=== PATIENT | female | born 1975 | race Caucasian/White ===

== ENCOUNTER → 2018-08-14 11:25 | Outpatient (CLI) | payer OTHER, SELFPAY ==
[2018-08-14 14:08] LABS: Hematocrit 35.5 % (37-47); Hemoglobin 10.6 g/dl (12.0-15.0); Mean Corp Hgb Conc 29.9 g/gl (32-36); Mean Corpuscular Hgb 26.4 pg (27.0-32.0); Mean Corpuscular Volume 88.5 fL (81-99); Mean Platelet Vol. 11.3 fl (6.2-12.0); Platelet Count 327 K/mm3 (150-450); RBC Distribution Width CV 21.3 % (11.6-14.6); RBC Distribution Width SD 66.8 fl (35.1-43.9); Red Blood Count 4.01 M/mm3 (4.2-5.4); White Blood Count 7.4 K/mm3 (4.4-11.0)
[2018-08-14 14:09] LABS: Scan Indicated on CBC? Y/N YES- FLAGS NOTED
[2018-08-14 14:23] LABS: Prothrombin Time (Protime)PT. 13.2 SECONDS (11.7-14.9)
[2018-08-14 14:24] LABS: Partial Thromboplast Time 26.9 Seconds (24.1-36.2)
--- OUTSIDE RECORDS SUMMARY | 2018-10-09 20:22 | XMS RPT_ITS ---
:1975 Author Organization OHIP Care Team Providers Name Role Phone KERI DORANTES) Attending Unavailable SREEKANTH JENSEN Attending Unavailable KERI DORANTES (YODIT) Referring Unavailable DORANTES, AMY (YODIT) Attending Unavailable DORANTES, AMY (YODIT) Referring Unavailable DORANTES, KERI (YODIT) Referring Unavailable DORANTES, KERI (YODIT) Referring Unavailable CEBUL III, BJ A Attending Unavailable KERI DORANTES (YODIT) Attending Unavailable SREEKANTH JENSEN Attending Unavailable KERI DORANTES (YODIT) Referring Unavailable SREEKANTH JENSEN Attending Unavailable SREEKANTH JENSEN Referring Unavailable KERI DORANTES (YODIT) Referring Unavailable SREEKANTH JENSEN Attending Unavailable NEYHART QUEEN, SREEKANTH Attending Unavailable Sheri, Denice Attending Unavailable Cebul III, Bj Primary Care Unavailable Sheri, Denice Attending Unavailable [place], Denice Referring Unavailable Cebul III, Bj Primary Care Unavailable Neyhart-Queen, Sreekanth Attending Unavailable Neyhart-Queen, Sreekanth Referring Unavailable Cebul III, Bj Primary Care Unavailable Neyhart-Queen, Sreekanth Attending Unavailable Neyhart-Queen, Sreekanth Referring Unavailable Cebul III, Bj Primary Care Unavailable PROBLEMS PROBLEMS DATE TYPE CONDITION / CODE ATTENDING STATUS SOURCE 08/15/2018 Unknown G89.18 - Other acute Neyhart-McIntos Active [facility] postprocedural pain h, Sreekanth Community / G89.18(ICD-10) Hospital Repository 08/29/2016 Active Essential (primary) NA Active [facility] hypertension / Clinic Main I10(ICD-10) [place] Repository 06/14/2018 Active Anemia, unspecified NA Active [facility] / D64.9(ICD-10) Clinic Main [place] Repository 05/22/2018 Active Excessive and NA Active [facility] frequent [facility] Main menstruation with [place] regular cycle / Repository N92.0(ICD-10) 10/10/2017 Unknown R92.8 - Other Sheri, Denice Active [facility] abnormal and Community inconclusive Hospital findings on Repository diagnostic imaging of breast / R92.8(ICD-10) 10/09/2017 Unknown Z12.31 - Encounter SheriBenson hydey Active [facility] for screening Community mammogram for Hospital malignant neoplasm Repository of breast / Z12.31(ICD-10) PROCEDURES PROCEDURES No Procedure Records FoundRESULTS RESULTS CNOV Observed: 08/29/2018 Status: COMPLETED Source: [place] 8:20 AM [facility] REPOSITORY Office Visit (WOOB) CLAIRE RICHMOND ([id number]) 1975 F Date Time Provider Department 08/29/18 8:20 AM SREEKANTH JENSEN During your visit today, we recorded the following information about you: Blood pressure Weight 106/68 53.5 kg Sreekanth Eaton MD 08/29/2018 9:03 AM Signed SUBJECTIVE: 42 year old female presents for 2 week post-op exam. Doing well. OBJECTIVE: Incision: Dry and intact, without redness Abdomen: Soft, Non-tender and No palpable masses PLAN: RTO for 6 week check I have reviewed and updated past medical and surgical history, medications and allergies. Sreekanth Eaton MD Referring Provider: SELF [[id number]] Allergies As of Date: 08/29/2018 Noted Allergy Reaction BENTYL (DICYCLOMINE HCL) 04/01/2009 5 - Intolerance Comments: Causes pt. headaches AMOXICILLIN 07/14/2005 PENICILLINS 07/14/2005 Date Reviewed: 08/29/2018 Reviewed by: Raiza Arechiga Ma - Fully Assessed Reason for Visit: Post-Op Visit [1236] Primary Visit Diagnosis:Post-operative state [Z98.890] Prescriptions as of 08/29/2018 Sig: ESCITALOPRAM 20 MG TABLET Take 1 tablet by mouth once d* FERROUS GLUCONATE 324 MG (36 * Take 1 tablet by mouth twice * CENTRUM ORAL Take by mouth once daily. 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 Follow-up and Disposition History Recorded Letter Text Sreekanth Queen MD [facility] [address], [place] [address] 08/29/2018 RE: Claire Richmond : 1975 To Whom It May Concern: Claire has been under my care and may return to work on 09/02/18 with a lifting restriction of [address] until she is 6 weeks post op on 09/26/2018. Sincerely, Sreekanth Queen MD Encounter Status:Closed by SREEKANTH QUEEN MD on 08/29/18 PROGRESS Observed: 08/29/2018 Status: COMPLETED Source: [place] 8:07 AM [facility] HNO ID: [id number] Author: Sreekanth Queen Service: (none) Author Type: Physician Type: Progress Notes Filed: 08/29/2018 9:03 AM Note Text: SUBJECTIVE: 42 year old female presents for 2 week post-op exam. Doing well. OBJECTIVE: Incision: Dry and intact, without redness Abdomen: Soft, Non-tender and No palpable masses PLAN: RTO for 6 week check I have reviewed and updated past medical and surgical history, medications and allergies. Sreekanth Eaton MD DISCHARGE INSTRUCTION Observed: 08/15/2018 Status: F Source: [place] 12:[address] [facility] REPOSITORY [facility] Medical Records Department [address] [place] [address] Instructions for Home/Discharge Instructions 08/15/18 1230 MR#: [id number] Acct: [id number] Name: CLAIRE RICHMOND Rep #: [id number] : 1975 42 From: Sreekanth Queen MD PCP: Bj Angel III, MD Status: REG [facility] Discharge Diet: No Restrictions Discharge Activity: Return to Normal Activity, May Not Drive - while taking narcotic pain medications., May Shower Return to work on:: 09/19/18 May shower in (days): 1 May resume sexual activity in: 6-8 weeks Lifting Restrictions: 20 Call your doctor if your incision/area has: Continuous Slow Oozing, Sudden Increased Bleeding, Increased Pain/ Swelling, Increased Redness, Foul Smelling Discharge Call your doctor if you observe: Fever of 101 or Higher, Inability to urinate, Inability to have a bowel movement, Using more than one pad per hour Cleanse incision/area with: - - do not pick off skin glue- you may shower let soap and water run over incision sites and dab dry. Allergies/Adverse Reactions: Allergies amoxicillin [Amoxicillin] Allergy (Verified 08/09/18 12:59) Rash dicyclomine HCl [From Bentyl] Allergy (Verified 08/09/18 12:59) Other Penicillins Allergy (Verified 08/09/18 12:59) Rash Medications to take at Discharge Multivitamins,Therapeutic [Multivitamin] 1 tablet PO DAILY 07/08/13 Escitalopram Oxalate [Lexapro] 20 mg PO DAILY 08/09/18 Ferrous Gluconate 324 mg PO DAILY 08/09/18 Lisinopril [Zestril] 5 mg PO DAILY 08/09/18 Naproxen Sodium [Aleve] 220 mg PO PRN PRN 08/09/18 Insulin Lispro [Humalog KwikPen] 0 unit SC Q4H PRN PRN insuln.pen 08/15/18 Orders to be completed after discharge: Type AND Screen Time Frame: 08/10/18, Location: None Selected Primary Care Physician: Bj Angel III, MD [Primary Care Provider] - Test Results: Test results from this visit will be discussed in further detail at your follow-up appointment, if applicable. Please Follow Up With: Sreekanth Eaton MD When: as scheduled in 2 weeks 08/15/18 1231 <Electronically signed by Sreekanth Queen MD> Date Sreekanth Eaton MD CC: Bj Angel III, MD OPERATIVE REPORT Observed: 08/15/2018 Status: F Source: [place] 12:[address] [facility] REPOSITORY [facility] Medical Records Department [address] [place] [address] Operative Report 08/15/18 1217 MR#: [id number] Acct: [id number] Name: CLAIRE RICHMOND Rep #: [id number] : 1975 42 From: Sreekanth Queen MD PCP: Jeanne LEE MD,Bj Status: REG [facility] Location: [place] [address] Report of Operation Date of Procedure: 08/15/18 Pre-Operative Diagnosis: fibroid uterus, AUB, Anemia Post-Operative Diagnosis: same Surgery/Procedure Performed:: TLH, Bilateral salpingectomy, Cystoscopy Description of Surgical Findings:: Enlarged Fibroid uterus, normal ovaries bilaterally. Cystoscopy performed good ureteral efflux noted, bladder intact. Uterus weight post op approx 282grams. IUD removed from uterus when Bivalved. leisure studies professor: Marleni Basilio leisure studies professor: Cris Hoyos Type of Anesthesia:: General Special Medications: marcaine .5% Specimen's removed: uterus, cervix, bilateral tubes Drains: Cm Estimated Blood Loss (mL): 60 Fluids Replaced: 800 Description of Procedure: Patient take to OR and prepped and draped in usual sterile fashion in dorsal lithotomy position with her arms tucked in a neurologically safe and neutral position. The uterus sounded to 11 cm. The Vcare uterine manipulator was sutured into place at 3/9:00 position and cm were placed. Attention was turned to the abdomen. All port sites were infiltrated with 0.5% marcaine before the incisions were made. The anterior abdominal wall was tented up with towel clamps and using a direct entry approach a 5 mm supraumbilical port was placed. Intraperitoneal placement was confirmed with the laparoscope and the pneumoperitoneum was created. The patient was placed in Trendelenburg and 5 mm right and left lower quadrant ports were placed under direct visualization. Air seal rapid insufflator was used. The bowel was swept away. Ovaries appeared normal. The mesosalpinx starting at fimbriated end were grasped, clamped, sealed and transected with the Ligasure. The round ligaments were divided. The anterior peritoneum was dissected down to create the bladder flap with blunt dissection and the LigaSure. The uterine arteries were isolated, clamped, sealed and cut. There was minimal back bleeding from the uterus. Straight bites on uterine arteries performed to drop them off the cuff. The Vcare was used as guide to create colpotomy using monopolar tip of ligasure. once specimen was removed attention was turned to vaginal portion. The specimen was handed off. Modified Stokes support stitch placed at uterosacral ligaments through peritoneum using PDS sutrure. The cuff was closed with interrupted 0-vicryl figure of 8 sutures. Cystoscopy was performed bilateral ureters were visualized with good efflux. bladder was intact. cm replaced and sponge stick placed in vagina. The pneumoperitoneum was recreated small oozing from right pedicled- sealed with ligasure and dionne placed- the cuff and pedicles were noted to be hemostatic. trochars removed. The skin incisions were closed with skin glue and 3-0 monocryl in the LLQ port site. The vaginal sweep was completed by me. Grafts/Implants Used: none Grafts/Implants Used: none - Complications none - Admit VTE Documentation VTE Present on Admission: Yes VTE Mechan Device Prophylaxis: SCD's VTE Pharm Prophylaxis ordered?: Yes 08/15/18 1225 <Electronically signed by Sreekanth Queen MD> Date Sreekanth Eaton MD CC: Sreekanth Eaton MD; Bj Angel III, MD Signed ,URINE Collected: 08/15/2018 Status: F Source: [place] 8:[address] [facility] REPOSITORY Order Comment: Reason for Laboratory Test PRE OP TYPE CODE TESTS RESULT OUT OF REFERENCE UNITS RANGE LAB L400.8000 Negative Normal HCGUQUAL Negative Result Comment: Very dilute urine specimens, as indicated by a low specific gravity, may not contain territory representative levels of hCG. If is still suspected, a first morning urine specimen should be collected 48 hours later and tested. Performed By: #### L400.7600 #### [facility] [place] [facility] [address] [place], [address] BEDSIDE GLUCOSE Collected: 08/15/2018 Status: F Source: [place] 8:[address] [facility] REPOSITORY TYPE CODE TESTS RESULT OUT OF RANGE REFERENCE UNITS LAB L501.080 70-110 mg/dL Normal BEDSIDE GLU 92 Result Comment: MANAGEMENT OF PATIENT CARE PER NURSING PROTOCOL Performed By: #### L501.080 #### [facility] [place] [facility] Point of Care [address] [place], [place] [address] CBC-COMPLETE BLOOD CNT Collected: 08/15/2018 Status: F Source: [place] NO DIFF 8:[address] [facility] REPOSITORY TYPE CODE TESTS RESULT OUT OF RANGE REFERENCE UNITS LAB L100.1000 4.4-11.0 K/mm3 Normal WBC 6.8 LAB L100.1200 4.2-5.4 M/mm3 Normal RBC 4.37 LAB L100.1300 12.0-15.0 g/dl Low HGB 11.3 LAB L100.1400 37-47 % Normal HCT 37.8 LAB L100.1500 81-99 fL Normal MCV 86.5 LAB L100.1600 27.0-32.0 pg Low MCH 25.9 LAB L100.1700 32-36 g/gl Low MCHC 29.9 LAB L100.1810 11.6-14.6 % High RDW CV 21.1 LAB L100.1820 35.1-43.9 fl High RDW SD 66.7 LAB L100.1900 150-450 K/mm3 Normal PLT 313 LAB L100.2000 6.2-12.0 fl Normal MPV 9.4 Performed By: #### L100.0500, L100.4500 #### [facility] [place] [facility] [address] [place], [place], [id number] DIFFERENTIAL COMMENT Collected: 08/15/2018 Status: F Source: [place] 8:[address] [facility] REPOSITORY TYPE CODE TESTS RESULT OUT OF RANGE REFERENCE UNITS LAB L100.4500 Normal SMEAR COMMENT SCANNED Result Comment: 1+ ANISOCYTOSIS RARE ELLIPTOCYTES Performed By: #### L100.0500, L100.4500 #### [facility] [place] [facility] [address] [place], [place], [id number] PROTHROMBIN TIME W/INR Collected: 08/15/2018 Status: F Source: [place] 8:[address] [facility] REPOSITORY TYPE CODE TESTS RESULT OUT OF RANGE REFERENCE UNITS LAB L300.4150 11.7-14.9 SECONDS Normal PROTIME 13.3 LAB L300.4200 Normal INR 1.0 Performed By: #### L300.3900, L300.4310 #### [facility] [place] [facility] [address] [place], [address] PARTIAL THROMBOPLAST Collected: 08/15/2018 Status: F Source: [place] TIME 8:[address] [facility] REPOSITORY TYPE CODE TESTS RESULT OUT OF RANGE REFERENCE UNITS LAB L300.4310 24.1-36.2 Seconds Normal PTT 26.0 Performed By: #### L300.3900, L300.4310 #### [facility] [place] [facility] [address] [place], [address] TYPE AND SCREEN Collected: 08/15/2018 Status: F Source: [place] 8:[address] [facility] REPOSITORY Order Comment: Reason for Type AND Screen/Red Cells: SURGERY TYPE CODE TESTS RESULT OUT OF RANGE REFERENCE UNITS LAB B10.0800 A Normal BLOOD TYPE GEL POSITIVE LAB B100.4000 Normal Antibody NEGATIVE Screen Performed By: #### B101.7450 #### [facility] [place] [facility] [address] [place], [address] HYSTERECTOMY SPECIMEN Observed: 08/15/2018 Status: F Source: [place] 12:[address] [facility] REPOSITORY Patient: CLAIRE RICHMOND : 1975 (42/F) Acct Num: [id number] Phys: Angelito BILLINGS,Sreekanth Unit Num: [id number] Loc: [facility] Specimen: [id number] Received: 08/15/18 - 2936 Spec Type: HYSTERECT TISSUES 1 TISSUES: Uterus, NOS GROSS DESCRIPTION Received in fixative is one container labeled with the patient's name and designated uterus, cervix, bilateral fallopian tubes. The specimen consists of a previously opened hysterectomy specimen consisting of uterus with cervix, attached left fallopian tube and detached right fallopian tube. The uterus with cervix weighs 273 gm and measures 12 x 8 x 7 cm. The serosal surface is haynes, glistening. The ectocervical mucosa is unremarkable. The endocervical canal measures 3.5 cm in length and the endocervical mucosa is unremarkable. The endometrial cavity is saucer-shape and measures 5 cm in length and up to 3 cm in width. Sections of the uterine wall reveal multiple intramural and submucosal nodular masses. One of the masses appears to be pedunculated and attached at the level of internal os. The largest mass is pedunculated nodular mass attached at internal os and measures up to 5.5 cm in diameter. Sections of these masses reveal haynes whorled cut surfaces without areas of hemorrhage, necrosis or cystic degeneration. The uninvolved uterine wall measures up to 2.5 cm in thickness. The right fallopian tube measures 5 cm in length and 0.5 cm in diameter. The fimbrial end is identified. The left fallopian tube is similar appearance to right and measures 5 cm in length and 0.6 cm in diameter. Sections of both fallopian tubes reveal unremarkable cut surfaces. Parts Designer sections are submitted in 11 cassettes as follows: 1 - anterior cervix, 2 - posterior cervix, 3 AND 4 - anterior uterine wall, 5 AND 6 - posterior uterine wall, 7 - smaller intramural and submucosal nodular masses, 8 - intermediate sized nodular mass, 9 - largest nodular mass, 10 - right fallopian tube, 11 - left fallopian tube. / [place]:melanie 08/15/18 TC:1 CPT: 38381 HEADER OPERATION: Laparoscopic total hysterectomy, bilateral salpingectomy PRE-OP DIAGNOSIS: Abnormal uterine bleeding, intramural and submucous leiomyoma of uterus, iron deficiency anemia due to chronic blood loss TISSUE SUBMITTED: Uterus, cervix, bilateral fallopian tubes MICROSCOPIC DESCRIPTION Slides are reviewed. MICROSCOPIC DIAGNOSIS Uterus, cervix, bilateral fallopian tubes, total hysterectomy and bilateral salpingectomy: Cervix - no pathologic diagnosis. Endometrium - consistent with exogenous hormone effect. Myometrium - intramural and submucosal leiomyomas (largest measuring 5.5 cm in diameter). Bilateral fallopian tubes - no pathologic diagnosis. Cherie 08/16/18 Signed Darion Foreman 08/16/18 <signature on file> Performed By: #### PHYST #### [facility] [place] [facility] [address] [place], [place] [address] [place], [address] CBC-COMPLETE BLOOD CNT Collected: 08/14/2018 Status: F Source: [place] NO DIFF 11:[address] [facility] REPOSITORY Order Comment: Reason for Laboratory Test PRE OP TYPE CODE TESTS RESULT OUT OF RANGE REFERENCE UNITS LAB L100.1000 4.4-11.0 K/mm3 Normal WBC 7.4 LAB L100.1200 4.2-5.4 M/mm3 Low RBC 4.01 LAB L100.1300 12.0-15.0 g/dl Low HGB 10.6 LAB L100.1400 37-47 % Low HCT 35.5 LAB L100.1500 81-99 fL Normal MCV 88.5 LAB L100.1600 27.0-32.0 pg Low MCH 26.4 LAB L100.1700 32-36 g/gl Low MCHC 29.9 LAB L100.1810 11.6-14.6 % High RDW CV 21.3 LAB L100.1820 35.1-43.9 fl High RDW SD 66.8 LAB L100.1900 150-450 K/mm3 Normal PLT 327 LAB L100.2000 6.2-12.0 fl Normal MPV 11.3 Performed By: #### L100.0500 #### [facility] [place] [facility] [address] [facility] [facility] [place], [place], [id number] PROTHROMBIN TIME W/INR Collected: 08/14/2018 Status: F Source: [place] 11:[address] [facility] REPOSITORY Order Comment: Reason for Laboratory Test PRE OP TYPE CODE TESTS RESULT OUT OF RANGE REFERENCE UNITS LAB L300.4150 11.7-14.9 SECONDS Normal PROTIME 13.2 LAB L300.4200 Normal INR 1.0 Performed By: #### L300.3900, L300.4310 #### [facility] [place] [facility] [address] [place], [place], [address] PARTIAL THROMBOPLAST Collected: 08/14/2018 Status: F Source: [place] TIME 11:[address] [facility] REPOSITORY Order Comment: Reason for Laboratory Test PRE OP TYPE CODE TESTS RESULT OUT OF RANGE REFERENCE UNITS LAB L300.4310 24.1-36.2 Seconds Normal PTT 26.9 Performed By: #### L300.3900, L300.4310 #### [facility] [place] [facility] [address] [place], [address] HISTORY PHYSICAL Observed: 07/31/2018 Status: COMPLETED Source: [place] 9:02 AM [facility] [place] REPOSITORY HNO ID: [id number] Author: Sreekanth Queen Service: (none) Author Type: Physician Type: HANDP Filed: 07/31/2018 9:52 AM Note Text: Claire Richmond is a 42 year old female who presents for AUB, , fibroid uterus, chronic anemia- pt is scheduled for TLH, Bilateral salpingectomy, cystoscopy, possible use of power morcellation with containment system and possible ex lap. Pt had Mirena IUD placed and has had heavy bleeding with this at menses. Pt has chronic anemia- most recent lowest hg/hc was 6.9/24.7- after iron therapy was 8.4/29.9. Pt does not have any dizziness, cp, sob. Pt at this time is not candidate for oral contraceptions due to smoking, MIRENA IUD attempted but has not helped. Pt would like to proceed with surgical mgmt at this time. PAST MEDICAL HISTORY Diagnosis Date - Benign hypertension 08/29/2016 - Carpal tunnel syndrome on both sides 08/26/2013 - Encounter for insertion of mirena IUD 05/22/2018 [facility] - IBS (irritable bowel syndrome) - Iron deficiency anemia due to chronic blood loss 06/26/2018 PAST SURGICAL HISTORY Procedure Laterality Date - DELIVERY ONLY , low cervical, X-2 - REVISE MEDIAN N/CARPAL TUNNEL SURG 07-24-14 RIGHT - REVISE MEDIAN N/CARPAL TUNNEL SURG 08-03-14 LEFT FAMILY HISTORY Problem Relation Age of Onset - Lipids Mother High Cholesterol - Diabetes Father Type 2 - Hypertension Father - Prostate Cancer Father - Diabetes Maternal Grandmother - Hypertension Maternal Grandmother - Cancer Maternal Grandfather lung cancer - None Sister - None Sister Social History Marital status: Spouse name: RICO Years of education: 13 Number of children: 2 Occupational History Occupation Employer [employer] * Social History Main Topics Smoking status: Current Every Day Smoker Packs/day: 1.00 Years: 2.00 Types: Cigarettes Last attempt to quit: 07/03/2013 Smokeless tobacco: Never Used Alcohol use: Yes Comment: Rarely Drug use: No Sexual activity: Yes Partners with: Male control/protection: Pill Current Outpatient Prescriptions: ibuprofen (MOTRIN) 600 mg tablet Take 1 tablet by mouth every 6 hours as needed. FOR PAIN. oxyCODONE-Acetaminophen (PERCOCET) 2.5-325 mg per tablet Take 1 tablet by mouth every 6 hours as needed for Pain for up to 7 days. simethicone, chewable (MYLICON) 80 mg chewable tablet Take 1 tablet by mouth every 6 hours as needed. norethindrone (AYGESTIN) 5 mg tablet Take 2 tablets by mouth as directed. Take 2 tablets every 8 hours until bleeding stops then 1 tablet twice a day x 2 days then 1 tablet daily until your appt. escitalopram oxalate (LEXAPRO) 20 mg tablet Take 1 tablet by mouth once daily. lisinopril (ZESTRIL, PRINIVIL) 5 mg tablet Take 1 tablet by mouth once daily. Ferrous Gluconate 324 mg (36 mg iron) tab Take 1 tablet by mouth twice daily with meals. 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 No current facility-administered medications for this visit. Allergies As of Date: 07/31/2018 Allergen Noted Reaction BENTYL [DICYCLOMINE HCL] 04/01/2009 Intolerance AMOXICILLIN 07/14/2005 PENICILLINS 07/14/2005 Fully Assessed 07/31/2018 REVIEW OF SYSTEMS Abdomen: minimal discomfort. No constipation or diarrhea Bladder: no dysuria, no incontinence . Breast: No breast lumps, nipple d/c, overlying skin changes, redness or skin retraction. Expanded ROS: GENERAL: No weight loss, malaise or fevers Allergies and current medication updated:Yes EXAM: BP 118/72 Ht 5' 2 (1.58m) Wt 120 lb (54.4kg) BMI 21.94 kg/(m2). GENERAL: pleasant, female in no apparent distress HEENT: Normocephalic, atraumatic, mucus membranes moist and no lesions NECK: full range of motion DERMATOLOGY: Normal, without lesions, non-icteric and non-hirsute CARDIAC: Regular rate and rhythm CHEST: Normal inspiratory effort PELVIC: deferred today- normal on previous exam. No iud strings seen on previous exam BIMANUAL: deferred today- Enlarged uterus on previous exam NEURO: alert and oriented x3,exam grossly non-focal ULTRASOUND REPORT: Overall impression: uterus top normal size. there are two fibroids- one that is 5.3cm in greatest dimension that is intramural in nature but does impinge on the enodmetrial cavity. The other fibroid is intramural and is 4.2cm in greatest dimension. There is an IUD present however unable to see the ARMS of the IUD but it appears to be located toward uterine fundus. Endometrial thickness is 6.1mm Right and left ovaries appear normal no free fluid in CDS. Recommendations / therapy: May consider leaving IUD in place if patient is asymptomatic. Could consider other hormonal options to control menstruation if surgical managment is not desired or appropriate for patient. Follow- up: f/u as clinically indicated. _ Indication: IUD location. _ History: Last menstrual period: 04/22/2018. 5th day of cycle. _ Gynecological Ultrasonography: Uterus: normal, anteverted. Size: Longitudinal 106 mm. Anterio- posterior 74 mm. Transverse 85 mm. Volume: 349.1 ml. Fibroids: Fibroid 1: Size: 53 mm x 36 mm x 52 mm. Type: submucous fibroid, more than 50% projects into the endometrial cavity. Position: rt mid uterus. Fibroid 2: Size: 42 mm x 37 mm x 37 mm. Type: posterior. Position: left mid uterus. Endometrium: endometrial cavity could not be seen clearly. Endometrial cavity: is distorted by the presence of a submucous fibroid. Endometrium thickness total: 6.1 mm. Comment: IUD seen in uterus, unknown if in correct location due to large submucosal fibroid. Right Ovary: normal. Visible. Morphology: normal morphology. Right Ovary size: 32 mm x 24 mm x 14 mm. Volume: 5.6 ml. Left Ovary: normal. Visible. Morphology: normal morphology. Left Ovary size: 28 mm x 18 mm x 19 mm. Volume: 5.0 ml. Cul de Sac / Pouch of Alonzo: no free fluid visible. ASSESSMENT AND PLAN: Encounter Diagnosis ICD-10-CM 1. Abnormal uterine bleeding (AUB) N93.9 2. Post-op pain G89.18 oxyCODONE-Acetaminophen (PERCOCET) 2.5-325 mg per tablet 3. Intramural and submucous leiomyoma of uterus D25.1 D25.0 4. Iron deficiency anemia due to chronic blood loss D50.0 5. Pt has been counseled on risks/benefits and alternatives of surgery including but not limited to anesthesia, bleeding, infection, injury to pelvic structures including bowel, bladder, ureters and vessels. Pt wishes to proceed with surgery at this time. 6. Use of power morcellation with containment system reviewed with patient 7. ERAS protocol reviewed 8. Consent signed today- proceed with TLH, Bilateral salpingectomy, cystoscopy Sreekanth Eaton MD CNOV Observed: 07/31/2018 Status: COMPLETED Source: [place] 8:20 AM [facility] REPOSITORY Office Visit (WOOB) CLAIRE RICHMOND ([id number]) 1975 F Date Time Provider Department 07/31/18 8:20 AM SREEKANTH JENSEN WOOB During your visit today, we recorded the following information about you: Blood pressure Weight Height 118/72 54.4 kg 1.575 m Sreekanth Eaton MD 07/31/2018 9:52 AM Signed Claire Richmond is a 42 year old female who presents for AUB, , fibroid uterus, chronic anemia- pt is scheduled for TLH, Bilateral salpingectomy, cystoscopy, possible use of power morcellation with containment system and possible ex lap. Pt had Mirena IUD placed and has had heavy bleeding with this at menses. Pt has chronic anemia- most recent lowest hg/hc was 6.9/24.7- after iron therapy was 8.4/29.9. Pt does not have any dizziness, cp, sob. Pt at this time is not candidate for oral contraceptions due to smoking, MIRENA IUD attempted but has not helped. Pt would like to proceed with surgical mgmt at this time. PAST MEDICAL HISTORY Diagnosis Date - Benign hypertension 08/29/2016 - Carpal tunnel syndrome on both sides 08/26/2013 - Encounter for insertion of mirena IUD 05/22/2018 HMB - IBS (irritable bowel syndrome) - Iron deficiency anemia due to chronic blood loss 06/26/2018 PAST SURGICAL HISTORY Procedure Laterality Date - DELIVERY ONLY , low cervical, X-2 - REVISE MEDIAN N/CARPAL TUNNEL SURG 07-24-14 RIGHT - REVISE MEDIAN N/CARPAL TUNNEL SURG 08-03-14 LEFT FAMILY HISTORY Problem Relation Age of Onset - Lipids Mother High Cholesterol - Diabetes Father Type 2 - Hypertension Father - Prostate Cancer Father - Diabetes Maternal Grandmother - Hypertension Maternal Grandmother - Cancer Maternal Grandfather lung cancer - None Sister - None Sister Social History Marital status: Spouse name: RICO Years of education: 13 Number of children: 2 Occupational History Occupation Employer Comment [employer]* [employer] * Social History Main Topics Smoking status: Current Every Day Smoker Packs/day: 1.00 Years: 2.00 Types: Cigarettes Last attempt to quit: 07/03/2013 Smokeless tobacco: Never Used Alcohol use: Yes Comment: Rarely Drug use: No Sexual activity: Yes Partners with: Male control/protection: Pill Current Outpatient Prescriptions: ibuprofen (MOTRIN) 600 mg tablet Take 1 tablet by mouth every 6 hours as needed. FOR PAIN. oxyCODONE-Acetaminophen (PERCOCET) 2.5-325 mg per tablet Take 1 tablet by mouth every 6 hours as needed for Pain for up to 7 days. simethicone, chewable (MYLICON) 80 mg chewable tablet Take 1 tablet by mouth every 6 hours as needed. norethindrone (AYGESTIN) 5 mg tablet Take 2 tablets by mouth as directed. Take 2 tablets every 8 hours until bleeding stops then 1 tablet twice a day x 2 days then 1 tablet daily until your appt. escitalopram oxalate (LEXAPRO) 20 mg tablet Take 1 tablet by mouth once daily. lisinopril (ZESTRIL, PRINIVIL) 5 mg tablet Take 1 tablet by mouth once daily. Ferrous Gluconate 324 mg (36 mg iron) tab Take 1 tablet by mouth twice daily with meals. 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 No current facility-administered medications for this visit. Allergies As of Date: 07/31/2018 Allergen Noted Reaction BENTYL [DICYCLOMINE HCL] 04/01/2009 Intolerance AMOXICILLIN 07/14/2005 PENICILLINS 07/14/2005 Fully Assessed 07/31/2018 REVIEW OF SYSTEMS Abdomen: minimal discomfort. No constipation or diarrhea Bladder: no dysuria, no incontinence . Breast: No breast lumps, nipple d/c, overlying skin changes, redness or skin retraction. Expanded ROS: GENERAL: No weight loss, malaise or fevers Allergies and current medication updated:Yes EXAM: BP 118/72 Ht 5' 2 (1.58m) Wt 120 lb (54.4kg) BMI 21.94 kg/(m2). GENERAL: pleasant, female in no apparent distress HEENT: Normocephalic, atraumatic, mucus membranes moist and no lesions NECK: full range of motion DERMATOLOGY: Normal, without lesions, non-icteric and non-hirsute CARDIAC: Regular rate and rhythm CHEST: Normal inspiratory effort PELVIC: deferred today- normal on previous exam. No iud strings seen on previous exam BIMANUAL: deferred today- Enlarged uterus on previous exam NEURO: alert and oriented x3,exam grossly non-focal ULTRASOUND REPORT: Overall impression: uterus top normal size. there are two fibroids- one that is 5.3cm in greatest dimension that is intramural in nature but does impinge on the enodmetrial cavity. The other fibroid is intramural and is 4.2cm in greatest dimension. There is an IUD present however unable to see the ARMS of the IUD but it appears to be located toward uterine fundus. Endometrial thickness is 6.1mm Right and left ovaries appear normal no free fluid in CDS. Recommendations / therapy: May consider leaving IUD in place if patient is asymptomatic. Could consider other hormonal options to control menstruation if surgical managment is not desired or appropriate for patient. Follow- up: f/u as clinically indicated. Indication: IUD location. History: Last menstrual period: 04/22/2018. 5th day of cycle. Gynecological Ultrasonography: Uterus: normal, anteverted. Size: Longitudinal 106 mm. Anterio- posterior 74 mm. Transverse 85 mm. Volume: 349.1 ml. Fibroids: Fibroid 1: Size: 53 mm x 36 mm x 52 mm. Type: submucous fibroid, more than 50% projects into the endometrial cavity. Position: rt mid uterus. Fibroid 2: Size: 42 mm x 37 mm x 37 mm. Type: posterior. Position: left mid uterus. Endometrium: endometrial cavity could not be seen clearly. Endometrial cavity: is distorted by the presence of a submucous fibroid. Endometrium thickness total: 6.1 mm. Comment: IUD seen in uterus, unknown if in correct location due to large submucosal fibroid. Right Ovary: normal. Visible. Morphology: normal morphology. Right Ovary size: 32 mm x 24 mm x 14 mm. Volume: 5.6 ml. Left Ovary: normal. Visible. Morphology: normal morphology. Left Ovary size: 28 mm x 18 mm x 19 mm. Volume: 5.0 ml. Cul de Sac / Pouch of Alonzo: no free fluid visible. ASSESSMENT AND PLAN: Encounter Diagnosis ICD-10-CM 1. Abnormal uterine bleeding (AUB) N93.9 2. Post-op pain G89.18 oxyCODONE-Acetaminophen (PERCOCET) 2.5-325 mg per tablet 3. Intramural and submucous leiomyoma of uterus D25.1 D25.0 4. Iron deficiency anemia due to chronic blood loss D50.0 5. Pt has been counseled on risks/benefits and alternatives of surgery including but not limited to anesthesia, bleeding, infection, injury to pelvic structures including bowel, bladder, ureters and vessels. Pt wishes to proceed with surgery at this time. 6. Use of power morcellation with containment system reviewed with patient 7. ERAS protocol reviewed 8. Consent signed today- proceed with TLH, Bilateral salpingectomy, cystoscopy Sreekanth Eaton MD Referring Provider: SELF [[id number]] Allergies As of Date: 07/31/2018 Noted Allergy Reaction BENTYL (DICYCLOMINE HCL) 04/01/2009 5 - Intolerance Comments: Causes pt. headaches AMOXICILLIN 07/14/2005 PENICILLINS 07/14/2005 Date Reviewed: 07/31/2018 Reviewed by: Raiza Arechiga Ma - Fully Assessed Reason for Visit: Pre-Op Visit [1235] Primary Visit Diagnosis:Abnormal uterine bleeding (AUB) [N93.9] Other Visit Diagnoses:Post-op pain [G89.18] Intramural and submucous leiomyoma of uterus [D25.1, D25.0] Iron deficiency anemia due to chronic blood loss [D50.0] Order(s):ibuprofen (MOTRIN) 600 mg tabletTake 1 tablet by mouth every 6 hours as needed. FOR PAIN.Disp: 30 tabletRfl: 0 oxyCODONE-Acetaminophen (PERCOCET) 2.5-325 mg per tabletTake 1 tablet by mouth every 6 hours as needed for Pain for up to 7 days.Disp: 10 tabletRfl: 0 simethicone, chewable (MYLICON) 80 mg chewable tabletTake 1 tablet by mouth every 6 hours as needed.Disp: 30 tabletRfl: 0 Prescriptions as of 07/31/2018 Sig: IBUPROFEN 600 MG TABLET Take 1 tablet by mouth every * OXYCODONE-ACETAMINOPHEN 2.5 M* Take 1 tablet by mouth every * SIMETHICONE 80 MG CHEWABLE TA* Take 1 tablet by mouth every * NORETHINDRONE ACETATE 5 MG TA* Take 2 tablets by mouth as di* ESCITALOPRAM 20 MG TABLET Take 1 tablet by mouth once d* LISINOPRIL 5 MG TABLET Take 1 tablet by mouth once d* FERROUS GLUCONATE 324 MG (36 * Take 1 tablet by mouth twice * CENTRUM ORAL Take by mouth once daily. 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 FOR PAIN. OXYCODONE-ACETAMINOPHEN 2.5 MG-325 M* 10 t* 0 07/31/2018 08/07/2018 Class: Print RX Route: ORAL Sig: Take 1 tablet by mouth every 6 hours as needed for Pain for up to 7 days. SIMETHICONE 80 MG CHEWABLE TABLET 30 t* 0 07/31/2018 Route: ORAL Sig: Take 1 tablet by mouth every 6 hours as needed. Encounter Status:Closed by SREEKANTH QUEEN MD on 07/31/18 PROGRESS Observed: 07/28/2018 Status: COMPLETED Source: [place] 4:38 PM [facility] REPOSIT[facility] HNO ID: [id number] Author: Bj Angel III Service: (none) Author Type: Physician Type: Progress Notes Filed: 07/28/2018 4:38 PM Note Text: Claire, The lab results are normal, with the exception of the anemia. Hopefully the upcoming surgery will lead to correction of the anemia. Bj Angel III, MD, FAAFP CBC Collected: 07/25/2018 Status: F Source: [place] 11:50 AM [facility] REPOSIT[facility] TYPE CODE TESTS RESULT OUT OF REFERENCE UNITS RANGE LAB WBC 3.70-11.00 k/uL WBC 7.46 LAB RBC 3.90-5.20 m/uL Low RBC 3.39 LAB HGB 11.5-15.5 g/dL Low Hemoglobin 8.4 LAB HCT 36.0-46.0 % Low Hematocrit 29.9 LAB MCV 80.0-100.0 fL MCV 88.2 LAB MCH 26.0-34.0 pG Low MCH 24.8 LAB MCHC 30.5-36.0 g/dL Low MCHC 28.1 LAB RDWCV 11.5-15.0 % RDW-CV High 21.2 LAB PLTCT 150-400 k/uL Platelet Count 322 LAB MPV 9.0-12.7 fL MPV 11.0 LAB ABSNUC <0.01 k/uL Absolute nRBC <0.01 Performed By: #### CBC, CMP #### [facility] [address] [address] COMP METABOLIC PANEL Collected: 07/25/2018 Status: F Source: [place] 11:50 AM [facility]POS[facility] TYPE CODE TESTS RESULT OUT OF REFERENCE UNITS RANGE LAB TP 6.3-8.0 g/dL Protein, Total 7.0 LAB ALB 3.9-4.9 g/dL Albumin 4.2 LAB CA 8.5-10.2 mg/dL Calcium, Total 9.0 LAB TBIL 0.2-1.3 mg/dL Bilirubin, Total 0.2 LAB ALKP 34-123 U/L Alkaline Phosphatase 53 LAB AST 13-35 U/L AST 19 LAB GLU 74-99 mg/dL Glucose 78 Result Comment: The [place] Diabetes Association (ADA) provides guidance for cutoff values for fasting glucose and random glucose. The ADA defines fasting as no caloric intake for at least 8 hours. Fas ting plasma glucose results between 100 to 125 mg/dL indicate increased risk for diabetes (prediabetes). Fasting plasma glucose results greater than or equal to 126 mg/dL meet the criteria for diagnosis of diabetes. In the absence of unequivocal hyperglycemia, results should be confirmed by repeat testing. In a patient with classic symptoms of hyperglycemia or hyperglycemic crisis, random plasma glucose results greater than or equal to 200 mg/dL meet the criteria for diagnosis of diabetes. Reference: Standards of Medical Care in Diabetes 2016, [place] Diabetes Association. Diabetes Care. 2016.39(Suppl 1). LAB BUN 7-21 mg/dL BUN 18 LAB CRET 0.58-0.96 mg/dL Creatinine 0.87 LAB NA 136-144 mmol/L Sodium 142 LAB K 3.7-5.1 mmol/L Potassium 4.3 LAB CL 97-105 mmol/L Chloride 102 LAB CO2 22-30 mmol/L CO2 27 LAB AGAP 9-18 mmol/L Anion Gap 13 LAB ALT 7-38 U/L ALT 8 LAB GFRAA eGFR- Amer. >60 LAB GFRNAA . eGFR-All Other Races >60 Result Comment: eGFR (Estimated GFR) Units of measure: mL/min/1.73 meters squared eGFR is derived from the reexpressed MDRD Study equation using the following parameters: serum creatinine, age, gender and race. The creatinine assay has been calibrated to be traceable to IDMS. An eGFR <60 mL/min/1.73m2 for >3 months is consistent with chronic kidney disease. Refer to KDOQI guidelines for clinical interpretation. In patients with unstable renal function, e.g. those with acute kidney injury, the eGFR may not accurately reflect actual GFR. Performed By: #### CBC, CMP #### [facility] [address], [place] [address] SURGICAL PATHOLOGY Observed: 07/11/2018 Status: F Source: [place] 4:36 PM [facility] REPOSITORY Specimen originated from [facility] Specimen #: [id number] Submitting Physician: SREEKANTH QUEEN MD FINAL DIAGNOSIS Endometrium, biopsy: - Limited specimen. - Predominantly blood with scant surface endometrium and focal breakdown changes. MPN/ka 07/15/2018 IGNACIO SCHNEIDER M.D. (Electronic Signature) SPECIMEN SUBMITTED A: ENDOMETRIAL, BIOPSY CLINICAL DATA abnormal uterine bleeding GROSS DESCRIPTION A. Received in formalin are multiple haynes, soft feathery segments of tissue aggregating to 1.8 x 0.7 x 0.2 cm. Totally submitted in one cassette. Gross examination performed at [facility], [address] [place] [address] 07/12/2018 9:58:45 PM Date of Report: 07/15/2018 Date of Procedure: 07/11/2018 Date of Receipt: 07/12/2018 Submitted by: SREEKANTH QUEEN MD Location: [facility] Diagnostic interpretation performed at [facility], [address] [place] [address]. CNOV Observed: 07/11/2018 Status: COMPLETED Source: [place] 4:00 PM [facility] REPOSIT[facility] Office Visit (WOOB) CLAIRE RICHMOND ([id number]) 1975 F Date Time Provider Department 07/11/18 4:00 PM SREEKANTH JENSEN During your visit today, we recorded the following information about you: Blood pressure Weight 120/60 54.9 kg Sreekanth Eatno MD 07/11/2018 4:51 PM Signed Flake Or Shred Roll Operator offered: Patient declines. Claire Richmond is a 42 year old female who presents for concerns regarding heavy bleeding. Pt has h/o heavy menses, fibroid uterus and anemia. 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 Pt reports is tired but no CP, SOB, dizziness. Pt taking naproxyn for pain with menses. Pt is interested in surgical mgmt options at this time. Pt offers no other concerns. PAST MEDICAL HISTORY Diagnosis Date - Benign hypertension 08/29/2016 - Carpal tunnel syndrome on both sides 08/26/2013 - Encounter for insertion of mirena IUD 05/22/2018 HMB - IBS (irritable bowel syndrome) - Iron deficiency anemia due to chronic blood loss 06/26/2018 PAST SURGICAL HISTORY Procedure Laterality Date - DELIVERY ONLY , low cervical, X-2 - REVISE MEDIAN N/CARPAL TUNNEL SURG 07-24-14 RIGHT - REVISE MEDIAN N/CARPAL TUNNEL SURG 08-03-14 LEFT FAMILY HISTORY Problem Relation Age of Onset - Lipids Mother High Cholesterol - Diabetes Father Type 2 - Hypertension Father - Prostate Cancer Father - Diabetes Maternal Grandmother - Hypertension Maternal Grandmother - Cancer Maternal Grandfather lung cancer - None Sister - None Sister Social History Marital status: Spouse name: RICO Years of education: 13 Number of children: 2 Occupational History Occupation Employer Comment [employer]* [employer] * Social History Main Topics Smoking status: Current Every Day Smoker Packs/day: 1.00 Years: 2.00 Types: Cigarettes Last attempt to quit: 07/03/2013 Smokeless tobacco: Never Used Alcohol use: Yes Comment: Rarely Drug use: No Sexual activity: Yes Partners with: Male control/protection: Pill Current Outpatient Prescriptions: norethindrone (AYGESTIN) 5 mg tablet Take 2 tablets by mouth as directed. Take 2 tablets every 8 hours until bleeding stops then 1 tablet twice a day x 2 days then 1 tablet daily until your appt. escitalopram oxalate (LEXAPRO) 20 mg tablet Take 1 tablet by mouth once daily. lisinopril (ZESTRIL, PRINIVIL) 5 mg tablet Take 1 tablet by mouth once daily. Ferrous Gluconate 324 mg (36 mg iron) tab Take 1 tablet by mouth twice daily with meals. 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 No current facility-administered medications for this visit. Allergies As of Date: 07/11/2018 Allergen Noted Reaction BENTYL [DICYCLOMINE HCL] 04/01/2009 Intolerance AMOXICILLIN 07/14/2005 PENICILLINS 07/14/2005 Fully Assessed 07/11/2018 REVIEW OF SYSTEMS Abdomen: cramping. Bladder: no dysuria .. Expanded ROS: GENERAL: Negative for fever, + fatigue Allergies and current medication updated:Yes EXAM: BP 120/60 Wt 121 lb (54.9kg) LMP 06/21/2018 GENERAL: pleasant, female in no apparent distress HEENT: Normocephalic and atraumatic NECK: full range of motion DERMATOLOGY: Normal, without lesions, non-icteric and non-hirsute ABDOMEN: soft, non-tender and no masses PELVIC: external genitalia normal, normal Bartholin's glands, urethra, [place]'s glands, no vulvar lesions, no cervical lesions, good vaginal support, normal appearing perineal body and perianal region, moderate amount of dark red blood in vault - NO IUD strings seen at os BIMANUAL: no adnexal masses, non-tender and enlarged uterus 12 week size- narrow vagina NEURO: alert and oriented x3,exam grossly non-focal EXTREMITIES: normal ASSESSMENT AND PLAN: Encounter Diagnosis ICD-10-CM 1. Pre-op testing Z01.818 HCG QUAL UR B/O 2. Abnormal uterine bleeding (AUB) N93.9 SURGICAL PATHOLOGY 3. Expectant vs Surgical vs hormonal mgmt reviewed with patient. Pt is not candidate for OCPs due to smoking and h/o HTN. We reviewed DEPO provera- pt is not interested in further hormonal options 4. Anemia- Continue PO IRON- Most recent Hg/Hct was 8.9/32.6, lowest was 6.9/24.7 5. Reviewed surgical options with hysterectomy- would perform TLH, bilateral salpingectomy cystoscopy. We reviewed narrow vagina- consider PNEUMOLINER with Morecellation vs Mini laparotomy. Pt understands risks of surgery that were reviewed including but not limted to Bleeding, infection, injury to pelvic structures which includes bladder, bowel, ureters. Pt would like to proceed 6. EMB needed today 7. Pap with HPV done 08/02/17- Results reviewed- scanned to [facility]. NEGATIVE HPV, NEGATIVE PAP 8. Progesterone taper ordered by SILK FOLDER 9. Previous Ultrasounds reviewed IUD seen in EM cavity Sreekanth Eaton MD EMB: Claire Richmond is a 42 year old female who presents today for an endometrial biopsy for abnormal uterine bleeding. test: negative UNIVERSAL PROTOCOL / SAFETY CHECKLIST Procedure to be performed:EMB Sign in Communication: Completed Time Out: Team Confirms the Correct Patient, Correct Procedure, Correct Site and Site Marking, Correct Position (if applicable), Prep and Dry Time (if applicable). Time: Affirmation of Time Out: YES Sign Out Discussion: Completed PROCEDURE: EXTERNAL GENITALIA: Normal in appearance without lesions VAGINA: Normal in appearance without lesions BIOPSY: Speculum placed into the vagina with excellent visualization of the cervix. Cervix cleaned with betadine. Anterior lip of cervix grasped with single toothed tenaculum. Uterus sounded to 10.5 cm. Pipelle inserted into the uterus without difficulty and endometrial biopsy obtained. Specimen labeled and sent to pathology. Hemostasis achieved. Procedure Summary: Patient tolerated procedure well. ASSESSMENT: abnormal uterine bleeding PLAN: Specimens labeled and sent to Pathology. Will notify patient of results in 1-2 weeks. MD Raiza Navarro Ne 07/11/2018 4:11 PM Signed YOUR RECOVERY After your biopsy you may have: ? Vaginal bleeding (less than a normal menstrual period) ? Mild cramping Do NOT put anything in the vagina for 1 week after your endometrial biopsy. This includes: ? tampons ? douches ? and refraining from having sexual intercourse If you have any discomfort, you may take an over the counter pain medication (motrin, advil, ibuprofen, tylenol, etc). If this does not relieve your discomfort, contact the office. It is okay to wear a sanitary pad until the discharge and spotting stops. RISKS Although problems seldom occur with endometrial biopsies, there can be some complications. You may feel faint during and shortly after the procedure as well as have some bleeding after the procedure. There is also a risk of infection after the procedure. These complications are rare and can be easily treated. You should contact you doctor is you have any of the following: ? Heavy bleeding (more than your normal period) ? Bleeding with clots ? Severe abdominal pain ? Fever (more than 100.4F) ? Foul smelling vaginal discharge RESULTS We will have the results of your biopsy in 1-2 weeks. If you do not hear the results of your biopsy after 2 weeks, please contact the office for the results. If you have any additional questions or concerns please do not hesitate to contact the office. Referring Provider: SREEKANTH JENSEN [[id number]] Allergies As of Date: 07/11/2018 Noted Allergy Reaction BENTYL (DICYCLOMINE HCL) 04/01/2009 5 - Intolerance Comments: Causes pt. headaches AMOXICILLIN 07/14/2005 PENICILLINS 07/14/2005 Date Reviewed: 07/11/2018 Reviewed by: Raiza Arechiga Ma - Fully Assessed Reason for Visit: Vaginal Bleeding [203] Primary Visit Diagnosis:Abnormal uterine bleeding (AUB) [N93.9] Other Visit Diagnoses:Pre-op testing [Z01.818] Intramural and submucous leiomyoma of uterus [D25.1, D25.0] Iron deficiency anemia due to chronic blood loss [D50.0] Order(s):HCG QUAL UR B/O [[id number]] Order #: [id number] SURGICAL PATHOLOGY [[id number]] Order #: [id number] Prescriptions as of 07/11/2018 Sig: NORETHINDRONE ACETATE 5 MG TA* Take 2 tablets by mouth as di* ESCITALOPRAM 20 MG TABLET Take 1 tablet by mouth once d* LISINOPRIL 5 MG TABLET Take 1 tablet by mouth once d* FERROUS GLUCONATE 324 MG (36 * Take 1 tablet by mouth twice * CENTRUM ORAL Take by mouth once daily. 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 Vaginal bleeding (less than a normal menstrual period) ? Mild cramping Do NOT put anything in the vagina for 1 week after your endometrial biopsy. This includes: ? tampons ? douches ? and refraining from having sexual intercourse If you have any discomfort, you may take an over the counter pain medication (motrin, advil, ibuprofen, tylenol, etc). If this does not relieve your discomfort, contact the office. It is okay to wear a sanitary pad until the discharge and spotting stops. RISKS Although problems seldom occur with endometrial biopsies, there can be some complications. You may feel faint during and shortly after the procedure as well as have some bleeding after the procedure. There is also a risk of infection after the procedure. These complications are rare and can be easily treated. You should contact you doctor is you have any of the following: ? Heavy bleeding (more than your normal period) ? Bleeding with clots ? Severe abdominal pain ? Fever (more than 100.4F) ? Foul smelling vaginal discharge RESULTS We will have the results of your biopsy in 1-2 weeks. If you do not hear the results of your biopsy after 2 weeks, please contact the office for the results. If you have any additional questions or concerns please do not hesitate to contact the office. Encounter Status:Closed by SREEKANTH QUEEN MD on 07/11/18 PROGRESS Observed: 07/11/2018 Status: COMPLETED Source: [place] 3:46 PM [facility] REPOSIT[facility] O ID: [id number] Author: Sreekanth Queen Service: (none) Author Type: Physician Type: Progress Notes Filed: 07/11/2018 4:51 PM Note Text: Flake Or Shred Roll Operator offered: Patient declines. Claire Richmond is a 42 year old female who presents for concerns regarding heavy bleeding. Pt has h/o heavy menses, fibroid uterus and anemia. 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 Pt reports is tired but no CP, SOB, dizziness. Pt taking naproxyn for pain with menses. Pt is interested in surgical mgmt options at this time. Pt offers no other concerns. PAST MEDICAL HISTORY Diagnosis Date - Benign hypertension 08/29/2016 - Carpal tunnel syndrome on both sides 08/26/2013 - Encounter for insertion of mirena IUD 05/22/2018 [facility]MB - IBS (irritable bowel syndrome) - Iron deficiency anemia due to chronic blood loss 06/26/2018 PAST SURGICAL HISTORY Procedure Laterality Date - DELIVERY ONLY , low cervical, X-2 - REVISE MEDIAN N/CARPAL TUNNEL SURG 07-24-14 RIGHT - REVISE MEDIAN N/CARPAL TUNNEL SURG 08-03-14 LEFT FAMILY HISTORY Problem Relation Age of Onset - Lipids Mother High Cholesterol - Diabetes Father Type 2 - Hypertension Father - Prostate Cancer Father - Diabetes Maternal Grandmother - Hypertension Maternal Grandmother - Cancer Maternal Grandfather lung cancer - None Sister - None Sister Social History Marital status: Spouse name: RICO Years of education: 13 Number of children: 2 Occupational History Occupation Employer [employer] * Social History Main Topics Smoking status: Current Every Day Smoker Packs/day: 1.00 Years: 2.00 Types: Cigarettes Last attempt to quit: 07/03/2013 Smokeless tobacco: Never Used Alcohol use: Yes Comment: Rarely Drug use: No Sexual activity: Yes Partners with: Male control/protection: Pill Current Outpatient Prescriptions: norethindrone (AYGESTIN) 5 mg tablet Take 2 tablets by mouth as directed. Take 2 tablets every 8 hours until bleeding stops then 1 tablet twice a day x 2 days then 1 tablet daily until your appt. escitalopram oxalate (LEXAPRO) 20 mg tablet Take 1 tablet by mouth once daily. lisinopril (ZESTRIL, PRINIVIL) 5 mg tablet Take 1 tablet by mouth once daily. Ferrous Gluconate 324 mg (36 mg iron) tab Take 1 tablet by mouth twice daily with meals. 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 No current facility-administered medications for this visit. Allergies As of Date: 07/11/2018 Allergen Noted Reaction BENTYL [DICYCLOMINE HCL] 04/01/2009 Intolerance AMOXICILLIN 07/14/2005 PENICILLINS 07/14/2005 Fully Assessed 07/11/2018 REVIEW OF SYSTEMS Abdomen: cramping. Bladder: no dysuria .. Expanded ROS: GENERAL: Negative for fever, + fatigue Allergies and current medication updated:Yes EXAM: BP 120/60 Wt 121 lb (54.9kg) LMP 06/21/2018 GENERAL: pleasant, female in no apparent distress HEENT: Normocephalic and atraumatic NECK: full range of motion DERMATOLOGY: Normal, without lesions, non-icteric and non-hirsute ABDOMEN: soft, non-tender and no masses PELVIC: external genitalia normal, normal Bartholin's glands, urethra, [place]'s glands, no vulvar lesions, no cervical lesions, good vaginal support, normal appearing perineal body and perianal region, moderate amount of dark red blood in vault - NO IUD strings seen at os BIMANUAL: no adnexal masses, non-tender and enlarged uterus 12 week size- narrow vagina NEURO: alert and oriented x3,exam grossly non-focal EXTREMITIES: normal ASSESSMENT AND PLAN: Encounter Diagnosis ICD-10-CM 1. Pre-op testing Z01.818 HCG QUAL UR B/O 2. Abnormal uterine bleeding (AUB) N93.9 SURGICAL PATHOLOGY 3. Expectant vs Surgical vs hormonal mgmt reviewed with patient. Pt is not candidate for OCPs due to smoking and h/o HTN. We reviewed DEPO provera- pt is not interested in further hormonal options 4. Anemia- Continue PO IRON- Most recent Hg/Hct was 8.9/32.6, lowest was 6.9/24.7 5. Reviewed surgical options with hysterectomy- would perform TLH, bilateral salpingectomy cystoscopy. We reviewed narrow vagina- consider PNEUMOLINER with Morecellation vs Mini laparotomy. Pt understands risks of surgery that were reviewed including but not limted to Bleeding, infection, injury to pelvic structures which includes bladder, bowel, ureters. Pt would like to proceed 6. EMB needed today 7. Pap with HPV done 08/02/17- Results reviewed- scanned to [employer]. NEGATIVE HPV, NEGATIVE PAP 8. Progesterone taper ordered by SILK FOLDER 9. Previous Ultrasounds reviewed IUD seen in EM cavity Sreekanth Eaton MD EMB: Claire Richmond is a 42 year old female who presents today for an endometrial biopsy for abnormal uterine bleeding. test: negative UNIVERSAL PROTOCOL / SAFETY CHECKLIST Procedure to be performed:EMB Sign in Communication: Completed Time Out: Team Confirms the Correct Patient, Correct Procedure, Correct Site and Site Marking, Correct Position (if applicable), Prep and Dry Time (if applicable). Time: Affirmation of Time Out: YES Sign Out Discussion: Completed PROCEDURE: EXTERNAL GENITALIA: Normal in appearance without lesions VAGINA: Normal in appearance without lesions BIOPSY: Speculum placed into the vagina with excellent visualization of the cervix. Cervix cleaned with betadine. Anterior lip of cervix grasped with single toothed tenaculum. Uterus sounded to 10.5 cm. Pipelle inserted into the uterus without difficulty and endometrial biopsy obtained. Specimen labeled and sent to pathology. Hemostasis achieved. Procedure Summary: Patient tolerated procedure well. ASSESSMENT: abnormal uterine bleeding PLAN: Specimens labeled and sent to Pathology. Will notify patient of results in 1-2 weeks. MD RICHAR Navarro Observed: 07/11/2018 Status: COMPLETED Source: [place] 12:00 AM [facility] REPOSIT[facility] Telephone (WOOB) CLAIRE RICHMOND ([id number]) 1975 F Date Time Provider Department 07/11/18 KERI DORANTES (PLATER HOT DIP) WOOB During your visit today, we recorded the following information about you: Kena Barba RN 07/11/2018 10:55 AM Signed Patient had Mirena IUD inserted on 05/22/18 for heavy bleeding. Patient calling with concerns that she started bleeding again yesterday afternoon and bleeding has gotten heavier today. Patient states she is wearing a super tampon and a pad and is currently changing the super tampon every 2 hours or more. Patient states when she removed the last tampon she had multiple golf ball sized blood clots come out with the tampon. Patient denies any dizziness, chest pain or SOB. Patient is currently having abdominal cramping that she rates at a 2-3. Patient took Naproxen at 930 for the cramping and medication has seemed to help. Discussed with patient removing the tampon and wearing pad only so we can more accurately measure her bleeding. Bleeding precautions reviewed with patient. Patient is concerned with the bleeding because of her anemia in the past. Patients last Hemoglobin was 8.9 on 06/14/18. Please address with plan of care. Kena Dorantes APRN.YODIT 07/11/2018 2:03 PM Addendum Please call Claire to schedule appointment with Dr Queen to discuss hysterectomy. Please call prescription for Aygestin to [facility] retail pharmacy.I spoke with Claire per phone. Keri Dorantes APRN.YODIT Barba RN 07/11/2018 1:46 PM Signed Patient called and appointment given with Dr. Queen for today at 4 pm. Medication called in to [facility] retail pharmacy. Kena Barba RN Allergies As of Date: 07/11/2018 Noted Allergy Reaction BENTYL (DICYCLOMINE HCL) 04/01/2009 5 - Intolerance Comments: Causes pt. headaches AMOXICILLIN 07/14/2005 PENICILLINS 07/14/2005 Date Reviewed: 06/26/2018 Reviewed by: Keri (Yodit) Jose E - Fully Assessed Reason for Visit: Vaginal Bleeding [203] Primary Visit Diagnosis:Abnormal uterine bleeding [N93.9] Order(s):norethindrone (AYGESTIN) 5 mg tabletTake 2 tablets by mouth as directed. Take 2 tablets every 8 hours until bleeding stops then 1 tablet twice a day x 2 days then 1 tablet daily until your appt.Disp: 30 tabletRfl: 0 Prescriptions as of 07/11/2018 Sig: NORETHINDRONE ACETATE 5 MG TA* Take 2 tablets by mouth as di* ESCITALOPRAM 20 MG TABLET Take 1 tablet by mouth once d* LISINOPRIL 5 MG TABLET Take 1 tablet by mouth once d* FERROUS GLUCONATE 324 MG (36 * Take 1 tablet by mouth twice * CENTRUM ORAL Take by mouth once daily. 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 Take 2 tablets every 8 hours until bleeding stops then 1 tablet twice a day x 2 days then 1 tablet daily until your appt. Encounter Status:Closed by KENA BARBA RN on 07/11/18 CNOV Observed: 06/26/2018 Status: COMPLETED Source: [place] 2:45 PM [facility] Office Visit (WOOB) CLAIRE RICHMOND ([id number]) 1975 F Date Time Provider Department 06/26/18 2:45 PM KERI DORANTES (PLATER HOT DIP) WOOB During your visit today, we recorded the following information about you: Blood pressure Weight 128/82 55.8 kg Keri Dorantes APRN.CNP 06/26/2018 3:10 PM Signed SUBJECTIVE: 42 year old female presents for an IUD check. Mirena inserted 05/22/18 and has had spotting for past 10 days. Color pink, last Hgb 8.9 - improved from 6.9. States has more energy. REVIEW OF SYSTEMS: General: Denies pain or fever/chills PHYSICAL EXAMINATION: BP 128/82 Wt 123 lb (55.8kg) LMP 06/21/2018 ABDOMEN:soft, non-tender, no masses, no hepatosplenomegaly and no lymphadenopathy EXTERNAL GENITALIA: Normal genitalia and Bartholins, Urethra, Sken'e normal CERVIX: smooth, no lesions. IUD strings not visible. UTERUS: normal size ADNEXA: negative for tenderness or masses IMPRESSION/PLAN: IUD strings not visible and unable to be teased through cervical os. - Pelvic US ordered for localization of IUD Will notify of results. Follow-up as needed. Keri Dorantes APRN.PLATER HOT DIP Armand Stern Ma 06/26/2018 3:10 PM Signed Would you like a pyrotechnics press tender present for your visit today? No Armand Stern Ma Referring Provider: SELF [[id number]] Allergies As of Date: 06/26/2018 Noted Allergy Reaction BENTYL (DICYCLOMINE HCL) 04/01/2009 5 - Intolerance Comments: Causes pt. headaches AMOXICILLIN 07/14/2005 PENICILLINS 07/14/2005 Date Reviewed: 06/26/2018 Reviewed by: Keri (Systems Software Engineer) Jose E - Fully Assessed Primary Visit Diagnosis:Intrauterine contraceptive device threads lost, initial encounter [T83.32XA] Other Visit Diagnosis:Encounter for routine checking of intrauterine contraceptive device (IUD) [Z30.431] Order(s):PELVIC US [facility] [[id number]] Order #: [id number]: 1 Prescriptions as of 06/26/2018 Sig: ESCITALOPRAM 20 MG TABLET Take 1 tablet by mouth once d* LISINOPRIL 5 MG TABLET Take 1 tablet by mouth once d* FERROUS GLUCONATE 324 MG (36 * Take 1 tablet by mouth twice * CENTRUM ORAL Take by mouth once daily. 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.*INVALID FOR*03/13/2015 DIFFUS CYSTIC MASTOPATHY [N60.19] INVALID FOR* Carpal tunnel syndrome on both sides [G56.03] INVALID FOR*03/13/2015 Mild tobacco abuse [Z72.0] INVALID FOR* Benign hypertension [I10] INVALID FOR* Iron deficiency anemia due to chronic blood los*INVALID FOR* Encounter Status:Closed by KERI DORANTES on 06/26/18 PROGRESS Observed: 06/26/2018 Status: COMPLETED Source: [place] 2:35 PM [facility] HNO ID: [id number] Author: Armand Stern Ma Service: (none) Author Type: (none) Type: Progress Notes Filed: 06/26/2018 3:10 PM Note Text: Would you like a pyrotechnics press tender present for your visit today? No Armand Stern Ma PROGRESS Observed: 06/26/2018 Status: COMPLETED Source: [place] 2:33 PM [facility] HNO ID: [id number] Author: Keri Dorantes Service: (none) Author Type: Nurse Practitioner Type: Progress Notes Filed: 06/26/2018 3:10 PM Note Text: SUBJECTIVE: 42 year old female presents for an IUD check. Mirena inserted 05/22/18 and has had spotting for past 10 days. Color pink, last Hgb 8.9 - improved from 6.9. States has more energy. REVIEW OF SYSTEMS: General: Denies pain or fever/chills PHYSICAL EXAMINATION: BP 128/82 Wt 123 lb (55.8kg) LMP 06/21/2018 ABDOMEN:soft, non-tender, no masses, no hepatosplenomegaly and no lymphadenopathy EXTERNAL GENITALIA: Normal genitalia and Bartholins, Urethra, Sken'e normal CERVIX: smooth, no lesions. IUD strings not visible. UTERUS: normal size ADNEXA: negative for tenderness or masses IMPRESSION/PLAN: IUD strings not visible and unable to be teased through cervical os. - Pelvic US ordered for localization of IUD Will notify of results. Follow-up as needed. Keri Dorantes APRN.CNP PROGRESS Observed: 06/26/2018 Status: COMPLETED Source: [place] 8:08 AM [facility] HNO ID: [id number] Author: Bj Angel III Service: (none) Author Type: Physician Type: Progress Notes Filed: 06/26/2018 8:35 AM Note Text: SUBJECTIVE: This is a 42 year old female that is here today for Chronic Medical Conditions. 1. IBS and anxiety--well controlled. Denies depression. Likes job and home life is good. Good control of IBS on lexapro. 2. hypertension: tolerates medication well 3. History of fibroid uterus with anemia?hemoglobin 6.9 initially, hemoglobin 8.9 on 06/14. Patient initially was treated with ferrous sulfate 325 mg twice per day but stopped taking it on her own because of GI upset. We discussed the need for supplementation and recommended that she take ferrous gluconate 324 mg twice per day. She did state that Mirena has controlled her vaginal bleeding. 4. She continues to smoke and has thought about quitting but is not ready to commit to quitting smoking at this time. No chest pain, angina, dyspnea on exertion, cough, abdominal pain, change in bowel movements, dysuria or change in urination. No joint or back pain. She does not get any regular exercise. PAST MEDICAL HISTORY Diagnosis Date - Benign hypertension 08/29/2016 - Carpal tunnel syndrome on both sides 08/26/2013 - Encounter for insertion of mirena IUD 05/22/2018 [facility] - IBS (irritable bowel syndrome) Current Outpatient Prescriptions on File Prior to Visit: folic acid/multivit,iron,worker's compensation claims examiner (CENTRUM ORAL) Take by mouth once daily. escitalopram oxalate (LEXAPRO) 20 mg tablet Take 1 tablet by mouth once daily. lisinopril (ZESTRIL, PRINIVIL) 5 mg tablet Take 1 tablet by mouth once daily. ferrous sulfate 325 mg (65 mg iron) tablet Take 1 tablet by mouth twice daily. (Patient not taking: Reported on 06/26/2018 ) No current facility-administered medications on file prior to visit. FAMILY HISTORY Problem Relation Age of Onset - Lipids Mother High Cholesterol - Diabetes Father Type 2 - Hypertension Father - Prostate Cancer Father - Diabetes Maternal Grandmother - Hypertension Maternal Grandmother - Cancer Maternal Grandfather lung cancer - None Sister - None Sister Social History Substance Use Topics - Smoking status: Current Every Day Smoker Packs/day: 1.00 Years: 2.00 Types: Cigarettes Last attempt to quit: 07/03/2013 - Smokeless tobacco: Never Used - Alcohol use Yes Comment: Rarely BP 124/88 Pulse 95 Resp 16 Wt 54.9 kg (121 lb) LMP 06/21/2018 (Exact Date) BMI 22.86 kg/m? . OBJECTIVE: APPEARANCE Well appearing, alert, in no acute distress, well-hydrated, well nourished. NECK Supple, no adenopathy; thyroid symmetric, normal size, no bruits HEART RRR with normal S1 and S2, no murmurs, no gallops, no JVD appreciated LUNG clear to auscultation ABDOMEN , soft, non-tender, non-distended, without organomegaly or palpable masses, no tenderness to palpation BACK: no pain to palpation EXTREMITIES Extremities normal, No deformities and No edema Appearance: well dressed well groomed, cooperative and pleasant Behavior: good eye contact Speech: fluent and coherent Mood: euthymic Affect: appropriate Perceptions: none Thought process: goal directed Thought Content: normal Intelligence level: normal Insight: good Judgment: good ASSESSMENT: anxiety--well controlled IBS with diarrhea--well controlled hypertension--well controlled Anemia secondary to blood loss from uterine fibroids?slowly improving Tobacco use disorder PLAN: healthy diet and regular exercise start ferrous gluconate twice/day same medications CMP, CBC in 3 wks return to office 1 yr and as needed recommend quitting smoking Follow-up with [facility] as appointed ROSA Dumont MD, III MD CNOV Observed: 06/26/2018 Status: COMPLETED Source: [place] 8:00 AM [facility] CLAIRE RICHMOND ([id number]) 1975 F Date Time Provider Department 06/26/18 8:00 AM BJ ANGEL III During your visit today, we recorded the following information about you: Pulse Respiration Blood pressure Weight 95/minute 16/minute 124/88 54.9 kg Last Period 06/21/18 Bj Angel III MD 06/26/2018 8:35 AM Signed SUBJECTIVE: This is a 42 year old female that is here today for Chronic Medical Conditions. 1. IBS and anxiety--well controlled. Denies depression. Likes job and home life is good. Good control of IBS on lexapro. 2. hypertension: tolerates medication well 3. History of fibroid uterus with anemia?hemoglobin 6.9 initially, hemoglobin 8.9 on 06/14. Patient initially was treated with ferrous sulfate 325 mg twice per day but stopped taking it on her own because of GI upset. We discussed the need for supplementation and recommended that she take ferrous gluconate 324 mg twice per day. She did state that Mirena has controlled her vaginal bleeding. 4. She continues to smoke and has thought about quitting but is not ready to commit to quitting smoking at this time. No chest pain, angina, dyspnea on exertion, cough, abdominal pain, change in bowel movements, dysuria or change in urination. No joint or back pain. She does not get any regular exercise. PAST MEDICAL HISTORY Diagnosis Date - Benign hypertension 08/29/2016 - Carpal tunnel syndrome on both sides 08/26/2013 - Encounter for insertion of mirena IUD 05/22/2018 [facility] - IBS (irritable bowel syndrome) Current Outpatient Prescriptions on File Prior to Visit: folic acid/multivit,iron,worker's compensation claims examiner (CENTRUM ORAL) Take by mouth once daily. escitalopram oxalate (LEXAPRO) 20 mg tablet Take 1 tablet by mouth once daily. lisinopril (ZESTRIL, PRINIVIL) 5 mg tablet Take 1 tablet by mouth once daily. ferrous sulfate 325 mg (65 mg iron) tablet Take 1 tablet by mouth twice daily. (Patient not taking: Reported on 06/26/2018 ) No current facility-administered medications on file prior to visit. FAMILY HISTORY Problem Relation Age of Onset - Lipids Mother High Cholesterol - Diabetes Father Type 2 - Hypertension Father - Prostate Cancer Father - Diabetes Maternal Grandmother - Hypertension Maternal Grandmother - Cancer Maternal Grandfather lung cancer - None Sister - None Sister Social History Substance Use Topics - Smoking status: Current Every Day Smoker Packs/day: 1.00 Years: 2.00 Types: Cigarettes Last attempt to quit: 07/03/2013 - Smokeless tobacco: Never Used - Alcohol use Yes Comment: Rarely BP 124/88 Pulse 95 Resp 16 Wt 54.9 kg (121 lb) LMP 06/21/2018 (Exact Date) BMI 22.86 kg/m? . OBJECTIVE: APPEARANCE Well appearing, alert, in no acute distress, well- hydrated, well nourished. NECK Supple, no adenopathy; thyroid symmetric, normal size, no bruits HEART RRR with normal S1 and S2, no murmurs, no gallops, no JVD appreciated LUNG clear to auscultation ABDOMEN , soft, non-tender, non-distended, without organomegaly or palpable masses, no tenderness to palpation BACK: no pain to palpation EXTREMITIES Extremities normal, No deformities and No edema Appearance: well dressed well groomed, cooperative and pleasant Behavior: good eye contact Speech: fluent and coherent Mood: euthymic Affect: appropriate Perceptions: none Thought process: goal directed Thought Content: normal Intelligence level: normal Insight: good Judgment: good ASSESSMENT: anxiety--well controlled IBS with diarrhea--well controlled hypertension--well controlled Anemia secondary to blood loss from uterine fibroids?slowly improving Tobacco use disorder PLAN: healthy diet and regular exercise start ferrous gluconate twice/day same medications CMP, CBC in 3 wks return to office 1 yr and as needed recommend quitting smoking Follow-up with [facility] as appointed ROSA Dumont MD, III MD Frank A Cebul, III MD 06/26/2018 8:27 AM Signed PLAN: healthy diet and regular exercise start ferrous gluconate twice/day same medications CMP, CBC in 3 wks return to office 1 yr and as needed recommend quitting smoking Bj Angel III MD Referring Provider: SELF [200] Allergies As of Date: 06/26/2018 Noted Allergy Reaction BENTYL (DICYCLOMINE HCL) 04/01/2009 5 - Intolerance Comments: Causes pt. headaches AMOXICILLIN 07/14/2005 PENICILLINS 07/14/2005 Date Reviewed: 06/26/2018 Reviewed by: Candi ([facility]) ANUPAMA Miller - Fully Assessed Reason for Visit: Medication Follow-up [270] Primary Visit Diagnosis:Irritable bowel syndrome with diarrhea [K58.0] Other Visit Diagnoses:Anxiety state [F41.1] Benign hypertension [I10] Iron deficiency anemia due to chronic blood loss [D50.0] Mild tobacco abuse [Z72.0] Order(s):escitalopram oxalate (LEXAPRO) 20 mg tabletTake 1 tablet by mouth once daily.Disp: 30 tabletRfl: 11 lisinopril (ZESTRIL, PRINIVIL) 5 mg tabletTake 1 tablet by mouth once daily.Disp: 30 tabletRfl: 11 Ferrous Gluconate 324 mg (36 mg iron) tabTake 1 tablet by mouth twice daily with meals.Disp: 60 tabletRfl: 5 COMP METABOLIC PANEL [SQCMP] Order #: [id number] FUTURE Prescriptions as of 06/26/2018 Sig: ESCITALOPRAM 20 MG TABLET Take 1 tablet by mouth once d* LISINOPRIL 5 MG TABLET Take 1 tablet by mouth once d* CENTRUM ORAL Take by mouth once daily. 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.*INVALID FOR*03/13/2015 DIFFUS CYSTIC MASTOPATHY [N60.19] INVALID FOR* Carpal tunnel syndrome on both sides [G56.03] INVALID FOR*03/13/2015 Mild tobacco abuse [Z72.0] INVALID FOR* Benign hypertension [I10] INVALID FOR* Iron deficiency anemia due to chronic blood los*INVALID FOR* Other instructions from your clinician: PLAN: healthy diet and regular exercise start ferrous gluconate twice/day same medications CMP, CBC in 3 wks return to office 1 yr and as needed recommend quitting smoking Bj Angel III MD Prescriptions ordered this encounter Disp Refills Start End ESCITALOPRAM 20 MG TABLET 30 t* 11 06/26/2018 Route: ORAL Sig: Take 1 tablet by mouth once daily. LISINOPRIL 5 MG TABLET 30 t* 11 06/26/2018 Route: ORAL Sig: Take 1 tablet by mouth once daily. FERROUS GLUCONATE 324 MG (36 MG IRON* 60 t* 5 06/26/2018 Route: ORAL Sig: Take 1 tablet by mouth twice daily with meals. Medications Discontinued During This Encounter ferrous sulfate 325 mg (65 mg iron) * 30 t* 3 05/23/2018 06/26/2018 Class: OTC Route: ORAL Sig: Take 1 tablet by mouth twice daily. Patient not taking: Reported on 06/26/2018 Disc: Course of therapy completed escitalopram oxalate (LEXAPRO) 20 mg* 30 t* 11 07/26/2017 06/26/2018 Route: ORAL Sig: Take 1 tablet by mouth once daily. Disc: Reason for discontinue is not on file. lisinopril (ZESTRIL, PRINIVIL) 5 mg * 30 t* 11 07/26/2017 06/26/2018 Route: ORAL Sig: Take 1 tablet by mouth once daily. Disc: Reason for discontinue is not on file. Encounter Status:Closed by BJ ANGEL III, MD on 06/26/18 CBC Collected: 06/14/2018 Status: F Source: [place] 11:34 AM [facility] REPOS[facility] TYPE CODE TESTS RESULT OUT OF REFERENCE UNITS RANGE LAB WBC 3.70-11.00 k/uL WBC 8.52 LAB RBC 3.90-5.20 m/uL Low RBC 3.66 LAB HGB 11.5-15.5 g/dL Low Hemoglobin 8.9 LAB HCT 36.0-46.0 % Low Hematocrit 32.6 LAB MCV 80.0-100.0 fL MCV 89.1 LAB MCH 26.0-34.0 pG Low MCH 24.3 LAB MCHC 30.5-36.0 g/dL Low MCHC 27.3 LAB RDWCV 11.5-15.0 % RDW-CV High 18.0 LAB PLTCT 150-400 k/uL Platelet Count 323 LAB MPV 9.0-12.7 fL MPV 10.1 LAB ABSNUC <0.01 k/uL Absolute nRBC <0.01 Performed By: #### CBC #### [facility] [address], [place] [address] CBC Collected: 05/22/2018 Status: F Source: [place] 3:55 PM [facility] REPOSITORY TYPE CODE TESTS RESULT OUT OF REFERENCE UNITS RANGE LAB WBC 3.70-11.00 k/uL WBC 9.09 LAB RBC 3.90-5.20 m/uL Low RBC 2.86 LAB HGB 11.5-15.5 g/dL Low Hemoglobin 6.9 LAB HCT 36.0-46.0 % Low Hematocrit 24.7 LAB MCV 80.0-100.0 fL MCV 86.4 LAB MCH 26.0-34.0 pG Low MCH 24.1 LAB MCHC 30.5-36.0 g/dL Low MCHC 27.9 LAB RDWCV 11.5-15.0 % RDW-CV High 16.6 LAB PLTCT 150-400 k/uL Platelet Count 369 LAB MPV 9.0-12.7 fL MPV 10.2 LAB ABSNUC <0.01 k/uL Absolute nRBC <0.01 Performed By: #### CBC, TSH #### [facility] [address], [place] [address] TSH Collected: 05/22/2018 Status: F Source: [place] 3:55 PM [facility] REPOSITORY TYPE CODE TESTS RESULT OUT OF RANGE REFERENCE UNITS LAB TSH 0.400-5.500 uU/mL TSH 1.510 Result Comment: If the patient is , TSH reference range varies by gestational period: First Trimester 0.100-2.500 uU/mL Second Trimester 0.200-3.000 uU/mL Third Trimester 0.300-3.000 uU/mL References: 1. Champion L, Mayela M, Raul EK, et al. Management of Thyroid Dysfunction during and : An Endocrine Society Clinical Practice Guideline. J Clin Endocrinol Metab, 2012:97:6458-3094. 2. Enrrique MESSINA. Overview of thyroid disease in . UpToDate. 2016. Accessed on March 03, 2016. Performed By: #### CBC, TSH #### [facility] [address] [place], [place] [address] CNOV Observed: 05/22/2018 Status: COMPLETED Source: [place] 3:30 PM [facility] REPOSITORY Office Visit (WOOB) CLAIRE RICHMOND ([id number]) 1975 F Date Time Provider Department 05/22/18 3:30 PM KERI DORANTES ([facility]) WOOB During your visit today, we recorded the following information about you: Blood pressure Weight 114/66 54 kg Keri Dorantes APRN.CNP 05/22/2018 3:41 PM Signed Claire Richmond presents today for IUD insertion for heavy menstrual bleeding. Patient's last menstrual period was 04/22/2018 (exact date). Has been feeling lightheaded lately. Last menses started 5 days ago - heavy with clots size of quarter. GC/chlamydia: Not done: no risk factors and/or patient declines screening test: negative Side effects including irregular bleeding were discussed with the patient. She understands that it should be removed in 5 years or sooner if she desires a . IUD source: office provided IUD lot #: [id number] Exp date: 10/2020 UNIVERSAL PROTOCOL / SAFETY CHECKLIST Procedure to be performed: Mirena insertion Sign in Communication: Completed Time Out: Team Confirms the Correct Patient, Correct Procedure, Correct Site and Site Marking, Correct Position (if applicable), Prep and Dry Time (if applicable). Time: 1521 Affirmation of Time Out: YES Sign Out Discussion: Completed Keri Dorantes APRN.CNP The uterus sounded to 9 cm and the uterus is Anteverted.. After prepping the cervix with betadine and using sterile technique, the Mirena IUD was inserted without difficulty and the string was cut to 3 cm from the external os of the cervix. Patient tolerated procedure well. PLAN: Patient was advised to observe for signs and symptoms of infection including but not limited to fever, malodorous vaginal discharge and/or pain. She was told to check the string monthly for accurate placement. Bleeding expectations were reviewed. Follow up in one month. Check CBC and TSH. CALDERON Serrano Ma 05/22/2018 2:52 PM Signed POST IUD INSTRUCTIONS You may have irregular bleeding during the first 3 months of use. You may have mild-severe cramping for the next 48 hours. You may use over the counter medication (Motrin, Tylenol) as needed. Your IUD must be removed or replaced in 3 years if you have a Elma, 5 years if you have a Mirena or Kyleena and 10 years if you have a Paragard. Call my office for signs/symptoms of infection such as severe cramping, fever, or unusual bleeding. Check for string placement as instructed by your doctor. If you have any additional questions, please contact the office. Armand Stern Ma 05/22/2018 3:41 PM Signed Would you like a pyrotechnics press tender present for your visit today? No Armand Stern Ma 05/22/2018 3:42 PM Signed Addended by: ARMAND STERN MA on: 05/22/2018 03:42 PM Modules accepted: Orders, Marge Dorantes APRN.CNP 05/22/2018 4:04 PM Signed Addended by: KERI DORANTES on: 05/22/2018 04:04 PM Modules accepted: Orders Referring Provider: KERI DORANTES ([facility]) [[id number]] Allergies As of Date: 05/22/2018 Noted Allergy Reaction BENTYL (DICYCLOMINE HCL) 04/01/2009 5 - Intolerance Comments: Causes pt. headaches AMOXICILLIN 07/14/2005 PENICILLINS 07/14/2005 Date Reviewed: 05/22/2018 Reviewed by: Keri [facility]Fram[facility] HospitalJennifer Dorantes - Fully Assessed Reason for Visit: Insertion Of IUD [291] Primary Visit Diagnosis:Encounter for insertion of mirena IUD [Z30.430] Other Visit Diagnosis:Menorrhagia with regular cycle [N92.0] Order(s):HCG QUAL UR B/O [1478078] Order #: [id number] INSERT INTRAUTERINE DEVICE [[id number]] Order #: [id number] CBC [SQCBC] Order #: [id number] FUTURE TSH BLD [SQTSH] Order #: [id number] FUTURE [] levonorgestrel 20 mcg/24 hr (5 years) 1 Each intrauterine device (MIRENA)Disp: Rfl: Prescriptions as of 05/22/2018 Sig: CENTRUM ORAL Take by mouth once daily. 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 You may have mild-severe cramping for the next 48 hours. You may use over the counter medication (Motrin, Tylenol) as needed. Your IUD must be removed or replaced in 3 years if you have a Elma, 5 years if you have a Mirena or Kyleena and 10 years if you have a Paragard. Call my office for signs/symptoms of infection such as severe cramping, fever, or unusual bleeding. Check for string placement as instructed by your doctor. If you have any additional questions, please contact the office. Prescriptions ordered this encounter Disp Refills Start End LEVONORGESTREL 20 MCG/24 HR (5 YEARS* 05/22/2018 05/22/2018 Route: INTRAUTERINE Medications Discontinued During This Encounter Levonorgestrel-Ethinyl Estrad (ORSYT* 05/22/2018 Class: Historical Med Route: ORAL Sig: Take 1 tablet by mouth once daily. Disc: Reason for discontinue is not on file. miSOPROStol (CYTOTEC) 200 mcg tablet 4 ta* 0 04/24/2018 05/22/2018 Sig: Insert 2 tables vaginally night prior to procedure and 2 tablets morning of procedure. Disc: Reason for discontinue is not on file. Disposition: Return in about 5 weeks (around 06/26/2018) for Follow Up In 4-6 Weeks. Follow-up and Disposition History Recorded Encounter Status:Closed by KERI DORANTES on 05/22/18 PROGRESS Observed: 05/22/2018 Status: COMPLETED Source: [place] 3:01 PM [facility] REPOSITORY HNO ID: [id number] Author: Armand Stern Ma Service: (none) Author Type: (none) Type: Progress Notes Filed: 05/22/2018 3:41 PM Note Text: Would you like a pyrotechnics press tender present for your visit today? No Armand Stern Ma PROGRESS Observed: 05/22/2018 Status: COMPLETED Source: [place] 2:52 PM [facility] REPOSITORY HNO ID: [id number] Author: Keri Dorantes Service: (none) Author Type: Nurse Practitioner Type: Progress Notes Filed: 05/22/2018 3:41 PM Note Text: Claire Richmond presents today for IUD insertion for heavy menstrual bleeding. Patient's last menstrual period was 04/22/2018 (exact date). Has been feeling lightheaded lately. Last menses started 5 days ago - heavy with clots size of quarter. GC/chlamydia: Not done: no risk factors and/or patient declines screening test: negative Side effects including irregular bleeding were discussed with the patient. She understands that it should be removed in 5 years or sooner if she desires a . IUD source: office provided IUD lot #: [id number] Exp date: 10/2020 UNIVERSAL PROTOCOL / SAFETY CHECKLIST Procedure to be performed: Mirena insertion Sign in Communication: Completed Time Out: Team Confirms the Correct Patient, Correct Procedure, Correct Site and Site Marking, Correct Position (if applicable), Prep and Dry Time (if applicable). Time: 152 Affirmation of Time Out: YES Sign Out Discussion: Completed Keri Dorantes APRN.CNP The uterus sounded to 9 cm and the uterus is Anteverted.. After prepping the cervix with betadine and using sterile technique, the Mirena IUD was inserted without difficulty and the string was cut to 3 cm from the external os of the cervix. Patient tolerated procedure well. PLAN: Patient was advised to observe for signs and symptoms of infection including but not limited to fever, malodorous vaginal discharge and/or pain. She was told to check the string monthly for accurate placement. Bleeding expectations were reviewed. Follow up in one month. Check CBC and TSH. Keri Dorantes APRN.CNP PROGRESS Observed: 04/24/2018 Status: COMPLETED Source: [place] 10:40 AM [facility] REPOSITORY HNO ID: [id number] Author: Keri Dorantes Service: (none) Author Type: Nurse Practitioner Type: Progress Notes Filed: 04/24/2018 11:57 AM Note Text: Flake Or Shred Roll Operator offered: Patient declines. Claire Richmond is a 42 year old female who presents for problem visit Right ovarian pain. HPI: Onset of right sided pelvic ovarian pain yesterday. First episode of similar pain 2 months ago - same side and pain lasted for approximately 3 days. Pain worse with standing, movement and pressure. Started menses 3 days ago. This period is heavy with clots some bigger than a quarter. Not all periods are heavy. Does not want pelvic exam due to heavy menses. PAST MEDICAL HISTORY Diagnosis Date - Benign hypertension 08/29/2016 - Carpal tunnel syndrome on both sides 08/26/2013 - IBS (irritable bowel syndrome) PAST SURGICAL HISTORY Procedure Laterality Date - DELIVERY ONLY , low cervical, X-2 - REVISE MEDIAN N/CARPAL TUNNEL SURG 07-24-14 RIGHT - REVISE MEDIAN N/CARPAL TUNNEL SURG 08-03-14 LEFT FAMILY HISTORY Problem Relation Age of Onset - Diabetes Maternal Grandmother - Hypertension Maternal Grandmother - Diabetes Father Type 2 - Hypertension Father - Cancer Maternal Grandfather lung cancer - Lipids Mother High Cholesterol - Prostate Cancer Father - None Sister - None Sister Social History Marital status: Spouse name: RICO Years of education: 13 Number of children: 2 Occupational History 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 Levonorgestrel-Ethinyl Estrad (ORSYTHIA) 0.1mg - 20mcg per tablet Take 1 tablet by mouth once daily. escitalopram oxalate (LEXAPRO) 20 mg tablet Take 1 tablet by mouth once daily. lisinopril (ZESTRIL, PRINIVIL) 5 mg tablet Take 1 tablet by mouth once daily. norgestimate 0.25 mg-ethinyl estradiol 35 mcg (ORTHO-CYCLEN, 28,) 0.25-35 mg-mcg per tablet Take 1 tablet by mouth once daily. (Patient not taking: Reported on 04/24/2018 ) No current facility-administered medications for this visit. Allergies As of Date: 04/24/2018 Allergen Noted Reaction BENTYL [DICYCLOMINE HCL] 04/01/2009 Intolerance AMOXICILLIN 07/14/2005 PENICILLINS 07/14/2005 Fully Assessed 04/24/2018 REVIEW OF SYSTEMS Abdomen: No bloating, early satiety, indigestion, or increased flatulence. No abdominal pain, nausea, vomiting, diarrhea, or constipation. Bladder: No dysuria, gross hematuria, urinary frequency, urinary urgency, or incontinence. Allergies and current medication updated:Yes EXAM: BP 130/74 Wt 121 lb (54.9kg) LMP 04/22/2018 GENERAL: pleasant, female in no apparent distress CHEST: Normal inspiratory effort ABDOMEN: soft, no masses and Moderate tenderness in RLQ PELVIC: external genitalia normal, normal Bartholin's glands, urethra, [place]'s glands, no vulvar lesions, no cervical lesions, good vaginal support, physiologic discharge present, normal appearing perineal body and perianal region BIMANUAL: uterus normal size, shape and consistency, no adnexal masses and Moderate tenderness right adnexa NEURO: alert and oriented x3,exam grossly non-focal ASSESSMENT/PLAN: 1. Pelvic pain in female - ICD9: 625.9, ICD10: R10.2 (primary diagnosis) - PELVIC US WHI 2. Menorrhagia with regular cycle - ICD9: 626.2, ICD10: N92.0 - INSERT INTRAUTERINE DEVICE - PELVIC US WHI 3. General counseling and advice for contraceptive management - ICD9: V25.09, ICD10: Z30.09 42 yr old, smoke 1 ppd, lisinopril for hypertension. Discussed risks with OCP use - wants to continue because it helps her acne but is agreeable to using an IUD to decrease risks. - INSERT INTRAUTERINE DEVICE will pre-certify. Cytotec to pharmacy. - MISOPROSTOL 200 MCG TABLET Greater than 75% of visit spent face to face counseling with patient. Will notify of results. Follow-up for IUD insertion and as needed. Will need annual visit. CALDERON Serrano Observed: 04/24/2018 Status: COMPLETED Source: [place] 10:30 AM [facility] REPOSITORY Office Visit (WOOB) CLAIRE RICHMOND ([id number]) 1975 F Date Time Provider Department 04/24/18 10:30 AM KERI DORANTES ([facility]) WOO[facility] During your visit today, we recorded the following information about you: Blood pressure Weight Last Period 130/74 54.9 kg 04/22/18 Keri Dorantes APRN.CNP 04/24/2018 11:57 AM Signed Flake Or Shred Roll Operator offered: Patient declines. Claire Richmond is a 42 year old female who presents for problem visit Right ovarian pain. HPI: Onset of right sided pelvic ovarian pain yesterday. First episode of similar pain 2 months ago - same side and pain lasted for approximately 3 days. Pain worse with standing, movement and pressure. Started menses 3 days ago. This period is heavy with clots some bigger than a quarter. Not all periods are heavy. Does not want pelvic exam due to heavy menses. PAST MEDICAL HISTORY Diagnosis Date - Benign hypertension 08/29/2016 - Carpal tunnel syndrome on both sides 08/26/2013 - IBS (irritable bowel syndrome) PAST SURGICAL HISTORY Procedure Laterality Date - DELIVERY ONLY , low cervical, X-2 - REVISE MEDIAN N/CARPAL TUNNEL SURG 07-24-14 RIGHT - REVISE MEDIAN N/CARPAL TUNNEL SURG 08-03-14 LEFT FAMILY HISTORY Problem Relation Age of Onset - Diabetes Maternal Grandmother - Hypertension Maternal Grandmother - Diabetes Father Type 2 - Hypertension Father - Cancer Maternal Grandfather lung cancer - Lipids Mother High Cholesterol - Prostate Cancer Father - None Sister - None Sister Social History Marital status: Spouse name: RICO Years of education: 13 Number of children: 2 Occupational History 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 Levonorgestrel-Ethinyl Estrad (ORSYTHIA) 0.1mg - 20mcg per tablet Take 1 tablet by mouth once daily. escitalopram oxalate (LEXAPRO) 20 mg tablet Take 1 tablet by mouth once daily. lisinopril (ZESTRIL, PRINIVIL) 5 mg tablet Take 1 tablet by mouth once daily. norgestimate 0.25 mg-ethinyl estradiol 35 mcg (ORTHO-CYCLEN, 28,) 0.25-35 mg-mcg per tablet Take 1 tablet by mouth once daily. (Patient not taking: Reported on 04/24/2018 ) No current facility-administered medications for this visit. Allergies As of Date: 04/24/2018 Allergen Noted Reaction BENTYL [DICYCLOMINE HCL] 04/01/2009 Intolerance AMOXICILLIN 07/14/2005 PENICILLINS 07/14/2005 Fully Assessed 04/24/2018 REVIEW OF SYSTEMS Abdomen: No bloating, early satiety, indigestion, or increased flatulence. No abdominal pain, nausea, vomiting, diarrhea, or constipation. Bladder: No dysuria, gross hematuria, urinary frequency, urinary urgency, or incontinence. Allergies and current medication updated:Yes EXAM: BP 130/74 Wt 121 lb (54.9kg) LMP 04/22/2018 GENERAL: pleasant, female in no apparent distress CHEST: Normal inspiratory effort ABDOMEN: soft, no masses and Moderate tenderness in RLQ PELVIC: external genitalia normal, normal Bartholin's glands, urethra, [place]'s glands, no vulvar lesions, no cervical lesions, good vaginal support, physiologic discharge present, normal appearing perineal body and perianal region BIMANUAL: uterus normal size, shape and consistency, no adnexal masses and Moderate tenderness right adnexa NEURO: alert and oriented x3,exam grossly non-focal ASSESSMENT/PLAN: 1. Pelvic pain in female - ICD9: 625.9, ICD10: R10.2 (primary diagnosis) - PELVIC US WHI 2. Menorrhagia with regular cycle - ICD9: 626.2, ICD10: N92.0 - INSERT INTRAUTERINE DEVICE - PELVIC US WHI 3. General counseling and advice for contraceptive management - ICD9: V25.09, ICD10: Z30.09 42 yr old, smoke 1 ppd, lisinopril for hypertension. Discussed risks with OCP use - wants to continue because it helps her acne but is agreeable to using an IUD to decrease risks. - INSERT INTRAUTERINE DEVICE will pre-certify. Cytotec to pharmacy. - MISOPROSTOL 200 MCG TABLET Greater than 75% of visit spent face to face counseling with patient. Will notify of results. Follow-up for IUD insertion and as needed. Will need annual visit. Keri Dorantes APRN.PLATER HOT DIP Referring Provider: SELF [200] Allergies As of Date: 04/24/2018 Noted Allergy Reaction BENTYL (DICYCLOMINE HCL) 04/01/2009 5 - Intolerance Comments: Causes pt. headaches AMOXICILLIN 07/14/2005 PENICILLINS 07/14/2005 Date Reviewed: 04/24/2018 Reviewed by: Keri (Systems Software Engineer) Jose E - Fully Assessed Reason for Visit: RLQ Pain [Other] Primary Visit Diagnosis:Pelvic pain in female [R10.2] Other Visit Diagnoses:Menorrhagia with regular cycle [N92.0] General counseling and advice for contraceptive management [Z30.09] Order(s):PELVIC US WHI [[id number]] Order #: [id number]: 1 INSERT INTRAUTERINE DEVICE [[id number]] Order #: [id number] miSOPROStol (CYTOTEC) 200 mcg tabletInsert 2 tables vaginally night prior to procedure and 2 tablets morning of procedure.Disp: 4 tabletRfl: 0 Prescriptions as of 04/24/2018 Sig: CENTRUM ORAL Take by mouth once daily. 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 Medications Discontinued During This Encounter norgestimate 0.25 mg-ethinyl estradi* 28 t* 0 07/17/2017 04/24/2018 Route: ORAL Sig: Take 1 tablet by mouth once daily. Patient not taking: Reported on 04/24/2018 Disc: Reason for discontinue is not on file. Encounter Status:Closed by KERI DORANTES on 04/24/18 DIAG MAMM W/CAD, Observed: 10/10/2017 Status: F Source: [facility] [place] 2:[address] [facility] REPOSITORY [facility] Imaging Services [address] [place] [address] [place] [address] DIAG MAMM W/CAD, UNILAT MR#: [id number] Acct: [id number] Name: CLAIRE RICHMOND Rep #: [id number] : 1975 F 41 From: Audie Dave MD PCP: Bj Angel III, MD Status: REG CLI Study: DIAG MAMM W/CAD, UNILAT Date of Exam: 10/10/17 Exam# [id number] Ordering Dr: Denice Wade SILK FOLDER-C MAMMOGRAPHY - UNILATERAL DIAGNOSTIC: LEFT BREAST REASON FOR EXAM: Female, 41 years old. The patient was recalled for additional views of the left breast. PERTINENT HISTORY: Non-contributory. TECHNIQUE: Exaggerated craniocaudad views were obtained. CAD: Full Field Digital Mammography with Computer Added Detection was performed. COMPARISON: Comparison is made with prior study dated April 08, 2018. FINDINGS: Breast Composition: The breasts are heterogeneously dense, which may obscure small masses. The calcifications are seen in the deep upper medial portion of the left breast. These are unchanged. Routine annual mammographic follow-up is recommended. No other significant abnormalities are identified. [facility]/DIAG MAMM W/CAD, UNILAT IMPRESSION: Stable unilateral diagnostic mammogram. One year follow-up mammogram recommended. (A) ASSESSMENT CATEGORY: BIRADS Category 2: Benign. A letter regarding these results will be sent to the patient by the facility within 30 days. Approximately 10% of breast cancers are not detected by mammography. A normal mammogram should not delay biopsy of a clinically suspicious abnormality. Electronically Signed: Audie Dave MD at 15:45 EST Tel [phone], Service support , CC: TONYA Wade; Bj Angel III, MD Regulatory Compliance Officer: Signed SCREENING MAMM (CAD), Observed: 10/09/2017 Status: F Source: RAJAN BILAT 8:[address] [facility] REPOSITORY [facility] Imaging Services [address] [place] [address] SCREENING MAMM (CAD), BILAT MR#: [id number] Acct: [id number] Name: CLAIRE RICHMOND Rep #: [id number] : 1975 F 41 From: Audie Dave MD PCP: Bj Angel III, MD Status: REG CLI Study: SCREENING MAMM (CAD), BILAT Date of Exam: 10/09/17 Exam# [id number] Ordering Dr: Denice Wade SILK FOLDER-Shellie MAMMOGRAPHY - BILATERAL SCREENING REASON FOR EXAM: Female, 41 years old. Routine annual screening examination. PERTINENT HISTORY: Non-contributory. TECHNIQUE: Digital bilateral breast estefani (3D mammographic acquisition) in the CC and MLO projections. 2-D mediolateral oblique (MLO) and craniocaudad (CC) views of both breasts were obtained. CAD: Full Field Digital Mammography with Computer Added Detection was performed. COMPARISON: Comparison is made with prior mammogram dated May 01, 2016. FINDINGS: Breast Composition: The breasts are heterogeneously dense, which may obscure small masses. Focal calcification is seen in the inferior aspect of the left axilla. The patient will be recalled for additional views including 90 degree lateral and exaggerated craniocaudal view of the left breast. No other significant abnormalities are identified. HPBI/SCREENING MAMM (CAD), BILAT IMPRESSION: Microcalcifications seen in the inferior aspect of the left axilla as described. The patient will be recalled for additional views including 90 degree lateral and exaggerated craniocaudad view of the left breast. Recall Side: Left Breast ASSESSMENT CATEGORY: BIRADS Category 0: Incomplete. Need additional imaging evaluation. A letter regarding these results will be sent to the patient by the facility within 30 days. Approximately 10% of breast cancers are not detected by mammography. A normal mammogram should not delay biopsy of a clinically suspicious abnormality. [id number] Electronically Signed: Audie Dave MD at 9:43 EST Tel [phone], Service support , CC: TONYA Wade; Bj Angel III, MD Regulatory Compliance Officer: Signed ALLERGIES ALLERGIES DATE TYPE / NAME / CODE REACTION SEVERITY SOURCE CODE 08/09/2018 Drug dicyclomine Other Unknown [place] Allergy/41 HCl/[id number][id number] 08/09/2018 Drug Penicillins/T93899 Rash Unknown Rajan Allergy/41 0476(RXNORM) Community 6947744([facility]) Repository 08/09/2018 Drug amoxicillin/O68476 Rash Unknown Rajan Allergy/41 3675(RXNORM) Community 9711482([facility]) Repository 07/16/2014 Drug escitalopram Other Unknown [place] Allergy/41 oxalate/[id number] Community 3239440( (RXNORM) [facility]) Repository 04/01/2009 DRUG DICYCLOMINE HCL INTOLERANCE Med [facility]/ [address] [place] [id number]( Repository OMED CT) 07/14/2005 DRUG AMOXICILLIN [place] [address] [place] 1753091( Repository OMED CT) 07/14/2005 Drug PENICILLINS [facility] Class/[address] [place] [address]([facility] Repository ED CT) ENCOUNTERS ENCOUNTERS ADMIT/DISCHARGE ACCOUNT ADMITTING ENCOUNTER LOCATION SOURCE NUMBER CLASS 08/29/2018/09/02/20 [id number] Ambulatory [address] Repository 08/15/2018/08/15/[id number] ing:SDCRoom: Repository [id number] 08/14/2018 [id number] [facility] ing:MTLAB Repository 07/31/2018/08/01/20 [id number] Ambulatory [address] Repository 07/25/2018/07/25/20 [id number] Ambulatory [address] [place] Repository 07/11/2018/07/12/20 [id number] Ambulatory [address] Repository 07/04/2018/07/05/20 [id number] Ambulatory [address] Repository 06/26/2018/06/27/20 [id number] Ambulatory [address] Repository 06/26/2018/06/27/20 [id number] Ambulatory [address] Repository 06/14/2018/06/14/20 [id number] Ambulatory [address] Repository 05/22/2018/05/22/20 [id number] Ambulatory [address] Repository 05/22/2018/05/24/20 [id number] Ambulatory [address] Repository 04/26/2018/04/30/20 [id number] Ambulatory [address] Repository 04/24/2018/04/25/20 [id number] Ambulatory [address] Repository 10/10/2017 [id number] [facility] ing:BI Repository 10/09/2017 [id number] [facility] ing:BI Repository PAYERS PAYERS ENCOUNTER GUARANTOR PAYER SUBSCRIBER SOURCE 08/15/2018 CLAIRE RICHMOND160 Primary Insurance:[facility] CLAIRE Tolentino [facility] DRAKEDOB: [facility] [id number] Hospital 149[address]Dlg: (330) Number: Repository [phone] () [id number] Date:4936-50-89PL [facility] [address], [place] [address]LN: CHECK WEBSITE 08/15/2018 Secondary NOT GIVENUNK Rajan Insurance:SELF PAY [facility] Number: Effective Repository Date:2018-07-17 08/14/2018 CLAIRE RICHMOND160 Primary Insurance:[facility] CLAIRE Tolentino W [facility] DRAKEDOB: [facility] [id number] [facility] [address]Cvn: (330) Number: Repository [phone] () [id number] Date:8132-65-20[address], [place] [address]DF: CHECK WEBSITE 08/14/2018 Secondary NOT GIVENUNK [place] Insurance:SELF PAY [facility] Number: Effective Repository Date:2018-08-14 10/10/2017 Rico Conklin Primary Insurance:[facility] CLAIRE Tolentino [id number] [facility] DRAKEDOB: [facility] [id number] [address]Mfb: Number: Repository [id number] (HP) Date:3667-87-27[address] [address], [place] [address]SS: CHECK WEBSITE 10/10/2017 Secondary NOT GIVENUNK [place] Insurance:SELF PAY [facility] Number: Effective Repository Date:2017-10-10 10/09/2017 Rico Martino Primary Insurance:[facility] CLAIRE Tolentino [address] [facility] DRAKEDOB: [facility] [id number] [address]Ypi: Number: Repository [id number] (HP) Date:8179-76-75[address] [address], [place] [address]GO: CHECK WEBSITE 10/09/2017 Secondary NOT GIVENUNK F[place] Insurance:SELF PAY [facility] Number: Effective Repository Date:2017-08-03
--- OUTSIDE RECORDS SUMMARY | 2018-10-09 20:22 | XMS RPT_ITS | Clinical Summary ---
:1975 Author Organization [facility], [facility] Address [address] [place] [address] Phone Care Team Providers Name Role Phone [place] CARBON CAPTURE POWER PLANT OPERATOR, Denice S Unavailable Conditions or Problems Problem Name Problem Code Onset Status Entry Provider Comment Standard Annotate Date Date Description Screening pap [id number] Active Denice S Screening for (SNOMED CT) 10/02 10/02 Sheri malignant [employer] OPERATOR neoplasm of cervix HTN 92926962 Active Denice S Hypertensive (Hypertension (SNOMED CT) 10/02 10/02 [place] disorder ) [employer] PL[employer] OPERATOR Oral 3451230274485 Active Denice S Surveillance contraceptive 08 (SNOMED 10/02 10/02 Sheri of oral pill CT) [employer]OWER PL[employer] OPERATOR contraception surveillance done Mammogram 75146435 Active Denice S Screening yearly (SNOMED CT) 10/02 10/02 Sheri mammography screening [employer] PLANT OPERATOR Routine 88639048 Active Denice S Gynecologic gynecological (SNOMED CT) 10/02 10/02 Sheri examination examination [employer]OWER PLANT OPERATOR Medications Medication Instructions Start Stop Generic Name [facility] Provider Date Date AVIANE 0.1-20 One tablet by / LEVONORGESTREL- [id number] Denice S MG-MCG TABS mouth daily 16 ETHINYL ESTRAD [place] [employer]OWER PLANT OPERATOR PREVIFEM 0.25-35 / NORGESTIMATE-ET 89272421774 Denice S MG-MCG TABS 16 H ESTRADIOL Sheri [employer] POWER PLANT OPERATOR PREVIFEM 0.25-35 / NORGESTIMATE-ET 30851123228 Denice S MG-MCG TABS 16 /16 H ESTRADIOL Sheri [employer]OWER PLANT OPERATOR LISINOPRIL 5 MG / LISINOPRIL 00868667094 Denice S TABS 16 [place] [employer]BON [employer]OWER PLANT OPERATOR LEXAPRO 20 MG / ESCITALOPRAM 75393601360 Denice S TABS 16 OXALATE [place] [employer] POWER PLANT OPERATOR MULTIVITAMIN 44872129567 Denice S WOMEN TABS 16 VITAMINS-MINERA Sheri [employer] CAPTURE POWER PLANT OPERATOR LS Medications Administered No information available. Allergies, Adverse Reactions, Alerts Allergy Name Reaction Description Start Date Severity Status Provider BENTYL Critical Active Denice S Sheri [employer]OWER PLANT OPERATOR AMOXICILLIN Critical Active Denice S Sheri [employer]OWER PLANT OPERATOR PENICILLIN V Critical Active Denice S [place] POTASSIUM [employer] POWER PLANT OPERATOR Results Date Name Value Unit Range Flag Description Office Visit: new annual MEDS REVIEW Done Documentation of current medications (procedure) MAMMOGRAM Normal Breast Mammogram screening PAP SMEAR Normal General categories [Interpretation] of Cervical or vaginal smear or scraping by Cyto stain ORALTOBACUSE Never Tobacco smoking status NHIS SMOK STATUS Current every day smoker Tobacco use [facility] Lab Report: Miscellaneous Lab Procedure ZZ-GE-unk . GE use only - for LinkLogic import when terms are not otherwise specified Plan of Care Type Date Detail Pending order Mammogram, Screening, both breasts Procedures Code Procedure Name Date Entry Date CPT-78521 Mammogram, Screening, both breasts Vital Signs Date Name Value Unit Description Height 61 [in_us] height E&M - 8302-2
--- OUTSIDE RECORDS SUMMARY | 2018-10-09 20:22 | XMS RPT_ITS | Clinical Summary ---
:1975 Author Organization [facility], [facility] Address [address] [place] [address] Phone Care Team Providers Name Role Phone [place] POTATO CHIP PACKAGING MACHINE OPERATOR, Denice S Unavailable Conditions or Problems Problem Name Problem Code Onset Status Entry Provider Comment Standard Annotate Date Date Description Screening pap 762872026 Active Denice S Screening for (SNOMED CT) 10/02 10/02 Sheri malignant POTATO CHIP PACKAGING MACHINE OPERATOR neoplasm of cervix HTN 74124496 Active Denice S Hypertensive (Hypertension (SNOMED CT) 10/02 10/02 [place] disorder ) POTATO CHIP PACKAGING MACHINE OPERATOR Oral 0589346878577 Active Denice S Surveillance contraceptive 08 (SNOMED 10/02 10/02 Sheri of oral pill CT) POTATO CHIP PACKAGING MACHINE OPERATOR contraception surveillance done Mammogram 76166249 Active Denice S Screening yearly (SNOMED CT) 10/02 10/02 Sheri mammography screening POTATO CHIP PACKAGING MACHINE OPERATOR Routine 81169465 Active Denice S Gynecologic gynecological (SNOMED CT) 10/02 10/02 Sheri examination examination POTATO CHIP PACKAGING MACHINE OPERATOR Medications Medication Instructions Start Stop Generic Name [facility] Provider Date Date AVIANE 0.1-20 One tablet by / LEVONORGESTREL- [id number] Denice S MG-MCG TABS mouth daily 16 ETHINYL ESTRAD [place] POTATO CHIP PACKAGING MACHINE OPERATOR PREVIFEM 0.25-35 / NORGESTIMATE-ET 43325239503 Denice S MG-MCG TABS 16 H ESTRADIOL Sheri POTATO CHIP PACKAGING MACHINE OPERATOR PREVIFEM 0.25-35 / NORGESTIMATE-ET [id number] Denice S MG-MCG TABS 16 /16 H ESTRADIOL Sheri POTATO CHIP PACKAGING MACHINE OPERATOR LISINOPRIL 5 MG / LISINOPRIL 03744252960 Denice S TABS 16 [place] POTATO CHIP PACKAGING MACHINE OPERATOR LEXAPRO 20 MG / ESCITALOPRAM 70811003574 Denice S TABS 16 OXALATE [place] POTATO CHIP PACKAGING MACHINE OPERATOR MULTIVITAMIN 39830083801 Denice S WOMEN TABS 16 VITAMINS-MINERA Sheri POTATO CHIP PACKAGING MACHINE OPERATOR LS Medications Administered No information available. Allergies, Adverse Reactions, Alerts Allergy Name Reaction Description Start Date Severity Status Provider BENTYL Critical Active Denice S Sheri POTATO CHIP PACKAGING MACHINE OPERATOR AMOXICILLIN Critical Active Denice S Sheri POTATO CHIP PACKAGING MACHINE OPERATOR PENICILLIN V Critical Active Denice S [place] POTASSIUM POTATO CHIP PACKAGING MACHINE OPERATOR Results Date Name Value Unit Range Flag Description Office Visit: new annual MEDS REVIEW Done Documentation of current medications (procedure) MAMMOGRAM Normal Breast Mammogram screening PAP SMEAR Normal General categories [Interpretation] of Cervical or vaginal smear or scraping by Cyto stain ORALTOBACUSE Never Tobacco smoking status NHIS SMOK STATUS Current every day smoker Tobacco use [facility] Lab Report: Miscellaneous Lab Procedure ZZ-GE-unk . GE use only - for LinkLogic import when terms are not otherwise specified Plan of Care Type Date Detail Pending order Mammogram, Screening, both breasts Procedures Code Procedure Name Date Entry Date CPT-85157 Mammogram, Screening, both breasts Vital Signs Date Name Value Unit Description Height 61 [in_us] height E&M - 8302-2
--- OUTSIDE RECORDS SUMMARY | 2018-10-09 20:22 | XMS RPT_ITS | Clinical Summary ---
:1975 Author Organization [facility], [facility] Address [address] [place] [address] Phone Care Team Providers Name Role Phone [place] POLICY SPECIALIST, Denice S Unavailable Conditions or Problems Problem Name Problem Code Onset Status Entry Provider Comment Standard Annotate Date Date Description Screening pap 262380399 Active Denice S Screening for (SNOMED CT) 10/02 10/02 Sheri malignant POLICY SPECIALIST neoplasm of cervix HTN 18668333 Active Denice S Hypertensive (Hypertension (SNOMED CT) 10/02 10/02 [place] disorder ) POLICY SPECIALIST Oral 8402990764471 Active Denice S Surveillance contraceptive 08 (SNOMED 10/02 10/02 Sheri of oral pill CT) POLICY SPECIALIST contraception surveillance done Mammogram 97688929 Active Denice S Screening yearly (SNOMED CT) 10/02 10/02 Sheri mammography screening POLICY SPECIALIST Routine 66555897 Active Denice S Gynecologic gynecological (SNOMED CT) 10/02 10/02 Sheri examination examination POLICY SPECIALIST Medications Medication Instructions Start Stop Generic Name [facility] Provider Date Date AVIANE 0.1-20 One tablet by / LEVONORGESTREL- [id number] Denice S MG-MCG TABS mouth daily 16 ETHINYL ESTRAD [place] POLICY SPECIALIST PREVIFEM 0.25-35 / NORGESTIMATE-ET 75241471683 Denice S MG-MCG TABS 16 H ESTRADIOL Sheri POLICY SPECIALIST PREVIFEM 0.25-35 / NORGESTIMATE-ET 64355529088 Denice S MG-MCG TABS 16 /16 H ESTRADIOL Sheri POLICY SPECIALIST LISINOPRIL 5 MG / LISINOPRIL 67671813303 Denice S TABS 16 [place] POLICY SPECIALIST LEXAPRO 20 MG / ESCITALOPRAM 13552572141 Denice S TABS 16 OXALATE [place] POLICY SPECIALIST MULTIVITAMIN 97405862408 Denice S WOMEN TABS 16 VITAMINS-MINERA Sheri POLICY SPECIALIST LS Medications Administered No information available. Allergies, Adverse Reactions, Alerts Allergy Name Reaction Description Start Date Severity Status Provider BENTYL Critical Active Denice S Sheri POLICY SPECIALIST AMOXICILLIN Critical Active Denice S Sheri POLICY SPECIALIST PENICILLIN V Critical Active Denice S [place] POTASSIUM POLICY SPECIALIST Results Date Name Value Unit Range Flag Description Office Visit: new annual MEDS REVIEW Done Documentation of current medications (procedure) MAMMOGRAM Normal Breast Mammogram screening PAP SMEAR Normal General categories [Interpretation] of Cervical or vaginal smear or scraping by Cyto stain ORALTOBACUSE Never Tobacco smoking status NHIS SMOK STATUS Current every day smoker Tobacco use [facility] Plan of Care Type Date Detail Appointment 02:50 PM Denice Wade POLICY SPECIALIST, [address], [place], [address], Pending order Mammogram, Screening, both breasts Procedures No information available. Vital Signs Date Name Value Unit Description Height 61 [in_us] height E&M - 8302-2
== END ==
PROVIDERS: Anesthesiology; Family Provider Family Medicine; PCP Family Medicine; Referring Provider Obstetrics & Gynecology; Visit Provider Obstetrics & Gynecology
DX: Z01.818 Encounter for other preprocedural examination (principal); I10 Essential (primary) hypertension; D64.9 Anemia, unspecified
CPT/HCPCS: 36415; 85027; 85610; 85730

== ENCOUNTER 2018-08-15 07:37 | Day surgery (SDC) | payer OTHER, SELFPAY ==
[2018-08-15] VITALS (11 sets, daily range): BP systolic 104–150; BP diastolic 63–93; PULSE 74–101; RESP 14–16; TEMP 36.3–37.2; O2SAT 97–100; BMI 23.0
--- NOTE | 2018-08-15 | HYST_PTH ---
PATIENT: CLAIRE THAKUR LOC: [facility] [place] U#:[id number] AGE/SX: 42/F ROOM: RE08/15/[address]: Dr. Keyonna Eaton, MDDOB: 1975 BED: DIS: 08/15/2018 SPEC #: [id number] RECD: 08/15/18 13:56 STATUS: YENNY EVELIN #: [id number] FRANKLIN: 08/15/18 00:[address]: Keyonna Eaton DEPT: SURGICAL PATHOLOGY RECD BY: Juvenal Fang ENTERED: 08/15/18 13:56 SP TYPE: HYSTERECT OTHR DR: Dr. Bj Angel III, MD Tissues: Uterus, NOS Procedures: Surgery Specimen Level V HEADER OPERATION: Laparoscopic total hysterectomy, bilateral salpingectomy PRE-OP DIAGNOSIS: Abnormal uterine bleeding, intramural and submucous leiomyoma of uterus, iron deficiency anemia due to chronic blood loss TISSUE SUBMITTED: Uterus, cervix, bilateral fallopian tubes MICROSCOPIC DIAGNOSIS Uterus, cervix, bilateral fallopian tubes, total hysterectomy and bilateral salpingectomy: Cervix - no pathologic diagnosis. Endometrium - consistent with exogenous hormone effect. Myometrium - intramural and submucosal leiomyomas (largest measuring 5.5 cm in diameter). Bilateral fallopian tubes - no pathologic diagnosis. SJ:melanie 08/16/18 MICROSCOPIC DESCRIPTION Slides are reviewed. GROSS DESCRIPTION Received in fixative is one container labeled with the patient's name and designated uterus, cervix, bilateral fallopian tubes. The specimen consists of a previously opened hysterectomy specimen consisting of uterus with cervix, attached left fallopian tube and detached right fallopian tube. The uterus with cervix weighs 273 gm and measures 12 x 8 x 7 cm. The serosal surface is haynes, glistening. The ectocervical mucosa is unremarkable. The endocervical canal measures 3.5 cm in length and the endocervical mucosa is unremarkable. The endometrial cavity is saucer-shape and measures 5 cm in length and up to 3 cm in width. Sections of the uterine wall reveal multiple intramural and submucosal nodular masses. One of the masses appears to be pedunculated and attached at the level of internal os. The largest mass is pedunculated nodular mass attached at internal os and measures up to 5.5 cm in diameter. Sections of these masses reveal haynes whorled cut surfaces without areas of hemorrhage, necrosis or cystic degeneration. The uninvolved uterine wall measures up to 2.5 cm in thickness. The right fallopian tube measures 5 cm in length and 0.5 cm in diameter. The fimbrial end is identified. The left fallopian tube is similar appearance to right and measures 5 cm in length and 0.6 cm in diameter. Sections of both fallopian tubes reveal unremarkable cut surfaces. Deputy Coroner Investigator sections are submitted in 11 cassettes as follows: 1 - anterior cervix, 2 - posterior cervix, 3 & 4 - anterior uterine wall, 5 & 6 - posterior uterine wall, 7 - smaller intramural and submucosal nodular masses, 8 - intermediate sized nodular mass, 9 - largest nodular mass, 10 - right fallopian tube, 11 - left fallopian tube. / SJ:melanie 08/15/18 TC:1 CPT: 42715
[2018-08-15 08:13] LABS: Hematocrit 37.8 % (37-47); Hemoglobin 11.3 g/dl (12.0-15.0); Mean Corp Hgb Conc 29.9 g/gl (32-36); Mean Corpuscular Hgb 25.9 pg (27.0-32.0); Mean Corpuscular Volume 86.5 fL (81-99); Mean Platelet Vol. 9.4 fl (6.2-12.0); Platelet Count 313 K/mm3 (150-450); RBC Distribution Width CV 21.1 % (11.6-14.6); RBC Distribution Width SD 66.7 fl (35.1-43.9); Red Blood Count 4.37 M/mm3 (4.2-5.4); White Blood Count 6.8 K/mm3 (4.4-11.0)
[2018-08-15 08:15] LABS: Scan Indicated on CBC? Y/N YES- FLAGS NOTED
[2018-08-15] MEDS: Acetaminophen 500 MG Tablet 1000 MG PO (08:17)
[2018-08-15] MEDS: Phenazopyridine 95 MG Tablet 190 MG PO (08:17)
[2018-08-15] MEDS: Celecoxib 200 MG Capsule 400 MG PO (08:17)
[2018-08-15] MEDS: Scopolamine 1mg/72hr Patch 1 PATCH TRANSDERM. (08:18)
[2018-08-15] MEDS: Gabapentin 600 MG Tablet PO (08:18)
[2018-08-15 08:23] LABS: Prothrombin Time (Protime)PT. 13.3 SECONDS (11.7-14.9)
[2018-08-15 08:31] LABS: Differential Comment SCANNED
[2018-08-15] MEDS: Enoxaparin 40 MG/0.4 ML Syringe SC (08:45)
[2018-08-15 08:50] LABS: Internal QC Validated? YES +Cl - CLEAR BKGD; Pregnancy, Urine Negative Negative
[2018-08-15 09:01] LABS: Bedside Glucose 92 mg/dL (70-110)
[2018-08-15] MEDS: Lubricating Jelly 60 GM Tube 30 GM TOPICAL (10:29)
[2018-08-15] MEDS: Lidocaine/D5W 2,000 MG/250 ML IV.SOLN 16.59 MG IV (11:02)
[2018-08-15] MEDS: Bupivacaine Mpf 0.5% 30 ML VIAL (11:14)
[2018-08-15] MEDS: Ondansetron 4 MG/2 ML Vial IV (11:50)
--- NOTE | 2018-08-15 12:17 | PCM.OPRPT ---
Report of Operation Date of Procedure: 08/15/18 Pre-Operative Diagnosis: fibroid uterus, AUB, Anemia Post-Operative Diagnosis: same Surgery/Procedure Performed:: TLH, Bilateral salpingectomy, Cystoscopy Description of Surgical Findings:: Enlarged Fibroid uterus, normal ovaries bilaterally. Cystoscopy performed good ureteral efflux noted, bladder intact. Uterus weight post op approx 282grams. IUD removed from uterus when Bivalved. online communications manager: Marleni Basilio online communications manager: Cris Hoyos Type of Anesthesia:: General Special Medications: marcaine .5% Specimen's removed: uterus, cervix, bilateral tubes Drains: Cm Estimated Blood Loss (mL): 60 Fluids Replaced: 800 Description of Procedure: Patient take to OR and prepped and draped in usual sterile fashion in dorsal lithotomy position with her arms tucked in a neurologically safe and neutral position. The uterus sounded to 11 cm. The Vcare uterine manipulator was sutured into place at 3/9:00 position and cm were placed. Attention was turned to the abdomen. All port sites were infiltrated with 0.5% marcaine before the incisions were made. The anterior abdominal wall was tented up with towel clamps and using a direct entry approach a 5 mm supraumbilical port was placed. Intraperitoneal placement was confirmed with the laparoscope and the pneumoperitoneum was created. The patient was placed in Trendelenburg and 5 mm right and left lower quadrant ports were placed under direct visualization. Air seal rapid insufflator was used. The bowel was swept away. Ovaries appeared normal. The mesosalpinx starting at fimbriated end were grasped, clamped, sealed and transected with the Ligasure. The round ligaments were divided. The anterior peritoneum was dissected down to create the bladder flap with blunt dissection and the LigaSure. The uterine arteries were isolated, clamped, sealed and cut. There was minimal back bleeding from the uterus. Straight bites on uterine arteries performed to drop them off the cuff. The Vcare was used as guide to create colpotomy using monopolar tip of ligasure. once specimen was removed attention was turned to vaginal portion. The specimen was handed off. Modified Stokes support stitch placed at uterosacral ligaments through peritoneum using PDS sutrure. The cuff was closed with interrupted 0-vicryl figure of 8 sutures. Cystoscopy was performed bilateral ureters were visualized with good efflux. bladder was intact. cm replaced and sponge stick placed in vagina. The pneumoperitoneum was recreated small oozing from right pedicled- sealed with ligasure and dionne placed- the cuff and pedicles were noted to be hemostatic. trochars removed. The skin incisions were closed with skin glue and 3-0 monocryl in the LLQ port site. The vaginal sweep was completed by me. Grafts/Implants Used: none Grafts/Implants Used: none - Complications none - Admit VTE Documentation VTE Present on Admission: Yes VTE Mechan Device Prophylaxis: SCD's VTE Pharm Prophylaxis ordered?: Yes
--- NOTE | 2018-08-15 12:31 | DCINST_ITS ---
Discharge Diet: No Restrictions Discharge Activity: Return to Normal Activity, May Not Drive - while taking narcotic pain medications., May Shower Return to work on:: 09/19/18 May shower in (days): 1 May resume sexual activity in: 6-8 weeks Lifting Restrictions: 20 Call your doctor if your incision/area has: Continuous Slow Oozing, Sudden Increased Bleeding, Increased Pain/ Swelling, Increased Redness, Foul Smelling Discharge Call your doctor if you observe: Fever of 101 or Higher, Inability to urinate, Inability to have a bowel movement, Using more than one pad per hour Cleanse incision/area with: - - do not pick off skin glue- you may shower let soap and water run over incision sites and dab dry. Allergies/Adverse Reactions: Allergies amoxicillin [Amoxicillin] Allergy (Verified 08/09/18 12:59) Rash dicyclomine HCl [From Bentyl] Allergy (Verified 08/09/18 12:59) Other Penicillins Allergy (Verified 08/09/18 12:59) Rash Medications to take at Discharge Multivitamins,Therapeutic [Multivitamin] 1 tablet PO DAILY 07/08/13 Escitalopram Oxalate [Lexapro] 20 mg PO DAILY 08/09/18 Ferrous Gluconate 324 mg PO DAILY 08/09/18 Lisinopril [Zestril] 5 mg PO DAILY 08/09/18 Naproxen Sodium [Aleve] 220 mg PO PRN PRN 08/09/18 Insulin Lispro [Humalog KwikPen] 0 unit SC Q4H PRN PRN insuln.pen 08/15/18 Orders to be completed after discharge: Type & Screen Time Frame: 08/10/18, Location: None Selected Primary Care Physician: Bj Angel III, MD [Primary Care Provider] - Test Results: Test results from this visit will be discussed in further detail at your follow- up appointment, if applicable. Please Follow Up With: Keyonna Eaton MD When: as scheduled in 2 weeks
[2018-08-15] MEDS: Lactated Ringers 1,000 ML 75 ML IV (15:06)
[2018-08-15] MEDS: Ibuprofen 600 MG Tablet PO (15:44)
[2018-08-15] MEDS: HYDROcodone Bitartrate/Apap 5/325 Tablet PO (16:19)
--- NOTE | 2018-08-15 17:17 | NURSING ---
pt up and ambulated to RR, able to void, no complaints with ambulating, denies dizziness or lightheadedness. MD in room to see pt, scripts written for patient, contacted retail pharmacy and they are to bring medications up to patients room in preparation for d/c.
--- OUTSIDE RECORDS SUMMARY | 2018-10-10 07:12 | XMS RPT_ITS ---
:1975 Author Organization OHIP Care Team Providers Name Role Phone SREEKANTH JENSEN Attending Unavailable KERI DORANTES) Referring Unavailable SREEKANTH JENSEN Attending Unavailable SREEKANTH JENSEN Attending Unavailable KERI DORANTES (YODIT) Referring Unavailable SREEKANTH JENSEN Attending Unavailable SREEKANTH JENSEN Referring Unavailable SREEKANTH JENSEN Attending Unavailable KERI DORANTES (YODIT) Referring Unavailable KERI DORANTES (YODIT) Attending Unavailable BJ ANGEL III Attending Unavailable KERI DORANTES (YODIT) Referring Unavailable KEIR DORANTES (YODIT) Referring Unavailable KERI DORANTES) Attending Unavailable KERI DORANTES) Referring Unavailable KERI DORANTES) Attending Unavailable Sheri, Denice Attending Unavailable Cebul III, Bj Primary Care Unavailable Sheri, Denice Attending Unavailable [place], Denice Referring Unavailable Cebul III, Bj Primary [...] Repository 08/29/2016 Active Essential (primary) NA Active [facility] hypertension / Clinic Main I10(ICD-10) [place] Repository 07/25/2018 Active Anemia, unspecified NA Active [facility] / D64.9(ICD-10) Clinic Main [place] Repository 05/22/2018 Active Excessive and NA Active [facility] frequent [facility] Main menstruation with [place] regular cycle / Repository N92.0(ICD-10) 10/10/2017 Unknown R92.8 - Other Sheri, Denice Active [facility] abnormal and Community inconclusive Hospital findings on Repository diagnostic imaging of breast / R92.8(ICD-10) 10/09/2017 Unknown Z12.31 - Encounter Denice Wade Active [facility] for screening Community mammogram for Hospital malignant neoplasm Repository of breast / Z12.31(ICD-10) PROCEDURES PROCEDURES No Procedure Records FoundRESULTS RESULTS CNOV Observed: 08/29/2018 Status: COMPLETED Source: [place] 8:20 AM [facility] REPOSITORY Office Visit (WOOB) CLAIRE RICHMOND ([id number]) 1975 F Date Time Provider Department 08/29/18 [...] History Recorded Letter Text Sreekanth Queen MD [facility] [address] [place], [place] [address] 08/29/2018 RE: Claire Richmond : 1975 To Whom It May Concern: Claire has been under my care and may return to work on 09/02/18 with a lifting restriction of [address] until she is 6 weeks post op on 09/26/2018. Sincerely, Sreekanth Queen MD Encounter Status:Closed by SREEKANTH QUEEN MD on 08/29/18 PROGRESS Observed: 08/29/2018 Status: COMPLETED Source: [place] 8:07 AM [facility] RE[facility]ITORY HNO ID: [id number] Author: Sreekanth Queen Service: (none) Author Type: [...] DISCHARGE INSTRUCTION Observed: 08/15/2018 Status: F Source: [place] 12:31 PM [facility] REPOSITORY [facility] Medical Records Department [address] [place] [address] Instructions for Home/Discharge Instructions 08/15/18 1230 MR#: [id number] Acct: [id number] Name: CLAIRE RICHMOND Rep #: [id number] : 1975 42 From: Sreekanth Queen MD PCP: Bj Angel III, MD Status: REG [facility] Discharge Diet: No Restrictions Discharge Activity: Return [...] 08/15/2018 Status: F Source: [place] 12:25 PM [facility] REPOSITORY [facility] Medical Records Department [address] [place] [address] Operative Report 08/15/18 1217 MR#: [id number] Acct: [id number] Name: CLAIRE RICHMOND Rep #: [id number] : 1975 42 From: Sreekanth Queen MD PCP: Jeanne LEE MD,Bj Status: REG SD[facility] Y Location: [place] [address] Report of Operation Date of Procedure: 08/15/18 Pre-Operative Diagnosis: fibroid uterus, AUB, Anemia Post-Operative Diagnosis: same Surgery/Procedure Performed:: TLH, Bilateral salpingectomy, Cystoscopy Description of Surgical Findings:: Enlarged Fibroid uterus, normal ovaries bilaterally. Cystoscopy performed good ureteral efflux noted, bladder intact. Uterus weight post op approx 282grams. IUD removed from uterus when Bivalved. telesales team leader: Marleni Basilio telesales team leader: Cris Hoyos Type of Anesthesia:: General Special [...] Signed ,URINE Collected: 08/15/2018 Status: F Source: [place] 8:43 AM [facility] REPOSITORY Order Comment: Reason for Laboratory Test PRE OP TYPE CODE TESTS RESULT OUT OF REFERENCE UNITS RANGE LAB L400.8000 Negative Normal HCGUQUAL Negative Result Comment: Very dilute urine specimens, as indicated by a low specific gravity, may not contain medical service representative levels of hCG. If is still suspected, a first morning urine specimen should be collected 48 hours later and tested. Performed By: #### L400.7600 #### [facility] [address] [place], [address] BEDSIDE GLUCOSE Collected: 08/15/2018 Status: F Source: [place] 8:09 AM [facility] REPOSITORY TYPE CODE TESTS RESULT OUT OF RANGE REFERENCE UNITS LAB L501.080 70-110 mg/dL Normal BEDSIDE GLU 92 Result Comment: MANAGEMENT OF PATIENT CARE PER NURSING PROTOCOL Performed By: #### L501.080 #### [facility] Point of Care [address] [place], [place] [address] CBC-COMPLETE BLOOD CNT Collected: 08/15/2018 Status: F Source: [place] NO DIFF 8:04 AM [facility] REPOSITORY TYPE CODE TESTS RESULT OUT OF [...] 9.4 Performed By: #### L100.0500, L100.4500 #### [facility] [address] [place], [place], [id number] DIFFERENTIAL COMMENT Collected: 08/15/2018 Status: F Source: [place] 8:04 AM [facility] REPOSITORY TYPE CODE TESTS RESULT OUT OF RANGE REFERENCE UNITS LAB L100.4500 Normal SMEAR COMMENT SCANNED Result Comment: 1+ ANISOCYTOSIS RARE ELLIPTOCYTES Performed By: #### L100.0500, L100.4500 #### [facility] [address] [place], [place], [address] PROTHROMBIN TIME W/INR Collected: 08/15/2018 Status: F Source: [place] 8:04 AM [facility] REPOSITORY TYPE CODE TESTS RESULT OUT OF RANGE REFERENCE UNITS LAB L300.4150 11.7-14.9 SECONDS Normal PROTIME 13.3 LAB L300.4200 Normal INR 1.0 Performed By: #### L300.3900, L300.4310 #### [facility] [address] [place], [address] PARTIAL THROMBOPLAST Collected: 08/15/2018 Status: F Source: [place] TIME 8:04 AM [facility] REPOSITORY TYPE CODE TESTS RESULT OUT OF RANGE REFERENCE UNITS LAB L300.4310 24.1-36.2 Seconds Normal PTT 26.0 Performed By: #### L300.3900, L300.4310 #### [facility] [address] [place], [address] TYPE AND SCREEN Collected: 08/15/2018 Status: F Source: [place] 8:04 AM [facility] REPOSITORY Order Comment: Reason for Type AND Screen/Red Cells: SURGERY TYPE CODE TESTS RESULT OUT OF RANGE REFERENCE UNITS LAB B10.0800 A Normal BLOOD TYPE GEL POSITIVE LAB B100.4000 Normal Antibody NEGATIVE Screen Performed By: #### B101.7450 #### [facility] [address] [place], [address] HYSTERECTOMY SPECIMEN Observed: 08/15/2018 Status: F Source: [place] 12:00 AM [facility] REPOSITORY Patient: CLAIRE RICHMOND : 1975 (42/F) Acct Num: [id number] Phys: Angelito BILLINGS,Sreekanth Unit Num: [id number] Loc: [facility] Specimen: [id number] Received: 08/15/18 - 8406 Spec Type: HYSTERECT TISSUES 1 TISSUES: Uterus, [...] both fallopian tubes reveal unremarkable cut surfaces. Gas Desulfurizer sections are submitted in 11 cassettes as [...] fallopian tube. / [place]:melanie 08/15/18 TC:1 CPT: 00986 HEADER OPERATION: Laparoscopic total hysterectomy, bilateral salpingectomy [...] on file> Performed By: #### PHYST #### [facility] [address] [place], [place] [address] [place], [address] CBC-COMPLETE BLOOD CNT Collected: 08/14/2018 Status: F Source: [place] NO DIFF 11:47 AM [facility] REPOSITORY Order Comment: Reason for Laboratory Test [...] MPV 11.3 Performed By: #### L100.0500 #### [facility] [address] [facility] [place], [place], [address] PROTHROMBIN TIME W/INR Collected: 08/14/2018 Status: F Source: [place] 11:47 AM [facility] REPOSITORY Order Comment: Reason for Laboratory Test PRE OP TYPE CODE TESTS RESULT OUT OF RANGE REFERENCE UNITS LAB L300.4150 11.7-14.9 SECONDS Normal PROTIME 13.2 LAB L300.4200 Normal INR 1.0 Performed By: #### L300.3900, L300.4310 #### [facility] [address] [place], [place], [address] PARTIAL THROMBOPLAST Collected: 08/14/2018 Status: F Source: [place] TIME 11:47 AM [facility] REPOSITORY Order Comment: Reason for Laboratory Test PRE OP TYPE CODE TESTS RESULT OUT OF RANGE REFERENCE UNITS LAB L300.4310 24.1-36.2 Seconds Normal PTT 26.9 Performed By: #### L300.3900, L300.4310 #### [facility] [address] 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 Hopefully the upcoming surgery will lead to correction of the anemia. Bj Agnel III, MD, FAAFP CBC Collected: 07/25/2018 Status: F Source: [place] 11:50 AM [facility] REPOSITORY TYPE CODE TESTS RESULT OUT OF [...] <0.01 Performed By: #### CBC, CMP #### [facility] [address] [place] [address] COMP METABOLIC PANEL Collected: 07/25/2018 Status: F Source: [place] 11:50 AM [facility] REPOSITORY TYPE CODE TESTS RESULT OUT OF REFERENCE UNITS RANGE LAB TP 6.3-8.0 g/dL Protein, Total 7.0 LAB ALB 3.9-4.9 g/dL Albumin 4.2 LAB CA 8.5-10.2 mg/dL Calcium, Total 9.0 LAB TBIL 0.2-1.3 mg/dL Bilirubin, Total 0.2 LAB ALKP 34-123 U/L Alkaline Phosphatase 53 LAB AST 13-35 U/L AST 19 LAB GLU 74-99 mg/dL Glucose 78 Result Comment: The [place] Diabetes Association (ADA) provides guidance for cutoff [...] Standards of Medical Care in Diabetes 2016, [place] Diabetes Association. Diabetes Care. 2016.39(Suppl 1). LAB [...] GFR. Performed By: #### CBC, CMP #### [facility] [address] [place], [place] [address] SURGICAL PATHOLOGY Observed: 07/11/2018 Status: F Source: [place] 4:36 PM [facility] REPOSITORY Specimen originated from [facility] Specimen #: [id number] Submitting Physician: SREEKANTH QUEEN MD FINAL DIAGNOSIS [...] in one cassette. Gross examination performed at [facility], [address] [place] [address] 07/12/2018 9:58:45 PM Date of Report: 07/15/2018 Date of Procedure: 07/11/2018 Date of Receipt: 07/12/2018 Submitted by: SREEKANTH QUEEN MD Location: [facility] Diagnostic interpretation performed at [facility], [address] [place] [address]. CNOV Observed: 07/11/2018 Status: COMPLETED Source: [place] 4:00 PM [facility] REPOSITORY Office Visit (WOOB) CLAIRE RICHMOND ([id number]) 1975 F Date Time Provider Department 07/11/18 4:00 PM SREKEANTH JENSEN During your visit today, we recorded the following information about you: Blood pressure Weight 120/60 54.9 kg Sreekanth Eaton MD 07/11/2018 4:51 PM Signed Management Instructor offered: Patient declines. Claire Richmond is a 42 year old female who presents for concerns regarding heavy bleeding. Pt has h/o heavy menses, fibroid uterus and anemia. 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 NEGATIVE HPV, NEGATIVE PAP 8. Progesterone taper ordered by SWAT TEAM MEMBER 9. Previous Ultrasounds reviewed IUD seen in [...] contact the office. Referring Provider: SREEKANTH JENSEN [[id number]] Allergies As of Date: 07/11/2018 Noted Allergy [...] blood loss [D50.0] Order(s):HCG QUAL UR B/O [3281221] Order #: [id number] SURGICAL PATHOLOGY [[id number]] Order #: [id number] Prescriptions as of 07/11/2018 Sig: NORETHINDRONE ACETATE [...] 07/11/18 PROGRESS Observed: 07/11/2018 Status: COMPLETED Source: [place] 3:46 PM [facility] REPOSITORY O ID: [id number] Author: Sreekanth Queen Service: (none) Author Type: Physician Type: Progress Notes Filed: 07/11/2018 4:51 PM Note Text: Management Instructor offered: Patient declines. Claire Richmond is a 42 year old female who presents for concerns regarding heavy bleeding. Pt has h/o heavy menses, fibroid uterus and anemia. 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 NEGATIVE HPV, NEGATIVE PAP 8. Progesterone taper ordered by SWAT TEAM MEMBER 9. Previous Ultrasounds reviewed IUD seen in [...] RICHAR Navarro Observed: 07/11/2018 Status: COMPLETED Source: [place] 12:00 AM [facility] REPOSITORY Telephone (WOOB) CLAIRE RICHMOND ([id number]) 1975 F Date Time Provider Department 07/11/18 KERI DORANTES (BEADER) WOOB During your visit today, we recorded [...] hysterectomy. Please call prescription for Aygestin to [facility] retail pharmacy.I spoke with Claire per phone. Keri Dorantes APRN.YODIT Barba RN 07/11/2018 1:46 PM Signed Patient called and appointment given with Dr. Queen for today at 4 pm. Medication called in to [facility] retail pharmacy. Kena Barba RN Allergies [...] 07/11/18 CNOV Observed: 06/26/2018 Status: COMPLETED Source: [place] 2:45 PM [facility] REPOSITORY Office Visit (WOOB) CLAIRE RICHMOND ([id number]) 1975 F Date Time Provider Department 06/26/18 2:45 PM KERI DORANTES (BEADER) WOOB During your visit today, we recorded [...] of results. Follow-up as needed. Keri Dorantes APRN.BEADER Armand Stern Ma 06/26/2018 3:10 PM Signed Would you like a residential builder present for your visit today? No Armand Stern Ma Referring Provider: SELF [200] Allergies As of Date: 06/26/2018 Noted Allergy Reaction BENTYL (DICYCLOMINE HCL) 04/01/2009 5 - Intolerance Comments: Causes pt. headaches AMOXICILLIN 07/14/2005 PENICILLINS 07/14/2005 Date Reviewed: 06/26/2018 Reviewed by: Keri (Mine Engineering Supervisor) Jose E - Fully Assessed Primary Visit Diagnosis:Intrauterine contraceptive device threads lost, initial encounter [T83.32XA] Other Visit Diagnosis:Encounter for routine checking of intrauterine contraceptive device (IUD) [Z30.431] Order(s):PELVIC US [facility] [[id number]] Order #: [id number]: 1 Prescriptions as of 06/26/2018 Sig: ESCITALOPRAM [...] 06/26/18 PROGRESS Observed: 06/26/2018 Status: COMPLETED Source: [place] 2:35 PM [facility] REPOSITORY HNO ID: [id number] Author: Armand Stern Ma Service: (none) Author Type: (none) Type: Progress Notes Filed: 06/26/2018 3:10 PM Note Text: Would you like a residential builder present for your visit today? No Armand Stern Ma PROGRESS Observed: 06/26/2018 Status: COMPLETED Source: [place] 2:33 PM [facility] REPOSITORY HNO ID: [id number] Author: Keri Dorantes Service: (none) Author Type: [...] APRN.CNP PROGRESS Observed: 06/26/2018 Status: COMPLETED Source: [place] 8:08 AM [facility] REPOSITORY HNO ID: [id number] Author: Bj Angel III Service: (none) Author [...] Prescriptions on File Prior to Visit: folic acid/multivit,iron,computer forensic examiner (CENTRUM ORAL) Take by mouth once [...] as needed recommend quitting smoking Follow-up with SUBGRADE ROLLER OPERATOR as appointed ROSA Dumont MD, III MD CNOV Observed: 06/26/2018 Status: COMPLETED Source: [place] 8:00 AM [facility] REPOSITORY Office [facility] CLAIRE RICHMOND ([id number]) 1975 F Date Time Provider Department 06/26/18 [...] Prescriptions on File Prior to Visit: folic acid/multivit,iron,computer forensic examiner (CENTRUM ORAL) Take by mouth once [...] as needed recommend quitting smoking Follow-up with SUBGRADE ROLLER OPERATOR as appointed ROSA Dumont MD, III MD [...] 07/14/2005 Date Reviewed: 06/26/2018 Reviewed by: Candi ([facility]) ANUPAMA Miller - Fully Assessed Reason for [...] 5 COMP METABOLIC PANEL [SQCMP] Order #: [id number] FUTURE Prescriptions as of 06/26/2018 Sig: ESCITALOPRAM [...] 06/26/18 CBC Collected: 06/14/2018 Status: F Source: [place] 11:34 AM [facility] REPOSITORY TYPE [...] nRBC <0.01 Performed By: #### CBC #### [facility] [address] [place], [place] [address] CBC Collected: 05/22/2018 Status: F Source: [place] 3:55 PM [facility] REPOSITORY TYPE CODE TESTS RESULT OUT OF [...] <0.01 Performed By: #### CBC, TSH #### [facility] [address] [place], [place] [address] TSH Collected: 05/22/2018 Status: F Source: [place] 3:55 PM [facility] REPOSITORY TYPE CODE TESTS RESULT OUT OF [...] Clinical Practice Guideline. J Clin Endocrinol Metab, 2012:97:6815-5757. 2. Enrrique MESSINA. Overview of thyroid disease in . UpToDate. 2016. Accessed on March 03, 2016. Performed By: #### CBC, TSH #### [facility] [address] [place], [place] [address] CNOV Observed: 05/22/2018 Status: COMPLETED Source: [place] 3:30 PM [facility] REPOSITORY Office Visit (WOOB) CLAIRE RICHMOND ([id number]) 1975 F Date Time Provider Department 05/22/18 [...] IUD source: office provided IUD lot #: [id number] Exp date: 10/2020 UNIVERSAL PROTOCOL / SAFETY [...] 3:41 PM Signed Would you like a residential builder present for your visit today? No Armand Stern Ma 05/22/2018 3:42 PM Signed Addended by: ARMAND STERN MA on: 05/22/2018 03:42 PM Modules accepted: Orders, Marge Dorantes APRN.CNP 05/22/2018 4:04 PM Signed Addended by: KERI DORANTES on: 05/22/2018 04:04 PM Modules accepted: Orders Referring Provider: KERI DORANTES (OYDIT) [[id number]] Allergies As of Date: 05/22/2018 Noted Allergy Reaction BENTYL (DICYCLOMINE HCL) 04/01/2009 5 - Intolerance Comments: Causes pt. headaches AMOXICILLIN 07/14/2005 PENICILLINS 07/14/2005 Date Reviewed: 05/22/2018 Reviewed by: Keri [facility] For ChildrenJennifer Dorantes - Fully Assessed Reason for Visit: Insertion Of IUD [291] Primary Visit Diagnosis:Encounter for insertion of mirena IUD [Z30.430] Other Visit Diagnosis:Menorrhagia with regular cycle [N92.0] Order(s):HCG QUAL UR B/O [[id number]] Order #: [id number] INSERT INTRAUTERINE DEVICE [[id number]] Order #: [id number] CBC [SQCBC] Order #: [id number] FUTURE TSH BLD [SQTSH] Order #: [id number] FUTURE [] levonorgestrel 20 mcg/24 hr (5 [...] 05/22/18 PROGRESS Observed: 05/22/2018 Status: COMPLETED Source: [place] 3:01 PM [facility] REPOSITORY HNO ID: [id number] Author: Armand Stern Ma Service: (none) Author Type: (none) Type: Progress Notes Filed: 05/22/2018 3:41 PM Note Text: Would you like a residential builder present for your visit today? No Armand Stern Ma PROGRESS Observed: 05/22/2018 Status: COMPLETED Source: [place] 2:52 PM [facility] REPOSITORY HNO ID: [id number] Author: Keri Dorantes Service: (none) Author Type: [...] IUD source: office provided IUD lot #: [id number] Exp date: 10/2020 UNIVERSAL PROTOCOL / SAFETY [...] APRN.CNP PROGRESS Observed: 04/24/2018 Status: COMPLETED Source: [place] 10:40 AM [facility] REPOSITORY HNO ID: [id number] Author: Keri Dorantes Service: (none) Author Type: Nurse Practitioner Type: Progress Notes Filed: 04/24/2018 11:57 AM Note Text: Management Instructor offered: Patient declines. Claire Richmond is a [...] Occupational History Occupation Employer Comment [employer]* [employer] * Social History Main Topics Smoking status: Current Every Day Smoker Packs/day: 1.00 Years: 2.00 Types: Cigarettes Last attempt to quit: 07/03/2013 Smokeless tobacco: Never Used Alcohol use: Yes Comment: Rarely Drug use: No Sexual activity: Yes Partners with: Male control/protection: Pill Current Outpatient Prescriptions: folic acid/multivit,iron,computer forensic examiner (CENTRUM ORAL) Take by mouth once [...] external genitalia normal, normal Bartholin's glands, urethra, [place]'s glands, no vulvar lesions, no cervical lesions, [...] CALDERON Serrano Observed: 04/24/2018 Status: COMPLETED Source: [place] 10:30 AM [facility] REPOSITORY Office Visit (WOOB) CLAIRE RICHMOND ([id number]) 1975 F Date Time Provider Department 04/24/18 10:30 AM KERI DORANTES ([facility]) WOOB During your visit today, we recorded the following information about you: Blood pressure Weight Last Period 130/74 54.9 kg 04/22/18 Keri Dorantes APRN.CNP 04/24/2018 11:57 AM Signed Management Instructor offered: Patient declines. Claire Richmond is a [...] Occupational History Occupation Employer Comment [employer]* [employer] * Social History Main Topics Smoking status: Current Every Day Smoker Packs/day: 1.00 Years: 2.00 Types: Cigarettes Last attempt to quit: 07/03/2013 Smokeless tobacco: Never Used Alcohol use: Yes Comment: Rarely Drug use: No Sexual activity: Yes Partners with: Male control/protection: Pill Current Outpatient Prescriptions: folic acid/multivit,iron,computer forensic examiner (CENTRUM ORAL) Take by mouth once [...] external genitalia normal, normal Bartholin's glands, urethra, [place]'s glands, no vulvar lesions, no cervical lesions, [...] needed. Will need annual visit. Keri Dorantes APRN.BEADER Referring Provider: SELF [200] Allergies As of Date: 04/24/2018 Noted Allergy Reaction BENTYL (DICYCLOMINE HCL) 04/01/2009 5 - Intolerance Comments: Causes pt. headaches AMOXICILLIN 07/14/2005 PENICILLINS 07/14/2005 Date Reviewed: 04/24/2018 Reviewed by: Keri (Mine Engineering Supervisor) Jose E - Fully Assessed Reason for Visit: RLQ Pain [Other] Primary Visit Diagnosis:Pelvic pain in female [R10.2] Other Visit Diagnoses:Menorrhagia with regular cycle [N92.0] General counseling and advice for contraceptive management [Z30.09] Order(s):PELVIC US [facility] [3664943] Order #: [id number]: 1 INSERT INTRAUTERINE DEVICE [2264089] Order #: [id number] miSOPROStol (CYTOTEC) 200 mcg tabletInsert 2 tables [...] Status: F Source: [place] 2:24 PM [facility] [facility] [place] REPOSITORY [facility] Imaging Services [address] [place] [address] [place] [address] DIAG MAMM W/CAD, UNILAT MR#: [id number] Acct: [id number] Name: CLAIRE RICHMOND Rep #: [id number] : 1975 F 41 From: Audie Dave MD PCP: Bj Angel III, MD Status: REG CLI Study: DIAG MAMM W/CAD, UNILAT Date of Exam: 10/10/17 Exam# [id number] Ordering Dr: Denice Wade [employer]-C MAMMOGRAPHY - UNILATERAL DIAGNOSTIC: LEFT BREAST REASON [...] recommended. No other significant abnormalities are identified. [facility]/DIAG MAMM W/CAD, UNILAT IMPRESSION: Stable unilateral diagnostic [...] Audie Dave MD at 15:45 EST Tel [phone], Service support , CC: TONYA Wade; Bj Angel III, MD Residential Builder: Signed SCREENING MAMM (CAD), Observed: 10/09/2017 Status: F Source: RAJAN BILAT 8:28 AM [facility] [place] REPOSITORY [facility] Imaging Services [address] [place] [address] SCREENING MAMM (CAD), BILAT MR#: [id number] Acct: [id number] Name: CLAIRE RICHMOND Rep #: [id number] : 1975 F 41 From: Audie Dave MD PCP: Bj Angel III, MD Status: REG CLI Study: SCREENING MAMM (CAD), BILAT Date of Exam: 10/09/17 Exam# [id number] Ordering Dr: Denice Wade [employer]-Shellie MAMMOGRAPHY - BILATERAL SCREENING REASON FOR EXAM: [...] delay biopsy of a clinically suspicious abnormality. [id number] Electronically Signed: Audie Dave MD at 9:43 EST Tel [phone], Service support , CC: TONYA Wade; Bj Angel III, MD Residential Builder: Signed ALLERGIES ALLERGIES DATE TYPE / NAME / CODE REACTION SEVERITY SOURCE CODE 08/09/2018 Drug dicyclomine Other Unknown [place] Allergy/41 HCl/[id number](RXN [id number] 08/09/2018 Drug Penicillins/W56261 Rash Unknown [place] Allergy/41 0476(RXNORM) Community 9520616([facility]) Repository 08/09/2018 Drug amoxicillin/X98331 Rash Unknown [place] Allergy/41 3675(RXNORM) Community 7777112([facility]) Repository 07/16/2014 Drug escitalopram Other Unknown [place] Allergy/41 oxalate/[id number] Community 5973555( (RXNORM) [facility]) Repository 04/01/2009 DRUG DICYCLOMINE HCL INTOLERANCE Med [facility]/ [address] [place] 8133139( Repository OMED CT) 07/14/2005 DRUG AMOXICILLIN [place] [address] [address] [place] 0755442( Repository OMED CT) 07/14/2005 Drug PENICILLINS [facility] Class/[address] [place] [address]([facility] Repository ED CT) ENCOUNTERS ENCOUNTERS ADMIT/DISCHARGE ACCOUNT ADMITTING ENCOUNTER LOCATION SOURCE NUMBER CLASS 08/29/2018/09/02/20 [id number] Ambulatory [address] Repository 08/15/2018/08/15/[id number] ing:SDCRoom: Repository [id number] 08/14/2018 [id number] [facility] ing:MTLAB Repository 07/31/2018/08/01/20 [id number] Ambulatory [address] Repository 07/25/2018/07/25/20 [id number] Ambulatory [address] [place] Repository 07/11/2018/07/12/20 [id number] Ambulatory [address] Repository 07/04/2018/07/05/20 [id number] Ambulatory [address] Repository 06/26/2018/06/27/20 [id number] Ambulatory [address] Repository 06/26/2018/06/27/20 [id number] Ambulatory [address] Repository 06/14/2018/06/14/20 [id number] Ambulatory [address] Repository 05/22/2018/05/22/20 [id number] Ambulatory [address] Repository 05/22/2018/05/24/20 [id number] Ambulatory [address] Repository 04/26/2018/04/30/20 [id number] Ambulatory [address] Repository 04/24/2018/04/25/20 [id number] Ambulatory [address] Repository 10/10/2017 [id number] [facility] ing:BI Repository 10/09/2017 [id number] [facility] ing:BI Repository PAYERS PAYERS ENCOUNTER GUARANTOR PAYER SUBSCRIBER SOURCE 08/15/2018 CLAIRE RICHMOND160 Primary Insurance[facility] DRAKEDOB: [facility] [id number] Hospital [address]Esn: (330) Number: Repository [phone] () [id number] Date:5327-17-99YS [facility] [address], [place] [address]RU: CHECK WEBSITE 08/15/2018 Secondary NOT GIVENUNK Rajan Insurance:SELF PAY [facility] Number: Effective Repository Date:2018-07-17 08/14/2018 CLAIRE RICHMOND160 Primary Insurance:[facility] CLAIRE [facility] DRAKEDOB: [facility] [id number] [facility] [address]Tit: [phone]) Number: Repository [phone] () [id number] Date:8347-10-55OM [address] [address], [place] [address]ID: CHECK WEBSITE 08/14/2018 Secondary NOT GIVENUNK [place] Insurance:SELF PAY [facility] Number: Effective Repository Date:2018-08-14 10/10/2017 Rico Conklin Primary Insurance:[facility] CLAIRE [facility] [id number] [facility] DRAKEDOB: [id number] [address]Abm: Number: Repository [id number] (HP) Date:7948-44-39CW [address] [address], [place] [address]PL: CHECK WEBSITE 10/10/2017 Secondary NOT GIVENUNK [place] Insurance:SELF PAY [facility] Number: Effective Repository Date:2017-10-10 10/09/2017 Rico Martino Primary Insurance:[facility] CLAIRE [facility]ino [id number] [facility] DRAKEDOB: [facility] [id number] [address]Fqs: Number: Repository [id number] (HP) Date:4023-82-75[address] [address], [place] [address]CY: CHECK WEBSITE 10/09/2017 Secondary NOT GIVENUNK [place] Insurance:SELF PAY [facility] Number: Effective Repository Date:2017-08-03
== END 2018-08-15 18:06 | disposition home or self-care (01) ==
LOC: SDC 07:38 → AC 07:39 → MS2 07:55
PROVIDERS: Anesthesiology; Family Provider Family Medicine; PCP Family Medicine; Referring Provider Obstetrics & Gynecology; Visit Provider Obstetrics & Gynecology
PROC: 0UT94ZZ Resection of Uterus, Percutaneous Endoscopic Approach (ICD-10-PCS; CPT 52000; principal; 2018-08-15 10:05)
DX: D25.0 Submucous leiomyoma of uterus (principal); D25.1 Intramural leiomyoma of uterus; D50.0 Iron deficiency anemia secondary to blood loss (chronic); I10 Essential (primary) hypertension; F17.210 Nicotine dependence, cigarettes, uncomplicated; Z79.891 Long term (current) use of opiate analgesic; Z79.899 Other long term (current) drug therapy; F41.9 Anxiety disorder, unspecified
CPT/HCPCS: 52000; 58554; 36415; 81025; 82962; 85027; 85610; 85730; 86850; 86900; 88307; J7050; J7120; J2405

== ENCOUNTER → 2018-11-05 07:03 | Outpatient (CLI) | payer OTHER, SELFPAY ==
[2018-08-15 15:01] VITALS: BMI 23.0
--- NOTE | 2018-11-05 07:09 | BI_ITS ---
MAMMOGRAPHY - BILATERAL SCREENING REASON FOR EXAM: Female, 42 years old. Routine annual screening examination. PERTINENT HISTORY: Non-contributory. TECHNIQUE: Digital bilateral breast estefani (3D mammographic acquisition) in the CC and MLO projections. 2-D mediolateral oblique (MLO) and craniocaudad (CC) views of both breasts were obtained. CAD: Full Field Digital Mammography with Computer Added Detection was performed. COMPARISON: Comparison is made with prior study dated 2017 and October 09, 2017. FINDINGS: Breast Composition: The breasts are heterogeneously dense, which may obscure small masses. There are no dominant masses or suspicious calcifications. No other significant abnormalities are identified. There has been no significant change since the prior study. BI/SCREENING MAMM (CAD), BILAT IMPRESSION: Stable bilateral screening mammogram. Yearly follow-up mammogram recommended. (A) ASSESSMENT CATEGORY: BIRADS Category 1: Negative. A letter regarding these results will be sent to the patient by the facility within 30 days. Approximately 10% of breast cancers are not detected by mammography. A normal mammogram should not delay biopsy of a clinically suspicious abnormality. [id number] Electronically Signed: Audie Dave MD at 9:17 EST , Service support ,
== END ==
PROVIDERS: Family Provider Family Medicine; PCP Family Medicine; Referring Provider Obstetrics & Gynecology; Visit Provider Obstetrics & Gynecology
DX: Z12.31 Encounter for screening mammogram for malignant neoplasm of breast (principal)
CPT/HCPCS: 77063; 77067

== ENCOUNTER → 2019-08-12 16:01 | Outpatient (CLI) | payer OTHER, SELFPAY ==
[2019-05-21 12:43] VITALS: BMI 23.0
[2019-08-12 17:11] LABS: Mean Corp Hgb Conc 33.3 g/dL (32-36); Mean Corpuscular Hgb 31.6 pg (27.0-32.0); Mean Corpuscular Volume 94.7 fL (81-99); Mean Platelet Vol. 10.5 fl (6.2-12.0); Platelet Count 235 K/mm3 (150-450); RBC Distribution Width CV 11.9 % (11.6-14.6); RBC Distribution Width SD 41.6 fl (35.1-43.9); Red Blood Count 4.12 M/mm3 (4.2-5.4)
[2019-08-12 17:15] LABS: ALB/GLOB Ratio 1.1 RATIO (0.9-2.4); AST(SGOT) 16 U/L (15-37); Alanine Aminotransfer ALT/SGPT 16 U/L (13-56); Albumin, Serum 3.9 g/dL (3.2-5.0); Alkaline Phosphatase 67 U/L (45-117); Anion Gap 5 (5-15); BUN 19 mg/dL (7-18); BUN/Creat Ratio 20.2 RATIO (10-20); Calcium,Total 8.7 mg/dL (8.5-10.1); Chloride 107 mmol/L (98-107); Creatinine, Serum 0.94 mg/dL (0.55-1.02); EST Glomerular Filtration Rate 69 mL/min (>60); Est Glom Filt Rate - Afr Amer 83 mL/min (>60); Globulin 3.4 g/dL (2.2-4.2); Glucose 106 mg/dL (74-106); Potassium 4.1 mmol/L (3.5-5.1); Protein, Total 7.3 g/dL (6.4-8.2); Sodium Level 142 mmol/L (136-145)
== END ==
PROVIDERS: Family Provider Family Medicine; PCP Family Medicine; Referring Provider Family Medicine; Visit Provider Family Medicine
DX: I10 Essential (primary) hypertension (principal); D64.9 Anemia, unspecified
CPT/HCPCS: 36415; 80053; 85027

== ENCOUNTER → 2019-12-08 | Outpatient (CLI) | payer OTHER, SELFPAY ==
[2019-05-21 12:43] VITALS: BMI 23.0
--- NOTE | 2019-12-08 15:37 | BI_ITS ---
MAMMOGRAPHY - BILATERAL SCREENING REASON FOR EXAM: Female, 44 years old. Routine annual screening examination. PERTINENT HISTORY: Non-contributory. TECHNIQUE: Digital bilateral breast wes (3D mammographic acquisition) in the CC and MLO projections. 2-D mediolateral oblique (MLO) and craniocaudad (CC) views of both breasts were obtained. CAD: Full Field Digital Mammography with Computer Added Detection was performed. COMPARISON: Comparison is made with prior examination dated November 05, 2018 and October 10, 2017. FINDINGS: Breast Composition: The breasts are heterogeneously dense, which may obscure small masses. There are no dominant masses or suspicious calcifications. No other significant abnormalities are identified. There has been no significant change since the prior study. BI/SCREEN MAMM (CAD) W/WES BILAT IMPRESSION: Stable bilateral screening mammogram. Yearly follow-up mammogram recommended. (A) ASSESSMENT CATEGORY: BIRADS Category 1: Negative. A letter regarding these results will be sent to the patient by the facility within 30 days. Approximately 10% of breast cancers are not detected by mammography. A normal mammogram should not delay biopsy of a clinically suspicious abnormality. [id number] Electronically Signed: Audie Dave, at 14:00 EDT , Service support ,
== END | disposition home or self-care (01) ==
LOC: OPBI 15:35
PROVIDERS: PCP Family Medicine; Referring Provider Obstetrics & Gynecology; Visit Provider Obstetrics & Gynecology
DX: Z12.31 Encounter for screening mammogram for malignant neoplasm of breast (principal)
CPT/HCPCS: 77063; 77067

== ENCOUNTER → 2020-06-07 | Outpatient (CLI) | payer OTHER, SELFPAY ==
[2019-05-21 12:43] VITALS: BMI 23.0
[2020-06-07 09:12] LABS: Hematocrit 43.3 % (37-47); Hemoglobin 14.3 g/dL (12.0-15.0); Mean Corpuscular Hgb 31.9 pg (27.0-32.0); Mean Corpuscular Volume 96.7 fL (81-99); Mean Platelet Vol. 9.8 fl (6.2-12.0); Platelet Count 253 K/mm3 (150-450); RBC Distribution Width CV 12.1 % (11.6-14.6); RBC Distribution Width SD 43.1 fl (35.1-43.9); Red Blood Count 4.48 M/mm3 (4.2-5.4); White Blood Count 8.6 K/mm3 (4.4-11.0)
[2020-06-07 09:42] LABS: AST(SGOT) 21 U/L (15-37); Alanine Aminotransfer ALT/SGPT 28 U/L (13-56); Albumin, Serum 3.7 g/dL (3.2-5.0); Alkaline Phosphatase 77 U/L (45-117); Anion Gap 4 (5-15); BUN 25 mg/dL (7-18); Calcium,Total 8.4 mg/dL (8.5-10.1); Chloride 110 mmol/L (98-107); Creatinine, Serum 0.86 mg/dL (0.55-1.02); EST Glomerular Filtration Rate 75 mL/min (>60); Est Glom Filt Rate - Afr Amer 91 mL/min (>60); Globulin 3.6 g/dL (2.2-4.2); Glucose 75 mg/dL (74-106); Protein, Total 7.3 g/dL (6.4-8.2); Sodium Level 142 mmol/L (136-145)
== END | disposition home or self-care (01) ==
LOC: LAB 08:53
PROVIDERS: PCP Family Medicine; Referring Provider Family Medicine; Visit Provider Family Medicine
DX: I10 Essential (primary) hypertension (principal); D64.9 Anemia, unspecified
CPT/HCPCS: 36415; 80053; 85027

== ENCOUNTER → 2020-12-13 15:33 | Outpatient (CLI) | payer OTHER, SELFPAY ==
[2019-05-21 12:43] VITALS: BMI 23.0
--- NOTE | 2020-12-13 15:36 | BI_ITS ---
MAMMOGRAPHY - BILATERAL SCREENING REASON FOR EXAM: Female, 45 years old. Routine annual screening examination. PERTINENT HISTORY: Non-contributory. TECHNIQUE: Digital bilateral breast wes (3D mammographic acquisition) in the CC and MLO projections. 2-D mediolateral oblique (MLO) and craniocaudad (CC) views of both breasts were obtained. CAD: Full Field Digital Mammography with Computer Added Detection was performed. COMPARISON: Comparison is made with prior study from 12/08/2019 and 11/05/2018. FINDINGS: Breast Composition: The breasts are heterogeneously dense, which may obscure small masses. There are no dominant masses or suspicious calcifications. Stable benign-appearing bilateral axillary lymph nodes. No other significant abnormalities are identified. There has been no significant change since the prior study. BI/SCRN MAMM (CAD)W/WES BILAT IMPRESSION: Stable bilateral screening mammogram. Yearly follow-up mammogram recommended. (A) ASSESSMENT CATEGORY: BIRADS Category 2: Benign. A letter regarding these results will be sent to the patient by the facility within 30 days. Approximately 10% of breast cancers are not detected by mammography. A normal mammogram should not delay biopsy of a clinically suspicious abnormality. [id number] Electronically Signed: Audie Dave MD at 8:07 EDT , Service support ,
== END ==
PROVIDERS: PCP Family Medicine; Referring Provider Obstetrics & Gynecology; Visit Provider Obstetrics & Gynecology
DX: Z12.31 Encounter for screening mammogram for malignant neoplasm of breast (principal)
CPT/HCPCS: 77063; 77067

== ENCOUNTER 2021-01-27 07:19 | Emergency (ER) | payer OTHER, SELFPAY ==
[2021-01-24 08:57] VITALS: BMI 23.0
[2021-01-27 07:20] VITALS: BP 137/89; PULSE 74; RESP 16; TEMP 36.1; O2SAT 98; BMI 24.3
--- NOTE | 2021-01-27 07:32 | EDS_ITS ---
HPI History of Present Illness Chief Complaint: Diarrhea Informant: patient Narrative Narrative: 45-year-old female presenting with diarrhea. She states this has been ongoing for the past 2 weeks. She has nausea with no vomiting. She complains of intermittent abdominal cramping. She denies urinary complaints. She was seen at urgent care and advised to take Imodium. She states that she has been taking this and it has been helping. She states that if she does not take the Imodium she has diarrhea. She denies blood in her stool. No recent antibiotics. No fever. No other complaints. Prior similar symptoms: Yes Recent Illness/Hospitalization: No [facility] Medical History (Updated 01/27/21 @ 08:[address] Heidi Anderson MD) Anemia HTN (hypertension) Home Medications multivitamin with folic acid 1 tab PO DAILY 07/08/13 [History Last Taken Unknown] lisinopril 5 mg PO DAILY 08/09/18 [History Last Taken 08/15/18 07:00] ibuprofen 600 mg PO 4X/DAY PRN PRN #30 tab 08/15/18 [Rx Last Taken Unknown] albuterol sulfate 90 mcg/actuation aerosol inhaler 2 puff INHALATION Q6H PRN #6.7 g 05/21/19 [Rx Last Taken Unknown] escitalopram oxalate 20 mg tablet 20 mg PO DAILY 05/21/19 [History Last Taken Unknown] guaifenesin 1,200 mg tablet, extended release 12 hr 1,200 mg PO BID 05/21/19 [History Last Taken Unknown] methylprednisolone 4 mg tablets in a dose pack See Rx Instructions PO PER PKG DIR #21 tab 05/21/19 [Rx Last Taken Unknown] Allergy/AdvReac Type Severity Reaction Status Date / Time amoxicillin [Amoxicillin] Allergy Rash Verified 01/27/21 07:20 dicyclomine HCl [From Bentyl] Allergy Other Verified 01/27/21 07:20 Penicillins Allergy Rash Verified 01/27/21 07:20 Family History (Updated 05/21/19 @ 12:43 by Elvi Goode) Other Diabetes Hypercholesterolemia Hypertension Surgical History History of carpal tunnel release History of partial hysterectomy Hx of section Social History (Updated 05/21/19 @ 16:57 by Barbara Durant ELECTRICIAN THIRD, ELECTRICIAN THIRD-C) Smoking Status: Current every day smoker alcohol intake: never ROS ROS ED Constitutional Constitutional ED: Denies fever(s) ENT ENT ED: Denies rhinorrhea or sore throat Cardiovascular Cardiovascular: Denies chest pain Respiratory/Chest Respiratory/Chest: Denies dyspnea Gastrointestinal Gastrointestinal: Reports abdominal pain, diarrhea and nausea; Denies vomiting Genitourinary Genitourinary ED: Denies dysuria Musculoskeletal Musculoskeletal: Denies myalgias Integumentary Denies rash Neurologic Neurologic: Denies headache(s) Endocrine Endocrinology: Denies polyuria EXAM Physical Exam Const Vital Signs: 01/27/21 07:20 01/27/21 08:07 01/27/21 08:50 Temperature 96.9 F L 98.7 F Temperature Source Temporal Pulse Rate 74 63 62 Respiratory Rate 16 16 16 Blood Pressure 137/89 H 129/87 H 128/79 H Blood Pressure Mean 105 101 Pulse Ox 98 100 98 Oxygen Delivery Method Room Air Room Air Positive well nourished and well developed General Appearance ED: well developed HEENT Reports normocephalic and head/scalp atraumatic Eyes PERRL and EOMs intact bilaterally Neck supple General: Negative for tenderness Chest Wall inspection of chest normal Resp normal respiratory effort and clear to auscultation bilaterally Cardio regular rate and regular rhythm GI non-distended GI Narrative: Mild diffuse tenderness with no rebound or guarding Palpation: soft and tender; Negative for guarding or rebound tenderness present no CVA tenderness Extremity normal to inspection Neuro oriented x3 Sensorium / Orientation: alert Psych mental status grossly normal Skin no rashes or lesions noted MDM MDM MDM Narrative Medical decision making narrative: Patient given IV fluids, Zofran. Patient is feeling improved on reevaluation. Her abdomen is soft and nontender with no guarding or rebound. She was given potassium oral replacement. She is able to tolerate p.o. in the emergency department. Stool studies were sent. She will follow-up with her primary care physician. Advised return to ED if worsening complaints. Lab Data Attestation: I reviewed the patient's lab results. Labs: Laboratory Results - last 24 hr 01/27/21 01/27/21 07:45 07:45 WBC 6.1 RBC 4.27 Hgb 13.5 Hct 40.4 MCV 94.6 MCH 31.6 MCHC 33.4 RDW Std Deviation 41.2 RDW Coeff of Fly 11.9 Plt Count 225 MPV 9.8 Immature Gran % (Auto) 0.200 Neut % (Auto) 59.6 Lymph % (Auto) 23.0 Wheeler % (Auto) 10.3 H Eos % (Auto) 6.2 H Baso % (Auto) 0.7 Absolute Neuts (auto) 3.7 Absolute Lymphs (auto) 1.41 Nucleated RBC % 0 Sodium 142 Potassium 3.3 L Chloride 109 H Carbon Dioxide 29.0 Anion Gap 4 L BUN 22 H Creatinine 0.83 Estim Creat Clear Calc 63.91 Est GFR (MDRD) Af Amer 95 Est GFR (MDRD) Non-Af 78 BUN/Creatinine Ratio 26.4 H Glucose 85 Calcium 8.4 L Total Bilirubin 0.50 AST 17 ALT 15 Alkaline Phosphatase 58 Total Protein 6.9 Albumin 3.4 Globulin 3.5 Albumin/Globulin Ratio 1.0 Lipase 92 Discharge Plan Triage Chief Complaint: Diarrhea ED Provider: Heidi Anderson Dx/Rx/DC Orders Clinical Impression: Diarrhea Instructions: ED Diarrhea, Unknown Cause Prescriptions: No Action guaifenesin [Mucinex] 1,200 mg tablet extended release 12hr 1,200 mg PO BID RF: 0 methylprednisolone [Medrol (Keith)] 4 mg tablets,dose pack See Rx Instructions PO PER PKG DIR Qty: 21 RF: 0 albuterol sulfate 90 mcg/actuation HFA aerosol inhaler 2 puff INHALATION Q6H PRN (Reason: shortness of breath or wheezing) Qty: 6.7 RF: 0 multivitamin with folic acid 1 TABLET tablet 1 tab PO DAILY RF: 0 lisinopril 5 MG tablet 5 mg PO DAILY RF: 0 ibuprofen 600 MG tablet 600 mg PO 4X/DAY PRN PRN (Reason: Pain) Qty: 30 RF: 0 escitalopram oxalate 20 mg tablet 20 mg PO DAILY RF: 0 Primary Care Provider: Brissa Davey Referrals: Brissa Davey DO [Primary Care Provider] - Disposition Disposition: Home, self care Discharge Date/Time: 01/27/21 08:56
[2021-01-27] MEDS: 0.9% Normal Saline 1,000 ML 1000 ML IV (07:45)
[2021-01-27] MEDS: Ondansetron 4 MG/2 ML Vial IV (07:45)
[2021-01-27 08:01] LABS: Absolute Lymphocyte Count 1.41 X10^3/uL (0.83-4.51); Absolute Neutrophil Count 3.7 X10^3/uL (2.0-7.7); Basophil# 0.04 X10^3/uL; Basophil% 0.7 % (0-1); Eosinophil# 0.38 X10^3/uL; Eosinophils% 6.2 % (0-5); Hematocrit 40.4 % (37-47); Hemoglobin 13.5 g/dL (12.0-15.0); Lymphocyte # 1.41 X10^3/ul (0.83-4.51); Mean Corp Hgb Conc 33.4 g/dL (32-36); Mean Corpuscular Hgb 31.6 pg (27.0-32.0); Mean Corpuscular Volume 94.6 fL (81-99); Mean Platelet Vol. 9.8 fl (6.2-12.0); Monocyte# 0.63 X10^3/uL; Monocyte% 10.3 % (0-10); NRBC Flagged by Analyzer 0 % (0-5); Neutrophil # 3.66 X10^3/uL (2.7-7.7); Neutrophil % 59.6 % (47-70); Platelet Count 225 K/mm3 (150-450); RBC Distribution Width CV 11.9 % (11.6-14.6); RBC Distribution Width SD 41.2 fl (35.1-43.9); Red Blood Count 4.27 M/mm3 (4.2-5.4); White Blood Count 6.1 K/mm3 (4.4-11.0)
[2021-01-27 08:07] VITALS: BP 129/87; PULSE 63; RESP 16; O2SAT 100
[2021-01-27 08:12] LABS: AST(SGOT) 17 U/L (15-37); Alanine Aminotransfer ALT/SGPT 15 U/L (13-56); Albumin, Serum 3.4 g/dL (3.2-5.0); Alkaline Phosphatase 58 U/L (45-117); Anion Gap 4 (5-15); BUN 22 mg/dL (7-18); BUN/Creat Ratio 26.4 RATIO (10-20); Calcium,Total 8.4 mg/dL (8.5-10.1); Chloride 109 mmol/L (98-107); Creatinine, Serum 0.83 mg/dL (0.55-1.02); EST Glomerular Filtration Rate 78 mL/min (>60); Est Glom Filt Rate - Afr Amer 95 mL/min (>60); Estimated Creatinine Clearance 63.91 ml/min; Globulin 3.5 g/dL (2.2-4.2); Glucose 85 mg/dL (74-106); Lipase 92 U/L (73-393); Potassium 3.3 mmol/L (3.5-5.1); Protein, Total 6.9 g/dL (6.4-8.2); Sodium Level 142 mmol/L (136-145)
[2021-01-27] MEDS: Potassium Chloride Oral Tablet 20 MEQ PO (08:48)
[2021-01-27 08:50] VITALS: BP 128/79; PULSE 62; RESP 16; TEMP 37.1; O2SAT 98
== END 2021-01-27 08:56 | disposition home or self-care (01) ==
PROVIDERS: Emergency Provider Emergency Medicine; PCP Family Medicine
DX: R19.7 Diarrhea, unspecified (principal); I10 Essential (primary) hypertension; Z79.899 Other long term (current) drug therapy; F17.200 Nicotine dependence, unspecified, uncomplicated
CPT/HCPCS: 80053; 83690; 85025; 87493; 87506; 96361; 96374; 99284; J7030; A4216; J2405

== ENCOUNTER → 2021-03-17 14:53 | Outpatient (CLI) | payer OTHER, SELFPAY ==
[2021-03-17 15:15] LABS: Hematocrit 39.9 % (37-47); Hemoglobin 13.4 g/dL (12.0-15.0); Mean Corp Hgb Conc 33.6 g/dL (32-36); Mean Corpuscular Hgb 31.5 pg (27.0-32.0); Mean Corpuscular Volume 93.7 fL (81-99); Mean Platelet Vol. 9.8 fl (6.2-12.0); Platelet Count 249 K/mm3 (150-450); RBC Distribution Width CV 11.9 % (11.6-14.6); RBC Distribution Width SD 40.9 fl (35.1-43.9); Red Blood Count 4.26 M/mm3 (4.2-5.4)
[2021-03-17 15:53] LABS: ALB/GLOB Ratio 1.1 RATIO (0.9-2.4); AST(SGOT) 12 U/L (15-37); Alanine Aminotransfer ALT/SGPT 16 U/L (13-56); Albumin, Serum 3.6 g/dL (3.2-5.0); Alkaline Phosphatase 65 U/L (45-117); Anion Gap 8 (5-15); BUN 28 mg/dL (7-18); BUN/Creat Ratio 28.7 RATIO (10-20); Calcium,Total 8.7 mg/dL (8.5-10.1); Chloride 106 mmol/L (98-107); Creatinine, Serum 0.98 mg/dL (0.55-1.02); EST Glomerular Filtration Rate 65 mL/min (>60); Est Glom Filt Rate - Afr Amer 79 mL/min (>60); Globulin 3.4 g/dL (2.2-4.2); Glucose 110 mg/dL (74-106); Potassium 3.8 mmol/L (3.5-5.1); Sodium Level 143 mmol/L (136-145); Thyroid Stim Hormone (TSH) 1.96 uIU/mL (0.358-3.74)
== END ==
PROVIDERS: PCP Family Medicine; Visit Provider Family Medicine
DX: K52.9 Noninfective gastroenteritis and colitis, unspecified (principal); I10 Essential (primary) hypertension; K21.9 Gastro-esophageal reflux disease without esophagitis; F41.9 Anxiety disorder, unspecified
CPT/HCPCS: 36415; 80053; 83516; 84443; 85027

== ENCOUNTER → 2021-03-18 | Outpatient (CLI) | payer OTHER, SELFPAY | END | disposition home or self-care (01) | PROVIDERS: PCP Family Medicine; Referring Provider Family Medicine; Visit Provider Family Medicine | DX: K52.9 Noninfective gastroenteritis and colitis, unspecified (principal); K21.9 Gastro-esophageal reflux disease without esophagitis | CPT/HCPCS: 83630; 87177; 87209; 87493; 87506 ==

== ENCOUNTER → 2021-05-18 06:44 | Outpatient (CLI) | payer OTHER, SELFPAY ==
[2021-05-18 07:47] LABS: AST(SGOT) 17 U/L (15-37); Alanine Aminotransfer ALT/SGPT 17 U/L (13-56); Albumin, Serum 3.7 g/dL (3.2-5.0); Alkaline Phosphatase 70 U/L (45-117); Anion Gap 5 (5-15); BUN 17 mg/dL (7-18); Calcium,Total 8.4 mg/dL (8.5-10.1); Chloride 108 mmol/L (98-107); Cholesterol 216 mg/dL (200); Creatinine, Serum 0.81 mg/dL (0.55-1.02); EST Glomerular Filtration Rate 81 mL/min (>60); Est Glom Filt Rate - Afr Amer 98 mL/min (>60); Globulin 3.6 g/dL (2.2-4.2); Glucose 88 mg/dL (74-106); High Density Lipoprotein 52 mg/dL; Potassium 3.9 mmol/L (3.5-5.1); Protein, Total 7.3 g/dL (6.4-8.2); Sodium Level 142 mmol/L (136-145); Triglycerides 112 mg/dL; Very Low Density Lipoprotein 22 mg/dL (5-40)
== END ==
LOC: LAB.FUTURE 06:45 → LAB 06:47
PROVIDERS: PCP Family Medicine; Referring Provider Family Medicine; Visit Provider Family Medicine
DX: Z00.00 Encounter for general adult medical examination without abnormal findings (principal); K21.9 Gastro-esophageal reflux disease without esophagitis; I10 Essential (primary) hypertension; Z13.6 Encounter for screening for cardiovascular disorders
CPT/HCPCS: 36415; 80053; 80061; 84443

== ENCOUNTER → 2021-07-22 09:02 | Outpatient (CLI) | payer OTHER, SELFPAY ==
[2021-07-22 10:14] LABS: Thyroid Stim Hormone (TSH) 1.54 uIU/mL (0.358-3.74)
== END ==
PROVIDERS: PCP Family Medicine; Referring Provider Family Medicine; Visit Provider Family Medicine
DX: R94.6 Abnormal results of thyroid function studies (principal)
CPT/HCPCS: 36415; 84443

== ENCOUNTER 2021-09-28 09:03 | Outpatient (CLI) | payer OTHER, SELFPAY ==
[2021-09-28 11:18] LABS: AST(SGOT) 11 U/L (15-37); Alanine Aminotransfer ALT/SGPT 17 U/L (13-56); Albumin, Serum 3.7 g/dL (3.2-5.0); Alkaline Phosphatase 61 U/L (45-117); Anion Gap 8 (5-15); BUN 20 mg/dL (7-18); BUN/Creat Ratio 25.4 RATIO (10-20); Calcium,Total 8.8 mg/dL (8.5-10.1); Chloride 107 mmol/L (98-107); Creatinine, Serum 0.79 mg/dL (0.55-1.02); EST Glomerular Filtration Rate 83 mL/min (>60); Est Glom Filt Rate - Afr Amer 101 mL/min (>60); Globulin 3.6 g/dL (2.2-4.2); Glucose 98 mg/dL (74-106); Potassium 3.6 mmol/L (3.5-5.1); Protein, Total 7.3 g/dL (6.4-8.2); Sodium Level 142 mmol/L (136-145)
[2021-09-29 16:09] LABS: Endomysial Antibody IgA Negative (Negative)
[2021-09-29 17:06] LABS: Immunoglobulin A 251 mg/dL (87-352); t-Transglutaminase IgA <2 U/mL (0-3)
== END 2021-09-28 23:59 | disposition short-term general hospital (02) ==
PROVIDERS: PCP Family Medicine; Referring Provider Internal Medicine Gastroenterology; Visit Provider Internal Medicine Gastroenterology
DX: I10 Essential (primary) hypertension (principal); F41.9 Anxiety disorder, unspecified; R76.8 Other specified abnormal immunological findings in serum
CPT/HCPCS: 36415; 80053; 82784; 83516; 86255

== ENCOUNTER 2021-11-10 07:12 | Outpatient (CLI) | payer OTHER, SELFPAY ==
[2021-11-10 08:09] LABS: AST(SGOT) 14 U/L (15-37); Alanine Aminotransfer ALT/SGPT 13 U/L (13-56); Albumin, Serum 3.6 g/dL (3.2-5.0); Alkaline Phosphatase 63 U/L (45-117); Anion Gap 1 (5-15); BUN 23 mg/dL (7-18); BUN/Creat Ratio 26.3 RATIO (10-20); Calcium,Total 8.3 mg/dL (8.5-10.1); Chloride 108 mmol/L (98-107); Creatinine, Serum 0.88 mg/dL (0.55-1.02); EST Glomerular Filtration Rate 74 mL/min (>60); Est Glom Filt Rate - Afr Amer 89 mL/min (>60); Globulin 3.6 g/dL (2.2-4.2); Glucose 91 mg/dL (74-106); Magnesium 2.4 mg/dL (1.6-2.6); Potassium 3.9 mmol/L (3.5-5.1); Protein, Total 7.2 g/dL (6.4-8.2); Sodium Level 139 mmol/L (136-145); Thyroid Stim Hormone (TSH) 3.06 uIU/mL (0.358-3.74)
[2021-11-10 11:24] LABS: Vitamin D,25 Hydroxy 29.3 ng/mL
== END 2021-11-10 23:59 | disposition home or self-care (01) ==
LOC: LAB 07:14
PROVIDERS: PCP Family Medicine; Referring Provider Family Medicine; Visit Provider Family Medicine
DX: I10 Essential (primary) hypertension (principal); R79.89 Other specified abnormal findings of blood chemistry; R53.83 Other fatigue
CPT/HCPCS: 36415; 80053; 82306; 83735; 84443

== ENCOUNTER → 2022-01-09 | Outpatient (CLI) | payer OTHER, SELFPAY ==
[2022-01-09 12:11] LABS: Anion Gap 3 (5-15); BUN 22 mg/dL (7-18); BUN/Creat Ratio 28.4 RATIO (10-20); Calcium,Total 8.8 mg/dL (8.5-10.1); Chloride 104 mmol/L (98-107); Creatinine, Serum 0.78 mg/dL (0.55-1.02); EST Glomerular Filtration Rate 85 mL/min (>60); Est Glom Filt Rate - Afr Amer 103 mL/min (>60); Glucose 98 mg/dL (74-106); Potassium 3.8 mmol/L (3.5-5.1); Sodium Level 136 mmol/L (136-145)
== END | disposition home or self-care (01) ==
PROVIDERS: PCP Family Medicine; Visit Provider Family Medicine
DX: I10 Essential (primary) hypertension (principal)
CPT/HCPCS: 36415; 80048

== ENCOUNTER → 2022-01-10 | Outpatient (CLI) | payer OTHER, SELFPAY ==
--- NOTE | 2022-01-10 15:37 | BI_ITS ---
MAMMOGRAPHY - BILATERAL SCREENING REASON FOR EXAM: Female, 46 years old. Routine annual screening examination. PERTINENT HISTORY: Aunt with breast cancer. TECHNIQUE: Digital bilateral breast wes (3D mammographic acquisition) in the CC and MLO projections. 2-D mediolateral oblique (MLO) and craniocaudad (CC) views of both breasts were obtained. CAD: Full Field Digital Mammography with Computer Added Detection was performed. COMPARISON: Comparison is made with prior study dated 12/13/2020 and 12/08/2019. FINDINGS: Breast Composition: The breasts are heterogeneously dense, which may obscure small masses. There are no dominant masses or suspicious calcifications. No other significant abnormalities are identified. There has been no significant change since the prior study. BI/SCRN MAMM (CAD)W/WES BILAT IMPRESSION: Stable bilateral screening mammogram. Yearly follow-up mammogram recommended. (A) ASSESSMENT CATEGORY: BIRADS Category 1: Negative. A letter regarding these results will be sent to the patient by the facility within 30 days. Approximately 10% of breast cancers are not detected by mammography. A normal mammogram should not delay biopsy of a clinically suspicious abnormality. [id number] Electronically Signed: Audie Dave MD at 11:44 EDT ,
== END | disposition home or self-care (01) ==
LOC: OPBI 15:34
PROVIDERS: PCP Family Medicine; Referring Provider Obstetrics & Gynecology; Visit Provider Obstetrics & Gynecology
DX: Z12.31 Encounter for screening mammogram for malignant neoplasm of breast (principal)
CPT/HCPCS: 77063; 77067

== ENCOUNTER 2022-03-27 08:38 | Day surgery (SDC) | payer OTHER, SELFPAY ==
[2022-03-27 08:53] VITALS: BP 111/72; PULSE 94; RESP 16; TEMP 36.1; O2SAT 97; BMI 23.2
[2022-03-27] MEDS: Lactated Ringers 1,000 ML 30 ML IV (09:06)
--- NOTE | 2022-03-27 09:09 | PCM.HP.BLA ---
History and Physical Date of Admission: 03/27/22 Chief Complaint: Diarrhea, GERD, Gas and Bloating. Details: CLAIRE THAKUR, is a 45 F who presents to the office today for Last visit 08/23/21 for evaluation of C.Difficile colitis and IBS. Symptoms last visit included continued infrequent loose stools that may be trigger related. She tested positive for active C.Difficile infection 7.11.07 she completed her course of vancomycin and with probiotics has been having positive results. C. Difficile colitis ? Continue taking probiotic BID with food to avoid loose stool. IBS ? intermittent cramping with mild urgency secondary to diet. Complete food diary. Reports resolution of diarrhea unless she has consumed alcohol the night before and resolves within a day. ROS Const Constitutional: No anorexia, fatigue, fever(s), weight change or sleep problems Eyes Eyes: No change in vision ENT ENT: No abnormal hearing, difficulty swallowing, mouth lesions, tongue swelling or throat swelling Resp Respiratory: No cough or shortness of breath Cardio Cardiology: No chest pain at rest, chest pain with exertion, shortness of breath or dyspnea on exertion Gastro GI: No difficulty swallowing Genitourinary-Female: No difficulty urinating or burning urination Musc Musculoskeletal: No joint pain, joint swelling, muscle weakness or decreased muscle mass Skin Skin: No hair loss in leg, yellowing of the eye, itchy eyes, rash, skin ulcer or skin swelling Neuro Neurology: No abnormal hearing, abnormal movements, confusion, unsteady gait/balance or memory loss Psych Psychiatric: No anxiety, No confusion and No memory loss Endo Endocrine: No fatigue or weight change Aller/Imm Allergy/Immunologic: No itchy eyes, throat swelling or tongue swelling Mitchel/Lymp Hematologic/Lymphatic: No easy bleeding, easy bruising or enlarged lymph nodes Exam Const General: cooperative and comfortable Nutritional Appearance: average body habitus and well nourished [facility] Head: normal to inspection Ears: hearing grossly normal bilaterally Nose: external nose normal Face and sinus: normal facial exam Mouth: oral mucosae normal Throat: posterior oropharynx normal Eyes General: appearance normal, both eyes and all related structures Neck Neck: normal visual inspection Chest Chest palpation & inspection: normal inspection of the chest and normal palpation of entire chest wall Resp Effort & Inspection: normal respiratory effort Auscultation: Bilateral: Clear to Auscultation Cardio Palpation: normal PMI Rate: regular rate Rhythm: regular rhythm GI Inspection: normal to inspection Auscultation: normal bowel sounds Percussion: normal to percussion Palpation: no hepatosplenomegaly Skin General: no rashes or lesions noted Neuro General: patient alert Extrem General: normal to inspection Psych Affect: normal affect Quality Reporting Tobacco Screening ([facility] 138) Smoking Status: Current every day smoker Assessment and Plan Assessment and Plan (1) Elevated anti-tissue transglutaminase (tTG) IgA level: ?Status:?Acute ? ? ? Orders:?Orders: ? Celiac Disease Profile Today ?Plan - Dr. Banks Friend, DO: Her transglutaminase test is very sensitive for celiac disease. We will recheck it after she does not have CT of the C this was a false positive. For now she is not having any problems with diarrhea on daily basis. (2) C. difficile colitis: ?Status:?Acute ?Plan - Dr. Banks Friend, DO: She will continue with probiotics twice a day for the next 3 months. All questions and concerns were answered regarding the natural history for her recent C. difficile infection and prophylaxis to prevent another reinfection. (3) Irritable bowel syndrome with diarrhea: ?Status:?Acute Coding Level of Care Code Off vis,est,level 3 Diagnoses Elevated anti-tissue transglutaminase (tTG) IgA level? R76.8 C. difficile colitis? A04.72 Irritable bowel syndrome with diarrhea? K58.0 I have re-examined the patient. There are no clinical changes since date of exam.
--- NOTE | 2022-03-27 09:45 | EGD_PTH ---
PATIENT: CLAIRE THAKUR LOC: EN U#:[id number] AGE/SX: 46/F ROOM: RE03/27/[address]: Dr. Darren Jenkins DO : 1975 BED: DIS: 03/27/2022 SPEC #: [id number] RECD: 03/27/22 13:56 STATUS: YENNY REQ #: [id number] FRANKLIN: 03/27/22 09:[address]: Darren Jenkins DEPT: SURGICAL PATHOLOGY RECD BY: Renea Jenkins ENTERED: 03/28/22 08:02 SP TYPE: EGD BIOPSY OT DR: Dr. Brissa Davey DO Tissues: A - Ileum, NOS B - COLON BIOPSY Procedures: Trichrome (control) Special Stain Group II Surgery Specimen Level IV HEADER OPERATION: Colonoscopy (MAC) PRE-OP DIAGNOSIS: Elevated anti-tissue transglutaminase (tTG) IgA TISSUE SUBMITTED: A ? Terminal ileum, B ? Random colon MICROSCOPIC DIAGNOSIS A. Terminal ileum, biopsy: No pathologic change. B. Colon, random biopsy: Consistent with lymphocytic colitis. See comment. AM:melanie 03/29/2022 COMMENT Trichrome stain with matched control was used in the evaluation of this case. MICROSCOPIC DESCRIPTION Slides are reviewed. GROSS DESCRIPTION A - Received in fixative is one container labeled with the patient's name and designated terminal ileum. The specimen consists of two irregular fragments of light haynes soft tissue that in aggregate measure 0.8 x 0.2 x 0.1 cm. The specimen is totally submitted in one cassette. B - Received in fixative is one container labeled with the patient's name and designated random colon. The specimen consists of multiple irregular fragments of light haynes soft tissue that in aggregate measure 2 x 0.8 x 0.1 cm. The specimen is totally submitted in one cassette. / [place]:melanie 03/28/2022 TC:3 CPT: 46273 x2, 50918
[2022-03-27 10:20] VITALS: BP 111/72; BP 88/69; PULSE 66; RESP 16; TEMP 36.3; O2SAT 100
--- NOTE | 2022-03-27 10:20 | OP.CCLET_ITS ---
06/21/2022 Brissa Paulson Do Re : Colonoscopy procedure for Mae Richmond Dear Khurram This procedure was performed on Sunday, March 27, 2022. My impressions and recommendations are as follows: Impressions : - Congested mucosa in the sigmoid colon, in the transverse colon and in the ascending colon. Biopsied. - Congested mucosa in the terminal ileum. Biopsied. - Tortuous colon. - Redundant colon. Recommendations : - Discharge patient to home. - Resume previous diet. - Continue present medications. - Await pathology results. - Repeat colonoscopy in 5 years for surveillance. My findings are described in the full procedure note, which is enclosed. If I can be of further assistance, please feel free to contact me at . Sincerely, Darren Jenkins, 03/27/2022 10:20:05 AM This report has been signed electronically.
--- NOTE | 2022-03-27 10:20 | OP.COLON_ITS ---
Patient Name: Mae Richmond Procedure Date: 03/27/2022 9:42 AM Date of : 1975 Age: 46 Procedure: Colonoscopy Indications: Chronic diarrhea Providers: Darren Jenkins DO Medicines: Monitored Anesthesia Care Patient Profile: Last Colonoscopy: date unknown. Complications: No immediate complications. Procedure: Pre-Anesthesia Assessment: - Prior to the procedure, a History and Physical was performed, and patient medications and allergies were reviewed. The risks and benefits of the procedure and the sedation options and risks were discussed with the patient. All questions were answered and informed consent was obtained. Patient identification and proposed procedure were verified by the physician in the pre-procedure area. Mental Status Examination: alert and oriented. Airway Examination: normal oropharyngeal airway and neck mobility. Respiratory Examination: clear to auscultation. CV Examination: normal. Prophylactic Antibiotics: The patient does not require prophylactic antibiotics. Prior Anticoagulants: The patient has taken no previous anticoagulant or antiplatelet agents. After reviewing the risks and benefits, the patient was deemed in satisfactory condition to undergo the procedure. The anesthesia plan was to use moderate sedation / analgesia (conscious sedation). Immediately prior to administration of medications, the patient was re-assessed for adequacy to receive sedatives. The heart rate, respiratory rate, oxygen saturations, blood pressure, adequacy of pulmonary ventilation, and response to care were monitored throughout the procedure. The physical status of the patient was re-assessed after the procedure. After I obtained informed consent, the scope was passed under direct vision. Throughout the procedure, the patient's blood pressure, pulse, and oxygen saturations were monitored continuously. The Colonoscope was introduced through the anus and advanced to the terminal ileum. The colonoscopy was performed without difficulty. The patient tolerated the procedure well. The quality of the bowel preparation was good. Scope In: 9:52:18 AM Scope Withdrawal Time 0 hours 12 minutes 40 seconds Scope Out: 10:12:52 AM Total Procedure Duration Time 0 hours 20 minutes 34 seconds Findings: The perianal and digital rectal examinations were normal. An area of mildly congested mucosa was found in the sigmoid colon, in the transverse colon and in the ascending colon. Biopsies were taken with a cold forceps for histology. Verification of patient identification for the specimen was done. Estimated blood loss was minimal. A patchy area of the terminal ileum was congested. Biopsies were taken with a cold forceps for histology. Verification of patient identification for the specimen was done. Estimated blood loss was minimal. The sigmoid colon was moderately tortuous. The transverse colon was mildly redundant. Impression: - Congested mucosa in the sigmoid colon, in the transverse colon and in the ascending colon. Biopsied. - Congested mucosa in the terminal ileum. Biopsied. - Tortuous colon. - Redundant colon. Recommendation: - Discharge patient to home. - Resume previous diet. - Continue present medications. - Await pathology results. - Repeat colonoscopy in 5 years for surveillance. Procedure Code(s): --- Professional --- 01311, Colonoscopy, flexible; with biopsy, single or multiple CPT copyright 2017 [employer]. All rights reserved. The codes documented in this report are preliminary and upon pest control technician review may be revised to meet current compliance requirements. Darren Jenkins DO 03/27/2022 10:20:05 AM This report has been signed electronically. Number of Addenda: 1 Note Initiated On: 03/27/2022 9:42 AM Addendum Number: 1 Addendum Date: 06/21/2022 6:24:03 AM MAC was used as sedation for this procedure. Darren Jenkins DO 06/21/2022 6:24:07 AM This report has been signed electronically.
[2022-03-27 10:25] VITALS: BP 111/72; BP 90/53; PULSE 63; RESP 16; O2SAT 100
[2022-03-27 10:30] VITALS: BP 111/72; BP 95/57; PULSE 55; RESP 16; O2SAT 100
[2022-03-27 10:39] VITALS: BP 111/72; BP 99/60; PULSE 58; RESP 16; TEMP 36.8; O2SAT 100
[2022-03-27 10:57] VITALS: BP 111/72
== END 2022-03-27 11:03 | disposition home or self-care (01) ==
LOC: EN 08:39 → AC 08:40
PROVIDERS: PCP Family Medicine; Referring Provider Family Medicine; Visit Provider Internal Medicine Gastroenterology
PROC: 0DJD8ZZ Inspection of Lower Intestinal Tract, Via Natural or Artificial Opening Endoscopic (ICD-10-PCS; CPT 45378; principal; 2022-03-27 09:40)
DX: K52.832 Lymphocytic colitis (principal); Q43.8 Other specified congenital malformations of intestine; K63.89 Other specified diseases of intestine; F17.200 Nicotine dependence, unspecified, uncomplicated; I10 Essential (primary) hypertension; Z79.899 Other long term (current) drug therapy
CPT/HCPCS: 45380; 83630; 87493; 87506; 88305; 88313; J7120; J2405

== ENCOUNTER → 2022-07-11 | Outpatient (CLI) | payer OTHER, SELFPAY ==
[2022-07-11 08:44] LABS: Bilirubin, Direct 0.17 mg/dL (0.00-0.30); Thyroid Stim Hormone (TSH) 3.79 uIU/mL (0.358-3.74)
[2022-07-11 09:21] LABS: Hepatitis C Antibody Non-Reactive (Nonreactive)
== END | disposition home or self-care (01) ==
LOC: LAB 07:14
PROVIDERS: PCP Family Medicine; Referring Provider Family Medicine; Visit Provider Family Medicine
DX: Z00.00 Encounter for general adult medical examination without abnormal findings (principal); Z13.6 Encounter for screening for cardiovascular disorders; Z13.1 Encounter for screening for diabetes mellitus; Z11.59 Encounter for screening for other viral diseases
CPT/HCPCS: 36415; 82248; 84443; 86803

== ENCOUNTER → 2022-07-12 | Outpatient (CLI) | payer OTHER, SELFPAY ==
--- NOTE | 2022-07-12 10:13 | NM_ITS ---
CLINICAL: 46-year-old female with history of abdominal bloating. SEMI-SOLID PHASE 99m Tc SULFUR COLLOID GASTRIC EMPTYING STUDY COMPARISON: None available FINDINGS: The patient was administered 1.1 mCi of 99m Tc sulfur colloid mixed with oatmeal and consumed per os. Image acquisitions in the anterior-posterior projections were obtained for 60 minutes. There is prompt visualization of the stomach. There is no gastroesophageal reflux identified. The T ? emptying was calculated to be 28.5 minutes, (Normal: 12-56 minutes). NM/Gastric Emptying Study IMPRESSION: 1. NORMAL 99m Tc sulfur colloid semi-solid phase (oatmeal) gastric emptying imaging examination. A. There is normal and preserved semi-solid phase gastric emptying compared to normal controls. (Jovany et al, J Nucl Med Tech 38: 186, 2010). Electronically Signed: Devan Issa, at 21:33 EDT ,
== END | disposition home or self-care (01) ==
LOC: NM 10:12
PROVIDERS: PCP Family Medicine; Referring Provider Nurse Practitioner Adult Health; Visit Provider Nurse Practitioner Adult Health
DX: R10.13 Epigastric pain (principal); R14.0 Abdominal distension (gaseous)
CPT/HCPCS: 78264; A9541

== ENCOUNTER → 2023-02-06 | Outpatient (CLI) | payer OTHER, SELFPAY ==
[2023-02-06 08:32] LABS: AST(SGOT) 12 U/L (15-37); Alanine Aminotransfer ALT/SGPT 17 U/L (13-56); Albumin, Serum 3.5 g/dL (3.2-5.0); Alkaline Phosphatase 55 U/L (45-117); Anion Gap 5 (5-15); BUN 21 mg/dL (7-18); BUN/Creat Ratio 22.5 RATIO (10-20); Calcium,Total 8.9 mg/dL (8.5-10.1); Chloride 106 mmol/L (98-107); Creatinine, Serum 0.93 mg/dL (0.55-1.02); EST Glomerular Filtration Rate 68 mL/min (>60); Est Glom Filt Rate - Afr Amer 83 mL/min (>60); Globulin 3.4 g/dL (2.2-4.2); Glucose 106 mg/dL (74-106); Potassium 3.7 mmol/L (3.5-5.1); Protein, Total 6.9 g/dL (6.4-8.2); Sodium Level 140 mmol/L (136-145)
== END | disposition home or self-care (01) ==
LOC: LAB 07:13
PROVIDERS: PCP Family Medicine; Referring Provider Family Medicine; Visit Provider Family Medicine
DX: I10 Essential (primary) hypertension (principal); R79.89 Other specified abnormal findings of blood chemistry
CPT/HCPCS: 36415; 80053; 84443

== ENCOUNTER → 2023-02-14 | Outpatient (CLI) | payer OTHER, SELFPAY ==
--- NOTE | 2023-02-14 08:31 | BI_ITS ---
MAMMOGRAPHY - BILATERAL SCREENING REASON FOR EXAM: Female, 47 years old. Routine annual screening examination. PERTINENT HISTORY: Aunt with breast cancer. TECHNIQUE: Digital bilateral breast wes (3D mammographic acquisition) in the CC and MLO projections. 2-D mediolateral oblique (MLO) and craniocaudad (CC) views of both breasts were obtained. CAD: Full Field Digital Mammography with Computer Added Detection was performed. COMPARISON: Comparison is made with prior study dated January 10, 2022 and December 13, 2020. FINDINGS: Breast Composition: The breasts are heterogeneously dense, which may obscure small masses. There are no dominant masses or suspicious calcifications. Stable small benign-appearing bilateral axillary lymph nodes. No other significant abnormalities are identified. There has been no significant change since the prior study. BI/SCRN MAMM (CAD)W/WES BILAT IMPRESSION: Stable bilateral screening mammogram. Yearly follow-up mammogram recommended. (A) ASSESSMENT CATEGORY: BIRADS Category 2: Benign. A letter regarding these results will be sent to the patient by the facility within 30 days. Approximately 10% of breast cancers are not detected by mammography. A normal mammogram should not delay biopsy of a clinically suspicious abnormality. [id number] Electronically Signed: Audie Dave MD at 10:10 EDT ,
== END | disposition home or self-care (01) ==
LOC: OPBI 08:29
PROVIDERS: PCP Family Medicine; Referring Provider Family Medicine; Visit Provider Family Medicine
DX: Z12.31 Encounter for screening mammogram for malignant neoplasm of breast (principal)
CPT/HCPCS: 77063; 77067

== ENCOUNTER → 2023-05-25 | Outpatient (CLI) | payer OTHER, SELFPAY ==
[2023-05-25 08:42] LABS: ALB/GLOB Ratio 0.9 RATIO (0.9-2.4); AST(SGOT) 14 U/L (15-37); Alanine Aminotransfer ALT/SGPT 13 U/L (13-56); Albumin, Serum 3.1 g/dL (3.2-5.0); Alkaline Phosphatase 72 U/L (45-117); Anion Gap 5 (5-15); BUN 22 mg/dL (7-18); BUN/Creat Ratio 23.8 RATIO (10-20); Calcium,Total 8.7 mg/dL (8.5-10.1); Chloride 109 mmol/L (98-107); Cholesterol 195 mg/dL (200); Creatinine, Serum 0.92 mg/dL (0.55-1.02); EST Glomerular Filtration Rate 69 mL/min (>60); Est Glom Filt Rate - Afr Amer 83 mL/min (>60); Globulin 3.5 g/dL (2.2-4.2); Glucose 94 mg/dL (74-106); High Density Lipoprotein 47 mg/dL; Potassium 3.7 mmol/L (3.5-5.1); Protein, Total 6.6 g/dL (6.4-8.2); Sodium Level 140 mmol/L (136-145); Thyroid Stim Hormone (TSH) 4.56 uIU/mL (0.358-3.74); Triglycerides 189 mg/dL; Very Low Density Lipoprotein 38 mg/dL (5-40)
[2023-05-25 09:29] LABS: Vitamin D,25 Hydroxy 41.8 ng/mL
== END | disposition home or self-care (01) ==
LOC: LAB 07:02
PROVIDERS: PCP Family Medicine; Referring Provider Family Medicine; Visit Provider Family Medicine
DX: Z00.00 Encounter for general adult medical examination without abnormal findings (principal); Z13.1 Encounter for screening for diabetes mellitus; Z13.6 Encounter for screening for cardiovascular disorders; I10 Essential (primary) hypertension; K21.9 Gastro-esophageal reflux disease without esophagitis; F41.9 Anxiety disorder, unspecified
CPT/HCPCS: 36415; 80053; 80061; 82306; 84443

== ENCOUNTER 2023-06-06 05:47 | Day surgery (SDC) | payer OTHER, SELFPAY ==
[2023-06-06 06:21] VITALS: BP 123/82; PULSE 66; RESP 16; TEMP 36.6; O2SAT 98; BMI 26.2
[2023-06-06] MEDS: Lactated Ringers 1,000 ML 15 ML IV (06:30)
--- NOTE | 2023-06-06 07:00 | EGD_PTH ---
PATIENT: CLAIRE THAKUR LOC: EN U#:[id number] AGE/SX: 47/F ROOM: RE06/06/[address]: Dr. Darren Jenkins DO : 1975 BED: DIS: 06/06/2023 SPEC #: [id number] RECD: 06/06/23 12:26 STATUS: YENNY REElisabeth #: [id number] FRANKLIN: 06/06/23 07:[address]: Darren Jenkins DEPT: SURGICAL PATHOLOGY RECD BY: Miguel Brothers ENTERED: 06/06/23 13:01 SP TYPE: EGD BIOPSY OSIRIS DR: Dr. Brissa Davey DO Tissues: Esophagus, NOS Procedures: Special Stain Group II Surgery Specimen Level IV Alcian Blue/PAS (control) HEADER OPERATION: EGD ([facility]), biopsy PRE-OP DIAGNOSIS: Heartburn, lymphocytic colitis TISSUE SUBMITTED: Distal esophagus biopsy MICROSCOPIC DIAGNOSIS Distal esophagus, biopsy: Fragments of gastric mucosa with mild chronic inflammation. No evidence of goblet cell metaplasia. See comment. AM:melanie 06/07/2023 COMMENT Alcian blue/PAS stain with matched control supports the above diagnosis. MICROSCOPIC DESCRIPTION Slides are reviewed. GROSS DESCRIPTION Received in fixative is one container labeled with the patient's name and designated distal esophagus biopsy. The specimen consists of multiple irregular fragments of light haynes soft tissue that in aggregate measure 1.0 x 0.3 x 0.1 cm. The specimen is totally submitted in one cassette. / SJ:melanie 06/06/2023 TC:3 CPT: 31591, 10838
--- NOTE | 2023-06-06 07:14 | PCM.HP.BLA ---
History and Physical Date of Admission: 06/06/23 47 F who presents to the office today for 3 month f/u lymphocytic colitis. At her last appt we resumed 6 mg daily of budesonide because her symptoms returned w/in a month of discontinuing it--abd discomfort, gas, loose stools. No adverse effects. She would like to continue it. She wonders about a possible hiatal hernia, often has discomfort and bulge in epigastrium. Return of heartburn so just started omeprazole daily from PCP. No prior EGD. ROS Const Constitutional: No fatigue ENT ENT: No difficulty swallowing Gastro GI: Positive for bloating, heartburn and excessive flatus; No abdominal pain, belching, change in bowel habits, change in stool character, coffee ground emesis, constipation, cramping, diarrhea, difficulty swallowing, feeling full early, incontinent of stools, Vomiting blood/hematemesis, Blood in stool, loose stools, Black,tarry stools, nausea/dyspepsia, pain with swallowing, vomiting or other Musc Musculoskeletal: No joint pain Skin Skin: No yellowing of the eye or itchy eyes Psych Psychiatric: No anxiety and No depression Endo Endocrine: No fatigue Aller/Imm Allergy/Immunologic: No itchy eyes Mitchel/Lymp Hematologic/Lymphatic: No easy bleeding or easy bruising Exam Const General: cooperative, healthy appearing and comfortable Nutritional Appearance: average body habitus Orientation: alert, awake and oriented x3 Quality Reporting Tobacco Screening ([facility] 138) Smoking Status: Current every day smoker Assessment and Plan Assessment and Plan (1) Heartburn: Status: Chronic Plan: She wonders about a hiatal hernia, started omeprazole daily last week from PCP, will get EGD (2) Lymphocytic colitis: Status: Chronic Plan: Feels much better on budesonide 6 mg daily; we will eventually try tapering off again I have examined the patient and the H&P has been reviewed. There are no clinical changes since date of exam.
--- NOTE | 2023-06-06 07:33 | OP.CCLET_ITS ---
06/06/2023 Brissa Paulson Do Re : Upper GI endoscopy procedure for Mae Richmond Dear Khurram This procedure was performed on Tuesday, June 06, 2023. My impressions and recommendations are as follows: Impressions : - Normal esophagus. - Z-line irregular, 38 cm from the incisors. Biopsied. - Small hiatal hernia. - Normal second portion of the duodenum. Recommendations : - Discharge patient to home. - Resume previous diet. - Continue present medications. - Await pathology results. My findings are described in the full procedure note, which is enclosed. If I can be of further assistance, please feel free to contact me at . Sincerely, Darren Jenkins, 06/06/2023 7:32:55 AM This report has been signed electronically.
--- NOTE | 2023-06-06 07:33 | OP.EGD_ITS ---
Patient Name: Mae Richmond Procedure Date: 06/06/2023 7:15 AM Date of : 1975 Age: 47 Procedure: Upper GI endoscopy Indications: Heartburn, Suspected esophageal reflux Providers: Darren Jenkins DO Referring MD: Darren Jenkins DO Medicines: Monitored Anesthesia Care Patient Profile: This is a 47 year old female. Refer to note in patient chart for documentation of history and physical. Patient has symptoms of chronic heartburn. Complications: No immediate complications. Procedure: Pre-Anesthesia Assessment: - Prior to the procedure, a History and Physical was performed, and patient medications and allergies were reviewed. The patient is competent. The risks and benefits of the procedure and the sedation options and risks were discussed with the patient. All questions were answered and informed consent was obtained. Patient identification and proposed procedure were verified by the physician in the pre-procedure area. Mental Status Examination: alert and oriented. Respiratory Examination: clear to auscultation. CV Examination: normal. Prophylactic Antibiotics: The patient does not require prophylactic antibiotics. Prior Anticoagulants: The patient has taken no anticoagulant or antiplatelet agents. ASA Grade Assessment: II - A patient with mild systemic disease. After reviewing the risks and benefits, the patient was deemed in satisfactory condition to undergo the procedure. The anesthesia plan was to use monitored anesthesia care (MAC). Immediately prior to administration of medications, the patient was re-assessed for adequacy to receive sedatives. The heart rate, respiratory rate, oxygen saturations, blood pressure, adequacy of pulmonary ventilation, and response to care were monitored throughout the procedure. The physical status of the patient was re-assessed after the procedure. After obtaining informed consent, the endoscope was passed under direct vision. Throughout the procedure, the patient's blood pressure, pulse, and oxygen saturations were monitored continuously. The gastroscope was introduced through the mouth, and advanced to the second part of duodenum. The upper GI endoscopy was accomplished without difficulty. The patient tolerated the procedure well. Scope In: 7:23:05 AM Scope Out: 7:26:24 AM Total Procedure Duration Time 0 hours 3 minutes 19 seconds Findings: The examined esophagus was normal. The Z-line was irregular and was found 38 cm from the incisors. Biopsies were taken with a cold forceps for histology. Verification of patient identification for the specimen was done. Estimated blood loss was minimal. A small hiatal hernia was present. No other significant abnormalities were identified in a careful examination of the stomach. The second portion of the duodenum was normal. Impression: - Normal esophagus. - Z-line irregular, 38 cm from the incisors. Biopsied. - Small hiatal hernia. - Normal second portion of the duodenum. Recommendation: - Discharge patient to home. - Resume previous diet. - Continue present medications. - Await pathology results. Procedure Code(s): --- Professional --- 36472, Esophagogastroduodenoscopy, flexible, transoral; with biopsy, single or multiple CPT copyright 2021 [employer]. All rights reserved. The codes documented in this report are preliminary and upon fish boning machine feeder review may be revised to meet current compliance requirements. Darren Jenkins DO 06/06/2023 7:32:55 AM This report has been signed electronically. Number of Addenda: 0 Note Initiated On: 06/06/2023 7:15 AM
[2023-06-06 07:35] VITALS: BP 116/70; BP 123/82; PULSE 94; RESP 18; TEMP 36.4; O2SAT 93
[2023-06-06 07:40] VITALS: BP 108/72; BP 123/82; PULSE 83; RESP 18; O2SAT 95
[2023-06-06 07:44] VITALS: BP 105/70; BP 123/82; PULSE 70; RESP 18; O2SAT 96
[2023-06-06 07:46] VITALS: BP 110/72; BP 123/82; PULSE 67; RESP 18; TEMP 36.1; O2SAT 96
[2023-06-06 08:04] VITALS: BP 123/82
== END 2023-06-06 08:10 | disposition home or self-care (01) ==
LOC: EN 05:47 → AC 05:48
PROVIDERS: PCP Family Medicine; Referring Provider Internal Medicine Gastroenterology; Visit Provider Internal Medicine Gastroenterology
PROC: 0DJ08ZZ Inspection of Upper Intestinal Tract, Via Natural or Artificial Opening Endoscopic (ICD-10-PCS; CPT 43235; principal; 2023-06-06 06:55)
DX: K21.00 Gastro-esophageal reflux disease with esophagitis, without bleeding (principal); K44.9 Diaphragmatic hernia without obstruction or gangrene; F17.200 Nicotine dependence, unspecified, uncomplicated; K52.832 Lymphocytic colitis; Z79.899 Other long term (current) drug therapy; I10 Essential (primary) hypertension; Z87.19 Personal history of other diseases of the digestive system
CPT/HCPCS: 43239; 88305; 88313; J7120; J2405

== ENCOUNTER → 2023-08-06 | Outpatient (CLI) | payer OTHER, SELFPAY ==
[2023-08-06 08:15] LABS: Free T3 2.4 pg/mL (2.18-3.98); T4 Free Direct 0.87 ng/dL (0.76-1.46); Thyroid Stim Hormone (TSH) 3.94 uIU/mL (0.358-3.74)
[2023-08-07 14:09] LABS: Thyroglobulin Antibody < 1.0 IU/mL (0.0-0.9); Thyroid Peroxidase AB < 9 IU/mL (0-34)
== END | disposition home or self-care (01) ==
LOC: LAB 07:08
PROVIDERS: PCP Family Medicine; Referring Provider Family Medicine; Visit Provider Family Medicine
DX: R79.89 Other specified abnormal findings of blood chemistry (principal)
CPT/HCPCS: 36415; 84439; 84443; 84481; 86376; 86800

== ENCOUNTER → 2024-02-19 | Outpatient (CLI) | payer OTHER, SELFPAY ==
[2024-02-19 15:44] LABS: ALB/GLOB Ratio 1.1 RATIO (0.9-2.4); AST(SGOT) 17 U/L (15-37); Alanine Aminotransfer ALT/SGPT 17 U/L (13-56); Albumin, Serum 3.7 g/dL (3.2-5.0); Alkaline Phosphatase 70 U/L (45-117); Anion Gap 3 (5-15); BUN 23 mg/dL (7-18); Calcium,Total 9.2 mg/dL (8.5-10.1); Chloride 106 mmol/L (98-107); Cholesterol 234 mg/dL (200); Creatinine, Serum 0.88 mg/dL (0.55-1.02); EST Glomerular Filtration Rate 72 mL/min (>60); Est Glom Filt Rate - Afr Amer 87 mL/min (>60); Globulin 3.5 g/dL (2.2-4.2); Glucose 105 mg/dL (74-106); High Density Lipoprotein 43 mg/dL; Potassium 4.6 mmol/L (3.5-5.1); Protein, Total 7.2 g/dL (6.4-8.2); Sodium Level 138 mmol/L (136-145); Thyroid Stim Hormone (TSH) 1.54 uIU/mL (0.358-3.74); Triglycerides 425 mg/dL
== END | disposition home or self-care (01) ==
LOC: LAB 13:26
PROVIDERS: PCP Family Medicine; Referring Provider Family Medicine; Visit Provider Family Medicine
DX: Z00.00 Encounter for general adult medical examination without abnormal findings (principal); F41.9 Anxiety disorder, unspecified; K21.9 Gastro-esophageal reflux disease without esophagitis; Z13.6 Encounter for screening for cardiovascular disorders
CPT/HCPCS: 36415; 80053; 80061; 84443

== ENCOUNTER → 2024-03-05 | Outpatient (CLI) | payer OTHER, SELFPAY ==
--- NOTE | 2024-03-05 07:30 | BI_ITS ---
MAMMOGRAPHY - BILATERAL SCREENING REASON FOR EXAM: Female, 48 years old. Routine annual screening examination. PERTINENT HISTORY: Aunt with breast cancer. TECHNIQUE: Digital bilateral breast wes (3D mammographic acquisition) in the CC and MLO projections. 2-D mediolateral oblique (MLO) and craniocaudad (CC) views of both breasts were obtained. CAD: Full Field Digital Mammography with Computer Added Detection was performed. COMPARISON: Comparison is made with prior study February 14, 2023 and January 10, 2022. FINDINGS: Breast Composition: The breasts are heterogeneously dense, which may obscure small masses. There are no dominant masses or suspicious calcifications. Stable bilateral sac containing axillary lymph nodes. No other significant abnormalities are identified. There has been no significant change since the prior study. BI/SCRN MAMM (CAD)W/WES BILAT IMPRESSION: Stable bilateral screening mammogram. Yearly follow-up mammogram recommended. (A) ASSESSMENT CATEGORY: BIRADS Category 2: Benign. A letter regarding these results will be sent to the patient by the facility within 30 days. Approximately 10% of breast cancers are not detected by mammography. A normal mammogram should not delay biopsy of a clinically suspicious abnormality. [id number] Electronically Signed: Audie Dave MD at 9:36 EDT ,
== END | disposition home or self-care (01) ==
LOC: OPBI 07:27
PROVIDERS: PCP Family Medicine; Referring Provider Family Medicine; Visit Provider Family Medicine
DX: Z12.31 Encounter for screening mammogram for malignant neoplasm of breast (principal); Z80.3 Family history of malignant neoplasm of breast
CPT/HCPCS: 77063; 77067

== ENCOUNTER → 2024-08-13 | Outpatient (CLI) | payer OTHER, SELFPAY ==
--- NOTE | 2024-08-13 10:08 | RAD_ITS ---
STUDY: X-RAY CHEST REASON FOR EXAM: Female, 48 years old. Fever and cough TECHNIQUE: PA and lateral views of the chest. COMPARISON: None. FINDINGS: The lungs are clear and expanded. There is no demonstrated pleural abnormality. Normal size heart. Normal mediastinum and julio. Normal visualized pulmonary arteries. Normal visualized aortic arch and descending thoracic aorta. Mild rotatory scoliosis. Normal visualized ribs, clavicles, and shoulders. There is no demonstrated abnormality of the visualized soft tissue structures of the upper abdomen. RAD/Chest PA and Lateral IMPRESSION: No acute pulmonary process Electronically Signed: Mehran Milner MD at 11:00 EST ,
== END | disposition home or self-care (01) ==
LOC: RAD 10:05
PROVIDERS: PCP Family Medicine; Referring Provider Nurse Practitioner Family; Visit Provider Nurse Practitioner Family
DX: U07.1 COVID-19 (principal); J20.9 Acute bronchitis, unspecified
CPT/HCPCS: 71046

== ENCOUNTER → 2024-09-16 | Outpatient (CLI) | payer OTHER, SELFPAY ==
[2024-09-16 10:54] LABS: ALB/GLOB Ratio 0.9 RATIO (0.9-2.4); AST(SGOT) 11 U/L (15-37); Alanine Aminotransfer ALT/SGPT 12 U/L (13-56); Albumin, Serum 3.5 g/dL (3.2-5.0); Alkaline Phosphatase 71 U/L (45-117); Anion Gap 8 (5-15); BUN 18 mg/dL (7-18); BUN/Creat Ratio 17.8 RATIO (10-20); Calcium,Total 8.8 mg/dL (8.5-10.1); Chloride 102 mmol/L (98-107); Cholesterol 224 mg/dL (200); Creatinine, Serum 1.01 mg/dL (0.55-1.02); EST Glomerular Filtration Rate 62 mL/min (>60); Est Glom Filt Rate - Afr Amer 75 mL/min (>60); Glucose 98 mg/dL (74-106); High Density Lipoprotein 52 mg/dL; Potassium 3.5 mmol/L (3.5-5.1); Protein, Total 7.5 g/dL (6.4-8.2); Sodium Level 139 mmol/L (136-145); Triglycerides 232 mg/dL; Very Low Density Lipoprotein 46 mg/dL (5-40)
== END | disposition home or self-care (01) ==
LOC: LAB 09:14
PROVIDERS: PCP Family Medicine; Referring Provider Family Medicine; Visit Provider Family Medicine
DX: Z00.00 Encounter for general adult medical examination without abnormal findings (principal); Z13.1 Encounter for screening for diabetes mellitus; Z13.6 Encounter for screening for cardiovascular disorders; R79.89 Other specified abnormal findings of blood chemistry
CPT/HCPCS: 36415; 80053; 80061; 84443

== ENCOUNTER → 2025-03-02 | Outpatient (CLI) | payer OTHER, SELFPAY | END | disposition home or self-care (01) | PROVIDERS: PCP Family Medicine; Referring Provider Family Medicine; Visit Provider Family Medicine | DX: R79.89 Other specified abnormal findings of blood chemistry (principal) | CPT/HCPCS: 36415; 84439; 84443 ==

== ENCOUNTER → 2025-06-18 | Outpatient (CLI) | payer OTHER, SELFPAY ==
--- NOTE | 2025-06-18 08:03 | BI_ITS ---
EXAM: SCRN MAMM (CAD)W/WES BILAT DATE: 06/18/2025 CLINICAL HISTORY: F, Age 49 y/o , SCREENING Routine screening TECHNIQUE: Procedure Code: [id number] Modality: MG Procedure: SCRN MAMM (CAD)W/WES BILAT COMPARISON: Prior exam(s) dated 03/05/2024. FINDINGS: TISSUE DENSITY: There are scattered areas of fibroglandular density. Bilateral Breast Mammographic Findings: No significant masses, calcifications or other abnormalities are identified. No interval change BI/SCRN MAMM (CAD)W/WES BILAT IMPRESSION: Stable screening mammogram OVERALL FINAL ASSESSMENT BI-RADS 1: NEGATIVE. RECOMMENDATION: Routine annual follow-up in 1 Year Additional Recommendation none A letter with findings and recommendations will be mailed to the patient. Reading Location: [id number]
== END | disposition home or self-care (01) ==
LOC: OPBI 08:00
PROVIDERS: PCP Family Medicine; Referring Provider Obstetrics & Gynecology; Visit Provider Obstetrics & Gynecology
DX: Z12.31 Encounter for screening mammogram for malignant neoplasm of breast (principal)
CPT/HCPCS: 77063; 77067

== ENCOUNTER → 2025-06-30 | Outpatient (CLI) | payer OTHER, SELFPAY ==
[2025-06-30 07:32] LABS: Hematocrit 42.4 % (37-47); Hemoglobin 14.8 g/dL (12.0-15.0); Mean Corp Hgb Conc 34.9 g/dL (32-36); Mean Corpuscular Volume 94.2 fL (81-99); Mean Platelet Vol. 10.0 fl (6.2-12.0); Platelet Count 249 K/mm3 (150-450); RBC Distribution Width CV 12.2 % (11.6-14.6); RBC Distribution Width SD 42.1 fl (35.1-43.9); Red Blood Count 4.50 M/mm3 (4.2-5.4); White Blood Count 8.0 K/mm3 (4.4-11.0)
[2025-06-30 07:48] LABS: AST(SGOT) 18 U/L (<=31); Alanine Aminotransfer ALT/SGPT 10 U/L (<=34); Albumin, Serum 4.3 g/dL (3.5-5.0); Alkaline Phosphatase 62 U/L (35-104); Anion Gap 11 (5-15); BUN 19 mg/dL (4-19); BUN/Creat Ratio 20.7 RATIO (10-20); Calcium,Total 9.7 mg/dL (7.6-11.0); Carbon Dioxide 27.7 mmol/L (21.0-32.0); Chloride 102 mmol/L (98-108); Cholesterol 255 mg/dL (<=200); Free T3 2.4 pg/mL (2.18-3.98); Globulin 3.0 g/dL (2.2-4.2); Glucose 99 mg/dL (70-99); Low Density Lipoprotein Calc. 171 mg/dL; Potassium 3.9 mmol/L (3.3-5.1); Triglycerides 159 mg/dL; Very Low Density Lipoprotein 32 mg/dL (5-40); cholesterol:hdl ratio screen 4.90
[2025-06-30 08:01] LABS: Iron 161 ug/dL (50-170)
== END | disposition home or self-care (01) ==
PROVIDERS: PCP Family Medicine; Referring Provider Family Medicine; Visit Provider Family Medicine
DX: K14.3 Hypertrophy of tongue papillae (principal); E03.9 Hypothyroidism, unspecified; I10 Essential (primary) hypertension; E78.5 Hyperlipidemia, unspecified
CPT/HCPCS: 36415; 80053; 80061; 83540; 84439; 84443; 84481; 85027